=== PATIENT | female | born 1945 | race Caucasian/White ===

== ENCOUNTER → 2018-05-02 07:26 | Outpatient (CLI) | payer MEDICARE, SELFPAY ==
[2018-05-02 09:17] LABS: HDL Cholesterol 49 mg/dL (40-60); Triglycerides 263 mg/dL (35-150)
[2018-05-02 09:24] LABS: Vitamin D 25 Hydroxy (D3) 38.7 ng/mL (30.0-100.0)
[2018-05-02 09:28] LABS: Cholesterol 360 mg/dL (140-199); LDL Cholesterol Calculated 258 mg/dL (<100)
== END ==
PROVIDERS: PCP Family Medicine; Visit Provider Family Medicine
DX: F33.8 Other recurrent depressive disorders (principal); Z13.220 Encounter for screening for lipoid disorders; E78.2 Mixed hyperlipidemia; M85.80 Other specified disorders of bone density and structure, unspecified site; E55.9 Vitamin D deficiency, unspecified
CPT/HCPCS: 36415; 80061; 82306

== ENCOUNTER → 2019-10-26 07:07 | Outpatient (CLI) | payer MEDICARE, SELFPAY ==
[2019-10-26 07:44] LABS: Alanine Aminotransferase 45 IU/L (<35); Albumin 4.1 g/dL (3.5-5.0); Albumin Globulin Ratio 1.5 (1.0-2.8); Alkaline Phosphatase 63 U/L (38-126); Aspartate Aminotransferase 44 IU/L (14-36); BUN Creatinine Ratio 18.3 (6-22); Bilirubin Total 0.7 mg/dL (0.2-1.3); Blood Urea Nitrogen 13 mg/dL (7-17); Calcium 9.1 mg/dL (8.4-10.2); Carbon Dioxide 28 mmol/L (22-32); Chloride 106 mmol/L (98-107); Cholesterol 241 mg/dL (140-199); Estimated Glomerular Filt Rate > 60.0 mL/min (>60); Globulin 2.8 g/dL (1.7-4.1); Glucose 95 mg/dL (80-110); HDL Cholesterol 35 mg/dL (40-60); HEMOLYSIS < 15 (0-50); LDL Cholesterol Calculated 149 mg/dL (<100); Potassium 4.3 mmol/L (3.4-5.1); Sodium 138 mmol/L (137-145); Total Protein 6.9 g/dL (6.3-8.2); Triglycerides 283 mg/dL (35-150)
[2019-10-26 08:50] LABS: Folate 16.2 ng/mL (2.76-20.0); Vitamin B12 642 pg/mL (239-931)
[2019-10-27 07:09] LABS: Insulin Level Total 15.6 uIU/mL (2.6-24.9)
[2019-10-28 00:09] LABS: Methylmalonic Acid,Serum 187 nmol/L (0-378)
== END ==
PROVIDERS: PCP Family Medicine; Referring Provider Family Medicine; Visit Provider Family Medicine
DX: E55.9 Vitamin D deficiency, unspecified (principal); E66.3 Overweight; E78.1 Pure hyperglyceridemia; E78.2 Mixed hyperlipidemia; M85.80 Other specified disorders of bone density and structure, unspecified site; Z83.3 Family history of diabetes mellitus; G62.9 Polyneuropathy, unspecified
CPT/HCPCS: 36415; 80053; 80061; 82607; 82746; 83090; 83525; 83921; 86140

== ENCOUNTER → 2020-06-01 07:31 | Outpatient (CLI) | payer MEDICARE, SELFPAY ==
[2020-06-01 09:40] LABS: Alanine Aminotransferase 20 IU/L (<35); Albumin 3.8 g/dL (3.5-5.0); Albumin Globulin Ratio 1.5 (1.0-2.8); Alkaline Phosphatase 45 U/L (38-126); Aspartate Aminotransferase 27 IU/L (14-36); BUN Creatinine Ratio 27.5 (6-22); Bilirubin Total 0.3 mg/dL (0.2-1.3); Blood Urea Nitrogen 19 mg/dL (7-17); Calcium 9.2 mg/dL (8.4-10.2); Carbon Dioxide 29 mmol/L (22-32); Chloride 106 mmol/L (98-107); Cholesterol 275 mg/dL (140-199); Estimated Glomerular Filt Rate > 60.0 mL/min (>60); Globulin 2.5 g/dL (1.7-4.1); Glucose 92 mg/dL (80-110); HDL Cholesterol 56 mg/dL (40-60); HEMOLYSIS < 15 (0-50); LDL Cholesterol Calculated 197 mg/dL (<100); Potassium 3.7 mmol/L (3.4-5.1); Sodium 139 mmol/L (137-145); Total Protein 6.3 g/dL (6.3-8.2); Triglycerides 108 mg/dL (35-150)
== END ==
PROVIDERS: PCP Family Medicine; Referring Provider Family Medicine; Visit Provider Family Medicine
DX: E66.3 Overweight (principal); E78.2 Mixed hyperlipidemia; E78.1 Pure hyperglyceridemia; G25.81 Restless legs syndrome; G62.9 Polyneuropathy, unspecified; Z83.3 Family history of diabetes mellitus
CPT/HCPCS: 36415; 80053; 80061

== ENCOUNTER 2020-10-10 13:30 | Outpatient (RCR) | payer MEDICARE, SELFPAY ==
--- NOTE | 2020-10-03 17:24 | ST.OPIE ---
Visit Care Team Role Provider Type Rose Mancia DO Attending Provider Physician Primary Care Provider Referring Provider Specialty: [facility] Address: [address] [place] [address], [address], [address] Email: [email or web address] Speech-Language Pathology Initial Evaluation NEUROLOGY MANAGER Adult Cognitive Linguistic Eval Start: 10/03/20 14:55 Freq: Status: Active Protocol: Document 10/03/20 14:57 LNK (Rec: 10/03/20 16:25 LNK [email or web address]) Adult Cognitive Linguistic Evaluation Session Time Visit Start Time 13:30 Visit Stop Time 14:30 Total Visit Minutes 60 Visit Information Visit Number 1 Plan of Care Dates 10/03/20-01/03/21 Referral Referring Provider Rose Mancia MD Reason for Referral Cognition Setting Assessment Location Outpatient Care Visit Type Note Type Initial evaluation Next Note Type Next Note Type Treatment Note Patient Information Identification Type Name,Date of Medical History Amanda Cortez was seen for a cognitive assessment at the referral of her physician, Dr. Mancia. According to records reviewed and discussion with the [facility], she recently had a cognitive screening that demonstrated concerns for cognitive decline . Amanda is here for a more thorough assessment of her cognition. According to Amanda , she has observed lately that she has difficulty with follow through on starting or completing activities she enjoys. Additionally she has noticed that she has been misplacing things such as her phone, keys, etc. She stated that she is currently living alone and it is getting hard to keep up with the maintenance around her home. She described her home as having difficulty getting rid of stuff and that her home is cluttered with a lot of things. She has been told by others that she may have ADHD. She has not followed up on that as she is not concerned. Occupation Status retired Hearing Hearing Level Hearing Aids Vision Comments needs glasses for reading Assessment Oral Motor Examination Completed No: Informal observation indicated oral structures and function are WNL Informal Assessment Receptive Language Normal Yes Expressive Language Normal Yes Speech Normal Yes Speech Impairment(s) Fast speech rate Cognitive Impairment(s) Attention Formal Assessment Standardized Test/Screener Type Cognitive Linguistic Quick Test (CLQT) Administration Complete Results The results of the CLQT are reported over 5 cognitive domains along with a clock drawing task. The domains assessed include: Attention, Memory, Executive Functions, Language, and Visuospatial Skills. During this visit, Amanda scored WNL for all 5 domains. Additionally, she met criteria for all domains for her age. Findings/Results Findings While Amanda's scores were found to be WNL, she did remark that she is beginning to lose items. She has started to place important items in a central place, which is helpful. Additionally, Amanda mentioned that she may be a hoarder and is having difficulty managing the maintenance on her home. She said she isn't following through on activities she enjoys, and doesn't keep up with it all. Her conversation was noted to be very scattered, going from one topic to another. A recommendation for a neuropsychological evaluation is recommended. Concomitant Factors Concomitant Factors Hearing loss Comment Amanda wears BRICENO; however the use of masks by others impacts hearing acuity Plan of Care Short Term Goals Review the results of the CLQT with Amanda.
--- NOTE | 2020-10-03 17:25 | ST.OPPOC ---
Physical, Occupational & Speech Therapy At [facility] Visit Care Team Role Provider Type Rose Mancia DO Attending Provider Physician Primary Care Provider Referring Provider Address: [address] [place] [address], [address], [address] Speech Pathology Plan of Care Plan of Care Dates 10/03/20-01/03/21 Findings While Amanda's scores were found to be WNL, she did remark that she is beginning to lose items. She has started to place important items in a central place, which is helpful. Additionally, Amanda mentioned that she may be a hoarder and is having difficulty managing the maintenance on her home. She said she isn't following through on activities she enjoys, and doesn't keep up with it all. Her conversation was noted to be very scattered, going from one topic to another. A recommendation for a neuropsychological evaluation is recommended. Short Term Goals Review the results of the CLQT with Amanda. Electronically Signed by: HUGO Estrella 10/03/20 [id number] Please Sign and Return: I have reviewed this Plan of Care and certify that the skilled therapy services above are required to meet the patient?s needs. Physician Signature Date Printed Name and Credentials Clinical Instructor Signature Printed Name and Credentials
--- NOTE | 2020-10-10 14:17 | ST.OPDS ---
Visit Care Team Role Provider Type Rose Mancia DO Attending Provider Physician Primary Care Provider Referring Provider Address: [address] [place] [address], [address], [place], [address] CERAMIC DESIGN ENGINEER Treatment Note CERAMIC DESIGN ENGINEER Treatment Note Start: 10/03/20 14:55 Freq: Status: Active Protocol: Document 10/10/20 14:08 LNK (Rec: 10/10/20 14:16 LNK [email or web address]) Speech Pathology Treatment Note Session Time Visit Start Time 13:30 Visit Stop Time 14:05 Total Visit Minutes 35 Visit Information Visit Number 2 Plan of Care Dates 10/03/20-01/03/21 Setting Treatment Setting Outpatient Care Visit Type Note Type Treatment Note Next Note Type Next Note Type Discharge Summary General Information General Information Amanda Cortez was seen for a cognitive assessment at the referral of her physician, Dr. Mancia. According to records reviewed and discussion with the [facility], she recently had a cognitive screening that demonstrated concerns for cognitive decline . Amanda is here for a more thorough assessment of her cognition. Subjective Identification Type Name Identification Reconciled With Intake Sheet Observations/Patient Presentation The results of the CLQT assessment tool are reported over 5 cognitive domains along with a clock drawing task. The domains assessed include: Attention, Memory, Executive Functions, Language, and Visuospatial Skills. During this visit, Amanda scored WNL for all 5 domains. Additionally, she met criteria for all domains for her age. Chief Complaint(s) Cognitive Patient Knowledge/Awareness of CERAMIC DESIGN ENGINEER Role Good in Treatment Objective Short Term Goals Review the results of the CLQT with Amanda. Treatment Activities The results of the CLQT were reviewed with Amanda and all questions were answered. The evaluation report was reviewed as well. Amanda was pleased with the results and relieved. She also reported that after the evaluation session, she went home and removed some of the clutter, donating some things and recycling others. She felt good about her changes. Currently Amanda is keeping lists of activities to do, buy and complete. This has been something she has been doing for some time, she stated. No ST is recommended at this time. Pt is discharged. Assessment Progress Towards Goals Appropriate for Discharge Plan Amount of Therapy Recommended No Further Therapy Therapy Recommendations Discharge from Speech Therapy
== END 2020-10-11 08:58 | disposition home or self-care (01) ==
LOC: SP 13:30
PROVIDERS: PCP Family Medicine; Referring Provider Family Medicine; Visit Provider Family Medicine
DX: Z97.4 Presence of external hearing-aid (principal); R41.3 Other amnesia
CPT/HCPCS: 92507; 96125

== ENCOUNTER 2020-12-15 13:00 | Outpatient (RCR) | payer MEDICARE, SELFPAY ==
[2020-10-20 09:45] VITALS: BP 110/58
--- NOTE | 2020-10-20 16:18 | PT.OIE ---
Current Diagnoses Difficulty in walking, not elsewhere classified (10/20/20) Unspecified abnormalities of gait and mobility (10/20/20) Past Medical History (Last Reviewed 09/15/20 @ 12:54 by Jose Mackenzie MD) BCC (basal cell carcinoma of skin) Cataract Family history of diabetes mellitus 2 para 2 History of cataract surgery (2013) History of SCC (squamous cell carcinoma) of skin Hyperlipidemia, mixed Neuropathy Normal Papanicolaou smear Obstructive sleep apnea treated with continuous positive airway pressure (CPAP) (01/03/17) Osteopenia (03/01/17) Pneumonia Postmenopausal Restless legs syndrome (01/04/16) RLS (restless legs syndrome) Seasonal affective disorder Status post surgical removal of malignant neoplasm of skin (1993) Vitamin D deficiency (04/19/17) Wears hearing aid in both ears (~05/2017) Past Surgical History (Last Reviewed 09/15/20 @ 12:54 by Jose Mackenzie MD) Anesthesia History of cataract surgery (2013) Status post surgical removal of malignant neoplasm of skin (1993) Visit Care Team Role Provider Type Rose Mancia DO Attending Provider Physician Family Provider Primary Care Provider Referring Provider Specialty: Family Practice Address: [address] [place] [address], [address], [facility] Email: [email or web address] Physical Therapy Initial Evaluation PT-OP-A Visit Information Start: 10/20/20 08:34 Freq: Status: Active Protocol: Document 10/20/20 09:45 AW (Rec: 10/20/20 17:17 AW [email or web address]) Out-Patient Physical Therapy Visit Information Visit Information Visit Type Initial Evaluation Visit Start Time 09:00 Visit Stop Time 09:45 Total Visit Minutes 45 Visit Number 1 Number of APPEALS NURSE Visits 0 Evaluation Information Evaluation Date 10/20/20 PT-OP-B Current Condition Start: 10/20/20 08:34 Freq: Status: Active Protocol: Document 10/20/20 09:45 AW (Rec: 10/20/20 08:42 AW [email or web address]) Current Condition History of Current Condition Onset Date at least a year Current Complaints imbalance, falls History of Current Condition Amanda reports falling once weekly and having difficulty getting off the floor. She believes there is an inattention component. She is falling mostly at home - inside or out in her garden. She admits her home is cluttered. She occasionally forgets she's wearing reading glasses which causes her to be disoriented. She denies any injurous falls but has many bruises. Her mother at age 94 after a fall. Pt endorses some lightheadedness when she changes position too suddenly. Her BP is typically low. She notes she has occasional tingling in the tops of her feet and anterior shins but that this improved with a 25# weight loss last year. Pt lives alone in [place]. She regularly walks with friends on the [employer]. The more I do, the easier it is to do it. Prior Treatments and Tests Saw ORTHODONTIC BAND MAKER for cognition screen which was WNL. Pt attended due to memory concerns but feels she has effective strategies to compensate. Future Testing and Treatments Planned 110/58 Developmental History Developmental History Pt has CHANCE and uses CPAP for sleep. She had RLS which resolved with weight loss. She has hearing loss and uses bilateral hearing aids. Treatment Goals Patient/Caregiver Goals Pt would like to be able to get on and off her men's bike without falling. She would like to be able to get up from the floor with more ease. SHe would like to be able to use her soaking tub. PT-OP-C Subjective Start: 10/20/20 08:34 Freq: Status: Active Protocol: Document 10/20/20 09:45 AW (Rec: 10/20/20 17:17 AW [email or web address]) OP-PT Subjective Patient Comments Patient Comments I'd like to be able to get off the floor more easily. Patient Questionnaires ABC- Activity Specific Balance Confidence Scale ABC Score 42 ABC Functional Impairment 40 to <60% Impaired (Score 41- 60) OP-PT Pain Assessment Pain Assessment Grid Paper Pain Assessment Grid Completed Yes: Pt denies pain PT-OP-D Balance Start: 10/20/20 08:34 Freq: Status: Active Protocol: Document 10/20/20 09:45 AW (Rec: 10/20/20 17:23 AW [email or web address]) Balance Tests mCTSIB mCTSIB Position 1 30 mCTSIB Position 2 20 - 25 - 20 mCTSIB Position 3 25 - 20 - 18 mCTSIB Position 4 20 - 15 - 16 PT-OP-E Functional Tests Start: 10/20/20 08:34 Freq: Status: Active Protocol: Document 10/20/20 09:45 AW (Rec: 10/20/20 17:28 AW [email or web address]) Functional Tests Five Times Sit to Stand Test Score 16.9 sec Comments 5 full sit <> stands without UE support Other Functional Gait Assessment Name of Test FGA Score Comment see scanned score sheet PT-OP-H Neuro Start: 10/20/20 08:34 Freq: Status: Active Protocol: Document 10/20/20 09:45 AW (Rec: 10/20/20 17:23 AW [email or web address]) Sensation Evaluation Gross Sensation Gross Sensation Left LE Impaired,Right LE Impaired Sensation Description Tingling Comments Summary Comments Pt endorses occasional tingling BLE from tops of feet to anterior shins. She states this has improved since she lost 25# last year. Coordination Evaluation Comments Coordination Comments All coordination testing ( finger to nose EO and EC, rapid pronation/supination, and foot tapping) WNL. Deep Tendon Reflex & Clonus Assessment Deep Tendon Reflex Bilateral Patellar Deep Tendon Reflex 2+ Normal Bilateral Bicep Deep Tendon Reflex 2+ Normal Vital Signs Blood Pressure Sitting Blood Pressure (90/60-120/80 mmHg) 110/58 L Blood Pressure Source Manual Cuff,Right Upper Extremity PT-OP-K Range of Motion Start: 10/20/20 08:34 Freq: Status: Active Protocol: Document 10/20/20 09:45 AW (Rec: 10/20/20 17:25 AW [email or web address]) Hip Goniometric Range of Motion Hip bilateral Hip ROM WFL Yes Testing Position Supine Comments All hip ROM WNL PT-OP-M Strength Start: 10/20/20 08:34 Freq: Status: Active Protocol: Document 10/20/20 09:45 AW (Rec: 10/20/20 17:25 AW [email or web address]) Hip Strength Hip Manual Muscle Testing bilateral Flexion (L2) 4 Good Extension (S1) 4 Good Abduction 4 Good Adduction 4+ Good+ External Rotation 4+ Good+ Internal Rotation 4+ Good+ Knee Strength Knee Manual Muscle Testing bilateral Flexion (S2) 5 Normal Extension (L3) 5 Normal PT-OP-T Assessment and Plan Start: 10/20/20 08:34 Freq: Status: Active Protocol: Document 10/20/20 09:45 AW (Rec: 10/23/20 16:18 AW [id number]) Physical Therapy Assessment Rehab Potential Rehabilitation Potential Good Evaluation Complexity Number of Personal Factors/Comorbidities 1-2 Number of Body Systems Impaired 3 Clinical Presentation at Evaluation Stable Impairments Impairments Balance,Gait,Sensation, Strength,Vestibular Other Concerns Fall Risk moderate per FGA Barriers to Rehabilitation Pt acknowledges her home is cluttered. She has had some memory concerns but cognitive testing was WNL and pt feels she has effective compensatory strategies. Goals Five Impairment falls Communications Strategist Goal (LTG) Pt will reduce falls frequency from weekly to monthly or less. LTG Duration 2 months - 12/23/20 Four Impairment self-efficacy Senior Care Goal (LTG) Pt will improve ABC Scale score from 42% to 60% or greater to demonstrate reduction in falls risk LTG Duration 2 months - 12/23/20 Three Impairment floor transfers Short Term Goal (STG) Pt will get in and out of her soaking tub without fear of falling. STG Duration 4 weeks - 11/17/20 Senior Care Goal (LTG) Pt will rise from the floor with or without chair support in 10 seconds or less to demonstrate improved strength and self-efficacy. LTG Duration 2 months - 12/23/20 Two Impairment strength Short Term Goal (STG) Pt will complete 5 Time Sit to Stand with no UE support in 12 seconds or less to demonstrate improved strength and reduction in falls risk. STG Duration 4 weeks - 11/17/20 Communications Strategist Goal (LTG) Pt will improve hip strength to at least 4+/5 all planes for improved stability in gait . LTG Duration 2 months - 12/23/20 One Impairment impaired balance Short Term Goal (STG) Pt will score 120 on mCTSIB to demonstrate improved balance systems integration. STG Duration 4 weeks - 11/17/20 Senior Care Goal (LTG) Pt will improve Functional Gait Assessment score from 23/ 30 to 26/30 or greater to match norms for age-matched peers and demonstrate reduction in falls risk. LTG Duration 2 months - 12/23/20 Assessment Summary Assessment Amanda is a 75 yo community- dwelling woman who presents to outpatient PT with complaints of frequent falls - up to once weekly. She is independent without assistive device at baseline. She reports her falls occur mostly at home - either inside in cluttered areas or outside on uneven surfaces. On assessment , pt has impaired bilateral hip strength, deficits in balance systems integration, and dynamic balance impairments which are contributing to her falls. Amanda is expected to benefit from skilled PT to address these impairments for overall reduction in her falls risk and to improve her ability to participate in self-care and recreational activities. Physical Therapy Plan Frequency and Duration Frequency of Treatment 1-2x/week Duration of Treatment 2 months Plan of Care Start Date 10/20/20 Plan of Care End Date 12/23/20 Therapeutic Interventions Therapeutic Interventions Balance Training,Gait Training ,Home Exercise Program, Neuromuscular Re-education, Patient/Caregiver Education, Self-Care/Home Management, Sensory Integration, Therapeutic Activities, Therapeutic Exercises Next Visit Focus/Plan Next Note Type Treatment Note Next Visit Plan Initiate static balance interventions. Consider dual task, increasing cognitive load.
--- NOTE | 2020-10-20 16:18 | PT.OPPOC ---
Physical, Occupational & Speech Therapy At [facility] Current Diagnoses Difficulty in walking, not elsewhere classified (10/20/20) Unspecified abnormalities of gait and mobility (10/20/20) Visit Care Team Role Provider Type Rose Mancia DO Attending Provider Physician Family Provider Primary Care Provider Referring Provider Specialty: Family Practice Address: [address] [place] [address], [address], [facility] Email: [email or web address] Plan Of Care PT-OP-T Assessment and Plan Start: 10/20/20 08:34 Freq: Status: Active Protocol: Document 10/20/20 09:45 AW (Rec: 10/23/20 16:18 AW [id number]) Physical Therapy Assessment Rehab Potential Rehabilitation Potential Good Evaluation Complexity Number of Personal Factors/Comorbidities 1-2 Number of Body Systems Impaired 3 Clinical Presentation at Evaluation Stable Impairments Impairments Balance,Gait,Sensation, Strength,Vestibular Other Concerns Fall Risk moderate per FGA Barriers to Rehabilitation Pt acknowledges her home is cluttered. She has had some memory concerns but cognitive testing was WNL and pt feels she has effective compensatory strategies. Goals Five Impairment falls Half-Way Goal (LTG) Pt will reduce falls frequency from weekly to monthly or less. LTG Duration 2 months - 12/23/20 Four Impairment self-efficacy Hand Flesher Goal (LTG) Pt will improve ABC Scale score from 42% to 60% or greater to demonstrate reduction in falls risk LTG Duration 2 months - 12/23/20 Three Impairment floor transfers Short Term Goal (STG) Pt will get in and out of her soaking tub without fear of falling. STG Duration 4 weeks - 11/17/20 Half-Way Goal (LTG) Pt will rise from the floor with or without chair support in 10 seconds or less to demonstrate improved strength and self-efficacy. LTG Duration 2 months - 12/23/20 Two Impairment strength Short Term Goal (STG) Pt will complete 5 Time Sit to Stand with no UE support in 12 seconds or less to demonstrate improved strength and reduction in falls risk. STG Duration 4 weeks - 11/17/20 Half-Way Goal (LTG) Pt will improve hip strength to at least 4+/5 all planes for improved stability in gait . LTG Duration 2 months - 12/23/20 One Impairment impaired balance Short Term Goal (STG) Pt will score 120 on mCTSIB to demonstrate improved balance systems integration. STG Duration 4 weeks - 11/17/20 Half-Way Goal (LTG) Pt will improve Functional Gait Assessment score from 23/ 30 to 26/30 or greater to match norms for age-matched peers and demonstrate reduction in falls risk. LTG Duration 2 months - 12/23/20 Assessment Summary Assessment Amanda is a 75 yo community- dwelling woman who presents to outpatient PT with complaints of frequent falls - up to once weekly. She is independent without assistive device at baseline. She reports her falls occur mostly at home - either inside in cluttered areas or outside on uneven surfaces. On assessment , pt has impaired bilateral hip strength, deficits in balance systems integration, and dynamic balance impairments which are contributing to her falls. Amanda is expected to benefit from skilled PT to address these impairments for overall reduction in her falls risk and to improve her ability to participate in self-care and recreational activities. Physical Therapy Plan Frequency and Duration Frequency of Treatment 1-2x/week Duration of Treatment 2 months Plan of Care Start Date 10/20/20 Plan of Care End Date 12/23/20 Therapeutic Interventions Therapeutic Interventions Balance Training,Gait Training ,Home Exercise Program, Neuromuscular Re-education, Patient/Caregiver Education, Self-Care/Home Management, Sensory Integration, Therapeutic Activities, Therapeutic Exercises Next Visit Focus/Plan Next Note Type Treatment Note Next Visit Plan Initiate static balance interventions. Consider dual task, increasing cognitive load. Plan of Care Dates Plan of Care Start Date 10/20/20 Plan of Care End Date 12/23/20 Electronically Signed by: Cris No, PT 10/23/20 [id number] Please Sign and Return: I have reviewed this Plan of Care and certify that the skilled therapy services above are required to meet the patient?s needs. Physician Signature Date Printed Name and Credentials Clinical Instructor Signature Printed Name and Credentials
--- NOTE | 2020-10-26 17:05 | PT.OTN ---
Current Diagnoses Difficulty in walking, not elsewhere classified (10/26/20) Unspecified abnormalities of gait and mobility (10/26/20) Physical Therapy Treatment Note PT-OP-A Visit Information Start: 10/20/20 08:34 Freq: Status: Active Protocol: Document 10/26/20 16:45 AW (Rec: 10/26/20 16:57 AW [id number]) Out-Patient Physical Therapy Visit Information Visit Information Visit Type Treatment Note Visit Start Time 16:00 Visit Stop Time 16:45 Total Visit Minutes 45 Visit Number 2 Number of ASSOCIATE DIRECTOR REGULATORY AFFAIRS Visits 0 PT-OP-B Current Condition Start: 10/20/20 08:34 Freq: Status: Active Protocol: Document 10/20/20 09:45 AW (Rec: 10/20/20 08:42 AW [email or web address]) Current Condition History of Current Condition Onset Date at least a year Current Complaints imbalance, falls History of Current Condition Amanda reports falling once weekly and having difficulty getting off the floor. She believes there is an inattention component. She is falling mostly at home - inside or out in her garden. She admits her home is cluttered. She occasionally forgets she's wearing reading glasses which causes her to be disoriented. She denies any injurous falls but has many bruises. Her mother at age 94 after a fall. Pt endorses some lightheadedness when she changes position too suddenly. Her BP is typically low. She notes she has occasional tingling in the tops of her feet and anterior shins but that this improved with a 25# weight loss last year. Pt lives alone in [place]. She regularly walks with friends on the [facility] trails. The more I do, the easier it is to do it. Prior Treatments and Tests Saw PUNCH MACHINE HAND for cognition screen which was WNL. Pt attended due to memory concerns but feels she has effective strategies to compensate. Future Testing and Treatments Planned 110/58 Developmental History Developmental History Pt has CHANCE and uses CPAP for sleep. She had RLS which resolved with weight loss. She has hearing loss and uses bilateral hearing aids. Treatment Goals Patient/Caregiver Goals Pt would like to be able to get on and off her men's bike without falling. She would like to be able to get up from the floor with more ease. SHe would like to be able to use her soaking tub. PT-OP-C Subjective Start: 10/20/20 08:34 Freq: Status: Active Protocol: Document 10/26/20 16:45 AW (Rec: 10/26/20 17:01 AW [email or web address]) OP-PT Subjective Patient Comments Patient Comments I've been using the sit to stand technique you taught me. PT-OP-D Balance Start: 10/20/20 08:34 Freq: Status: Active Protocol: Document 10/20/20 09:45 AW (Rec: 10/20/20 17:23 AW [email or web address]) Balance Tests mCTSIB mCTSIB Position 1 30 mCTSIB Position 2 20 - 25 - 20 mCTSIB Position 3 25 - 20 - 18 mCTSIB Position 4 20 - 15 - 16 PT-OP-E Functional Tests Start: 10/20/20 08:34 Freq: Status: Active Protocol: Document 10/20/20 09:45 AW (Rec: 10/20/20 17:28 AW [email or web address]) Functional Tests Five Times Sit to Stand Test Score 16.9 sec Comments 5 full sit <> stands without UE support Other Functional Gait Assessment Name of Test FGA Score Comment see scanned score sheet PT-OP-H Neuro Start: 10/20/20 08:34 Freq: Status: Active Protocol: Document 10/20/20 09:45 AW (Rec: 10/20/20 17:23 AW [email or web address]) Sensation Evaluation Gross Sensation Gross Sensation Left LE Impaired,Right LE Impaired Sensation Description Tingling Comments Summary Comments Pt endorses occasional tingling BLE from tops of feet to anterior shins. She states this has improved since she lost 25# last year. Coordination Evaluation Comments Coordination Comments All coordination testing ( finger to nose EO and EC, rapid pronation/supination, and foot tapping) WNL. Deep Tendon Reflex & Clonus Assessment Deep Tendon Reflex Bilateral Patellar Deep Tendon Reflex 2+ Normal Bilateral Bicep Deep Tendon Reflex 2+ Normal Vital Signs Blood Pressure Sitting Blood Pressure (90/60-120/80 mmHg) 110/58 L Blood Pressure Source Manual Cuff,Right Upper Extremity PT-OP-K Range of Motion Start: 10/20/20 08:34 Freq: Status: Active Protocol: Document 10/20/20 09:45 AW (Rec: 10/20/20 17:25 AW [email or web address]) Hip Goniometric Range of Motion Hip bilateral Hip ROM WFL Yes Testing Position Supine Comments All hip ROM WNL PT-OP-M Strength Start: 10/20/20 08:34 Freq: Status: Active Protocol: Document 10/20/20 09:45 AW (Rec: 10/20/20 17:25 AW [email or web address]) Hip Strength Hip Manual Muscle Testing bilateral Flexion (L2) 4 Good Extension (S1) 4 Good Abduction 4 Good Adduction 4+ Good+ External Rotation 4+ Good+ Internal Rotation 4+ Good+ Knee Strength Knee Manual Muscle Testing bilateral Flexion (S2) 5 Normal Extension (L3) 5 Normal PT-OP-Q Treatments Start: 10/20/20 08:34 Freq: Status: Active Protocol: Document 10/26/20 16:45 AW (Rec: 10/26/20 16:57 AW [id number]) Therapeutic Exercises Supine Exercises bridge Supine Exercise Name bridge Reps/Minutes 3SH x 8 Comments cued PPT and heel drive; HEP pec stretch Supine Exercise Name pec stretch Side bilateral Reps/Minutes 60 sec x 2 Comments on tx table; arms ~110 deg abducted; HEP Neuro Re-Education Treatment Balance Activities gait with head turns Details gait with head turns Surface level Reps/Duration 5 min Comments Pt requires CGA for lateral LOB x 3. gaze stabilzation Details gaze stabilzation Surface seated Reps/Duration 5 min Comments Index card held at arm length. Pt instructed to keep letters in focus. Pt able to stabilize gaze with head turns at 120 bpm without losing focus, no dizziness. corner balance Details WBOS NBOS and semi-tandem stance with EO, EC, and head turns Surface level Equipment corner, chair in front Reps/Duration 25 min PT-OP-T Assessment and Plan Start: 10/20/20 08:34 Freq: Status: Active Protocol: Document 10/26/20 16:45 AW (Rec: 10/26/20 17:05 AW [email or web address]) Physical Therapy Assessment Goals Five Impairment falls Fci Goal (LTG) Pt will reduce falls frequency from weekly to monthly or less. LTG Duration 2 months - 12/23/20 Four Impairment self-efficacy Fci Goal (LTG) Pt will improve ABC Scale score from 42% to 60% or greater to demonstrate reduction in falls risk LTG Duration 2 months - 12/23/20 Three Impairment floor transfers Short Term Goal (STG) Pt will get in and out of her soaking tub without fear of falling. STG Duration 4 weeks - 11/17/20 Tractor Trailer Truck Driver Goal (LTG) Pt will rise from the floor with or without chair support in 10 seconds or less to demonstrate improved strength and self-efficacy. LTG Duration 2 months - 12/23/20 Two Impairment strength Short Term Goal (STG) Pt will complete 5 Time Sit to Stand with no UE support in 12 seconds or less to demonstrate improved strength and reduction in falls risk. STG Duration 4 weeks - 11/17/20 Tractor Trailer Truck Driver Goal (LTG) Pt will improve hip strength to at least 4+/5 all planes for improved stability in gait . LTG Duration 2 months - 12/23/20 One Impairment impaired balance Short Term Goal (STG) Pt will score 120 on mCTSIB to demonstrate improved balance systems integration. STG Duration 4 weeks - 11/17/20 Tractor Trailer Truck Driver Goal (LTG) Pt will improve Functional Gait Assessment score from 23/ 30 to 26/30 or greater to match norms for age-matched peers and demonstrate reduction in falls risk. LTG Duration 2 months - 12/23/20 Assessment Summary Assessment Treatment focused on static balance. Also initiated hip strengthening. Educated pt to use corner and chair for standing balance at home. Issued initial HEP to include bridge, pec stretch, and semi- tandem stance with eyes open in corner with chair in front Physical Therapy Plan Frequency and Duration Frequency of Treatment 1-2x/week Duration of Treatment 2 months Plan of Care Start Date 10/20/20 Plan of Care End Date 12/23/20 Therapeutic Interventions Therapeutic Interventions Balance Training,Gait Training ,Home Exercise Program, Neuromuscular Re-education, Patient/Caregiver Education, Self-Care/Home Management, Sensory Integration, Therapeutic Activities, Therapeutic Exercises Next Visit Focus/Plan Next Note Type Treatment Note Next Visit Plan Review static balance and progress as able. Consider dual task, increasing cognitive load.
--- NOTE | 2020-10-28 09:45 | PT.OTN ---
Current Diagnoses Difficulty in walking, not elsewhere classified (10/28/20) Unspecified abnormalities of gait and mobility (10/28/20) Physical Therapy Treatment Note PT-OP-A Visit Information Start: 10/20/20 08:34 Freq: Status: Active Protocol: Document 10/28/20 09:02 SP (Rec: 10/28/20 12:16 SP [id number]) Out-Patient Physical Therapy Visit Information Visit Information Visit Type Treatment Note Visit Start Time 09:02 Visit Stop Time 09:45 Total Visit Minutes 43 Visit Number 3 Number of HULLER OPERATOR Visits 1 Evaluation Information Evaluation Date 10/20/20 PT-OP-B Current Condition Start: 10/20/20 08:34 Freq: Status: Active Protocol: Document 10/20/20 09:45 AW (Rec: 10/20/20 08:42 AW [email or web address]) Current Condition History of Current Condition Onset Date at least a year Current Complaints imbalance, falls History of Current Condition Amanda reports falling once weekly and having difficulty getting off the floor. She believes there is an inattention component. She is falling mostly at home - inside or out in her garden. She admits her home is cluttered. She occasionally forgets she's wearing reading glasses which causes her to be disoriented. She denies any injurous falls but has many bruises. Her mother at age 94 after a fall. Pt endorses some lightheadedness when she changes position too suddenly. Her BP is typically low. She notes she has occasional tingling in the tops of her feet and anterior shins but that this improved with a 25# weight loss last year. Pt lives alone in [place]. She regularly walks with friends on the [facility] trails. The more I do, the easier it is to do it. Prior Treatments and Tests Saw LEATHER TACKER for cognition screen which was WNL. Pt attended due to memory concerns but feels she has effective strategies to compensate. Future Testing and Treatments Planned 110/58 Developmental History Developmental History Pt has CHANCE and uses CPAP for sleep. She had RLS which resolved with weight loss. She has hearing loss and uses bilateral hearing aids. Treatment Goals Patient/Caregiver Goals Pt would like to be able to get on and off her men's bike without falling. She would like to be able to get up from the floor with more ease. SHe would like to be able to use her soaking tub. PT-OP-C Subjective Start: 10/20/20 08:34 Freq: Status: Active Protocol: Document 10/28/20 09:02 SP (Rec: 10/28/20 12:16 SP [id number]) OP-PT Subjective Patient Comments Patient Comments Pt states was little sore after last tx. PT-OP-D Balance Start: 10/20/20 08:34 Freq: Status: Active Protocol: Document 10/20/20 09:45 AW (Rec: 10/20/20 17:23 AW [email or web address]) Balance Tests mCTSIB mCTSIB Position 1 30 mCTSIB Position 2 20 - 25 - 20 mCTSIB Position 3 25 - 20 - 18 mCTSIB Position 4 20 - 15 - 16 PT-OP-E Functional Tests Start: 10/20/20 08:34 Freq: Status: Active Protocol: Document 10/20/20 09:45 AW (Rec: 10/20/20 17:28 AW [email or web address]) Functional Tests Five Times Sit to Stand Test Score 16.9 sec Comments 5 full sit <> stands without UE support Other Functional Gait Assessment Name of Test FGA Score Comment see scanned score sheet PT-OP-H Neuro Start: 10/20/20 08:34 Freq: Status: Active Protocol: Document 10/20/20 09:45 AW (Rec: 10/20/20 17:23 AW [email or web address]) Sensation Evaluation Gross Sensation Gross Sensation Left LE Impaired,Right LE Impaired Sensation Description Tingling Comments Summary Comments Pt endorses occasional tingling BLE from tops of feet to anterior shins. She states this has improved since she lost 25# last year. Coordination Evaluation Comments Coordination Comments All coordination testing ( finger to nose EO and EC, rapid pronation/supination, and foot tapping) WNL. Deep Tendon Reflex & Clonus Assessment Deep Tendon Reflex Bilateral Patellar Deep Tendon Reflex 2+ Normal Bilateral Bicep Deep Tendon Reflex 2+ Normal Vital Signs Blood Pressure Sitting Blood Pressure (90/60-120/80 mmHg) 110/58 L Blood Pressure Source Manual Cuff,Right Upper Extremity PT-OP-K Range of Motion Start: 10/20/20 08:34 Freq: Status: Active Protocol: Document 10/20/20 09:45 AW (Rec: 10/20/20 17:25 AW [email or web address]) Hip Goniometric Range of Motion Hip bilateral Hip ROM WFL Yes Testing Position Supine Comments All hip ROM WNL PT-OP-M Strength Start: 10/20/20 08:34 Freq: Status: Active Protocol: Document 10/20/20 09:45 AW (Rec: 10/20/20 17:25 AW [email or web address]) Hip Strength Hip Manual Muscle Testing bilateral Flexion (L2) 4 Good Extension (S1) 4 Good Abduction 4 Good Adduction 4+ Good+ External Rotation 4+ Good+ Internal Rotation 4+ Good+ Knee Strength Knee Manual Muscle Testing bilateral Flexion (S2) 5 Normal Extension (L3) 5 Normal PT-OP-Q Treatments Start: 10/20/20 08:34 Freq: Status: Active Protocol: Document 10/28/20 09:02 SP (Rec: 10/28/20 12:16 SP [id number]) Therapeutic Exercises Supine Exercises TA, Neutral pelvis Supine Exercise Name warm up to bridge ( has been doing for correct form self) Reps/Minutes 5 sec hold x10 Comments good core fac, PPT HEP bridge Supine Exercise Name bridge Reps/Minutes 3SH x 10 Comments cued PPT and heel drive; HEP pec stretch Supine Exercise Name pec stretch Side bilateral Equipment Used next tx assess over noodle Reps/Minutes 60 sec x 2 Comments on tx table; arms ~120 deg abducted; HEP Sitting Exercises pirformis stretch Sitting Exercise Name added toHEP Side bilateral Reps/Minutes 30 x2 Comments good feedback stretch post activity Standing Exercises Hip abd, ext Standing Exercise Name added to HEP for LE strength assist mus fac toward balance Side bilateral Equipment Used contact rail Reps/Minutes x10 each direction Comments cued slower eccentric control, neutral LS Neuro Re-Education Treatment Balance Activities corner balance Details WBOS NBOS and semi-tandem stance with EO, EC, and head turns Surface level Equipment corner, chair in front Reps/Duration 20 min Comments 30 semi tandem, minor self corrections wt shift L foot front, R UT recruitment compensations more sway to L during R foot front close SBA. Head turns semi tandem each postion LOB to L with self recovery on chair when stop movement. Cued core and hip abd fac with even wt BLE, improved balance and gaze object for static recovery post head turns. PT-OP-T Assessment and Plan Start: 10/20/20 08:34 Freq: Status: Active Protocol: Document 10/28/20 09:02 SP (Rec: 08/27/21 12:16 SP [id number]) Physical Therapy Assessment Goals Five Impairment falls Captain Waiter/Waitress Goal (LTG) Pt will reduce falls frequency from weekly to monthly or less. LTG Duration 2 months - 12/23/20 Four Impairment self-efficacy Usp Goal (LTG) Pt will improve ABC Scale score from 42% to 60% or greater to demonstrate reduction in falls risk LTG Duration 2 months - 12/23/20 Three Impairment floor transfers Short Term Goal (STG) Pt will get in and out of her soaking tub without fear of falling. STG Duration 4 weeks - 11/17/20 Captain Waiter/Waitress Goal (LTG) Pt will rise from the floor with or without chair support in 10 seconds or less to demonstrate improved strength and self-efficacy. LTG Duration 2 months - 12/23/20 Two Impairment strength Short Term Goal (STG) Pt will complete 5 Time Sit to Stand with no UE support in 12 seconds or less to demonstrate improved strength and reduction in falls risk. STG Duration 4 weeks - 11/17/20 Usp Goal (LTG) Pt will improve hip strength to at least 4+/5 all planes for improved stability in gait . LTG Duration 2 months - 12/23/20 One Impairment impaired balance Short Term Goal (STG) Pt will score 120 on mCTSIB to demonstrate improved balance systems integration. STG Duration 4 weeks - 11/17/20 Captain Waiter/Waitress Goal (LTG) Pt will improve Functional Gait Assessment score from 23/ 30 to 26/30 or greater to match norms for age-matched peers and demonstrate reduction in falls risk. LTG Duration 2 months - 12/23/20 Assessment Summary Assessment Tx focused on static balance with head turns EO and static EC, initated static hip strengthening in standing. Pt stated decreased hip soreness with seated hip IR stretch added for home. Physical Therapy Plan Frequency and Duration Frequency of Treatment 1-2x/week Duration of Treatment 2 months Plan of Care Start Date 10/20/20 Plan of Care End Date 12/23/20 Therapeutic Interventions Therapeutic Interventions Balance Training,Gait Training ,Home Exercise Program, Neuromuscular Re-education, Patient/Caregiver Education, Self-Care/Home Management, Sensory Integration, Therapeutic Activities, Therapeutic Exercises Next Visit Focus/Plan Next Note Type Treatment Note Next Visit Plan Assess respones to initiated hip abd, ext and corner balance last tx. POC: Review static balance and progress as able. Consider dual task, increasing cognitive load.
--- NOTE | 2020-11-01 17:01 | PT.OTN ---
Current Diagnoses Difficulty in walking, not elsewhere classified (11/01/20) Unspecified abnormalities of gait and mobility (11/01/20) Physical Therapy Treatment Note PT-OP-A Visit Information Start: 10/20/20 08:34 Freq: Status: Active Protocol: Document 11/01/20 15:15 AW (Rec: 11/01/20 17:01 AW [email or web address]) Out-Patient Physical Therapy Visit Information Visit Information Visit Type Treatment Note Visit Start Time 14:30 Visit Stop Time 15:15 Total Visit Minutes 45 Visit Number 4 Number of LAMINATED PLASTICS ASSEMBLER AND GLUER Visits 0 Evaluation Information Evaluation Date 10/20/20 PT-OP-B Current Condition Start: 10/20/20 08:34 Freq: Status: Active Protocol: Document 10/20/20 09:45 AW (Rec: 10/20/20 08:42 AW [email or web address]) Current Condition History of Current Condition Onset Date at least a year Current Complaints imbalance, falls History of Current Condition Amanda reports falling once weekly and having difficulty getting off the floor. She believes there is an inattention component. She is falling mostly at home - inside or out in her garden. She admits her home is cluttered. She occasionally forgets she's wearing reading glasses which causes her to be disoriented. She denies any injurous falls but has many bruises. Her mother at age 94 after a fall. Pt endorses some lightheadedness when she changes position too suddenly. Her BP is typically low. She notes she has occasional tingling in the tops of her feet and anterior shins but that this improved with a 25# weight loss last year. Pt lives alone in [place]. She regularly walks with friends on the [facility] trails. The more I do, the easier it is to do it. Prior Treatments and Tests Saw BIOFUELS MANAGER for cognition screen which was WNL. Pt attended due to memory concerns but feels she has effective strategies to compensate. Future Testing and Treatments Planned 110/58 Developmental History Developmental History Pt has CHANCE and uses CPAP for sleep. She had RLS which resolved with weight loss. She has hearing loss and uses bilateral hearing aids. Treatment Goals Patient/Caregiver Goals Pt would like to be able to get on and off her men's bike without falling. She would like to be able to get up from the floor with more ease. SHe would like to be able to use her soaking tub. PT-OP-C Subjective Start: 10/20/20 08:34 Freq: Status: Active Protocol: Document 11/01/20 15:15 AW (Rec: 11/01/20 17:01 AW [email or web address]) OP-PT Subjective Patient Comments Patient Comments Pt is sore after PT but denies pain. No falls in two weeks now. PT-OP-D Balance Start: 10/20/20 08:34 Freq: Status: Active Protocol: Document 10/20/20 09:45 AW (Rec: 10/20/20 17:23 AW [email or web address]) Balance Tests mCTSIB mCTSIB Position 1 30 mCTSIB Position 2 20 - 25 - 20 mCTSIB Position 3 25 - 20 - 18 mCTSIB Position 4 20 - 15 - 16 PT-OP-E Functional Tests Start: 10/20/20 08:34 Freq: Status: Active Protocol: Document 10/20/20 09:45 AW (Rec: 10/20/20 17:28 AW [email or web address]) Functional Tests Five Times Sit to Stand Test Score 16.9 sec Comments 5 full sit <> stands without UE support Other Functional Gait Assessment Name of Test FGA Score Comment see scanned score sheet PT-OP-H Neuro Start: 10/20/20 08:34 Freq: Status: Active Protocol: Document 10/20/20 09:45 AW (Rec: 10/20/20 17:23 AW [email or web address]) Sensation Evaluation Gross Sensation Gross Sensation Left LE Impaired,Right LE Impaired Sensation Description Tingling Comments Summary Comments Pt endorses occasional tingling BLE from tops of feet to anterior shins. She states this has improved since she lost 25# last year. Coordination Evaluation Comments Coordination Comments All coordination testing ( finger to nose EO and EC, rapid pronation/supination, and foot tapping) WNL. Deep Tendon Reflex & Clonus Assessment Deep Tendon Reflex Bilateral Patellar Deep Tendon Reflex 2+ Normal Bilateral Bicep Deep Tendon Reflex 2+ Normal Vital Signs Blood Pressure Sitting Blood Pressure (90/60-120/80 mmHg) 110/58 L Blood Pressure Source Manual Cuff,Right Upper Extremity PT-OP-K Range of Motion Start: 10/20/20 08:34 Freq: Status: Active Protocol: Document 10/20/20 09:45 AW (Rec: 10/20/20 17:25 AW [email or web address]) Hip Goniometric Range of Motion Hip bilateral Hip ROM WFL Yes Testing Position Supine Comments All hip ROM WNL PT-OP-M Strength Start: 10/20/20 08:34 Freq: Status: Active Protocol: Document 10/20/20 09:45 AW (Rec: 10/20/20 17:25 AW [email or web address]) Hip Strength Hip Manual Muscle Testing bilateral Flexion (L2) 4 Good Extension (S1) 4 Good Abduction 4 Good Adduction 4+ Good+ External Rotation 4+ Good+ Internal Rotation 4+ Good+ Knee Strength Knee Manual Muscle Testing bilateral Flexion (S2) 5 Normal Extension (L3) 5 Normal PT-OP-Q Treatments Start: 10/20/20 08:34 Freq: Status: Active Protocol: Document 11/01/20 15:15 AW (Rec: 11/01/20 17:01 AW [email or web address]) Therapeutic Exercises Supine Exercises bert test stretch Supine Exercise Name bert test stretch Side bilateral Comments pt has tall bed at home; HEP piriformis stretch Supine Exercise Name piriformis stretch Side bilateral Reps/Minutes 30 SH x 2 Comments option for HEP bridge Supine Exercise Name bridge Reps/Minutes 3SH x 10 Comments cued PPT and heel drive; HEP pec stretch Supine Exercise Name pec stretch, snow angels Side bilateral Resistance towel rolls Equipment Used tried half foam roll but too aggressive Reps/Minutes 60 sec x 2 Comments on tx table; arms ~120 deg abducted Standing Exercises SLS Standing Exercise Name SLS Side bilateral Equipment Used // prn support Reps/Minutes 5 min Comments cues COG over [employer], core engagement Hip abd, ext Standing Exercise Name added to HEP for LE strength assist mus fac toward balance Side bilateral Resistance TB1 Equipment Used contact rail Reps/Minutes x10 each direction Comments cued decreased trunk lean Gait Training Gait Activity gait with cog task Description gait with cog task Level of Assistance SBA Surface level Distance/Duration 3 min Treatment Focus dual task Comments Pt counted backward by three's starting at 96 and was able to maintain path though gait speed decreased slightly. Neuro Re-Education Treatment Balance Activities gait with head turns Details gait with head turns Surface level Reps/Duration 5 min Comments Pt struggles with head turns, losing her path and slowing down but no LOB today. Clinic only. corner balance Details semi-tandem stance with EO, EC , and head turns Surface level Equipment // bars for prn support Reps/Duration 10 min Comments Improved performance. Left foot forward more challenging PT-OP-T Assessment and Plan Start: 10/20/20 08:34 Freq: Status: Active Protocol: Document 11/01/20 15:15 AW (Rec: 11/01/20 17:01 AW [email or web address]) Physical Therapy Assessment Goals Five Impairment falls Skilled Nursing Goal (LTG) Pt will reduce falls frequency from weekly to monthly or less. LTG Duration 2 months - 12/23/20 Four Impairment self-efficacy Farm Crops Teacher Goal (LTG) Pt will improve ABC Scale score from 42% to 60% or greater to demonstrate reduction in falls risk LTG Duration 2 months - 12/23/20 Three Impairment floor transfers Short Term Goal (STG) Pt will get in and out of her soaking tub without fear of falling. STG Duration 4 weeks - 11/17/20 Skilled Nursing Goal (LTG) Pt will rise from the floor with or without chair support in 10 seconds or less to demonstrate improved strength and self-efficacy. LTG Duration 2 months - 12/23/20 Two Impairment strength Short Term Goal (STG) Pt will complete 5 Time Sit to Stand with no UE support in 12 seconds or less to demonstrate improved strength and reduction in falls risk. STG Duration 4 weeks - 11/17/20 Skilled Nursing Goal (LTG) Pt will improve hip strength to at least 4+/5 all planes for improved stability in gait . LTG Duration 2 months - 12/23/20 One Impairment impaired balance Short Term Goal (STG) Pt will score 120 on mCTSIB to demonstrate improved balance systems integration. STG Duration 4 weeks - 11/17/20 Farm Crops Teacher Goal (LTG) Pt will improve Functional Gait Assessment score from 23/ 30 to 26/30 or greater to match norms for age-matched peers and demonstrate reduction in falls risk. LTG Duration 2 months - 12/23/20 Assessment Summary Assessment HEP review today. Pt is improving in static balance up to level of semi-tandem stance. Gait training with head turns improved with less need for assist. Dual task walking with cognitive challenge results in decreased gait speed but no path deviation. Physical Therapy Plan Frequency and Duration Frequency of Treatment 1-2x/week Duration of Treatment 2 months Plan of Care Start Date 10/20/20 Plan of Care End Date 12/23/20 Therapeutic Interventions Therapeutic Interventions Balance Training,Gait Training ,Home Exercise Program, Neuromuscular Re-education, Patient/Caregiver Education, Self-Care/Home Management, Sensory Integration, Therapeutic Activities, Therapeutic Exercises Next Visit Focus/Plan Next Note Type Treatment Note Next Visit Plan POC: Review static balance and progress with walking tasks as able. Consider dual task, increasing cognitive load.
--- NOTE | 2020-11-01 17:04 | PT.OTN ---
Current Diagnoses Difficulty in walking, not elsewhere classified (11/01/20) Unspecified abnormalities of gait and mobility (11/01/20) Physical Therapy Treatment Note PT-OP-A Visit Information Start: 10/20/20 08:34 Freq: Status: Active Protocol: Document 11/01/20 15:15 AW (Rec: 11/01/20 17:01 AW [email or web address]) Out-Patient Physical Therapy Visit Information Visit Information Visit Type Treatment Note Visit Start Time 14:30 Visit Stop Time 15:15 Total Visit Minutes 45 Visit Number 4 Number of CLINICAL BIOCHEMIST Visits 0 Evaluation Information Evaluation Date 10/20/20 PT-OP-B Current Condition Start: 10/20/20 08:34 Freq: Status: Active Protocol: Document 10/20/20 09:45 AW (Rec: 10/20/20 08:42 AW [email or web address]) Current Condition History of Current Condition Onset Date at least a year Current Complaints imbalance, falls History of Current Condition Amanda reports falling once weekly and having difficulty getting off the floor. She believes there is an inattention component. She is falling mostly at home - inside or out in her garden. She admits her home is cluttered. She occasionally forgets she's wearing reading glasses which causes her to be disoriented. She denies any injurous falls but has many bruises. Her mother at age 94 after a fall. Pt endorses some lightheadedness when she changes position too suddenly. Her BP is typically low. She notes she has occasional tingling in the tops of her feet and anterior shins but that this improved with a 25# weight loss last year. Pt lives alone in [place]. She regularly walks with friends on the [facility] trails. The more I do, the easier it is to do it. Prior Treatments and Tests Saw HIGH SPEED OPERATOR for cognition screen which was WNL. Pt attended due to memory concerns but feels she has effective strategies to compensate. Future Testing and Treatments Planned 110/58 Developmental History Developmental History Pt has CHANCE and uses CPAP for sleep. She had RLS which resolved with weight loss. She has hearing loss and uses bilateral hearing aids. Treatment Goals Patient/Caregiver Goals Pt would like to be able to get on and off her men's bike without falling. She would like to be able to get up from the floor with more ease. SHe would like to be able to use her soaking tub. PT-OP-C Subjective Start: 10/20/20 08:34 Freq: Status: Active Protocol: Document 11/01/20 15:15 AW (Rec: 11/01/20 17:01 AW [email or web address]) OP-PT Subjective Patient Comments Patient Comments Pt is sore after PT but denies pain. No falls in two weeks now. PT-OP-D Balance Start: 10/20/20 08:34 Freq: Status: Active Protocol: Document 10/20/20 09:45 AW (Rec: 10/20/20 17:23 AW [email or web address]) Balance Tests mCTSIB mCTSIB Position 1 30 mCTSIB Position 2 20 - 25 - 20 mCTSIB Position 3 25 - 20 - 18 mCTSIB Position 4 20 - 15 - 16 PT-OP-E Functional Tests Start: 10/20/20 08:34 Freq: Status: Active Protocol: Document 10/20/20 09:45 AW (Rec: 10/20/20 17:28 AW [email or web address]) Functional Tests Five Times Sit to Stand Test Score 16.9 sec Comments 5 full sit <> stands without UE support Other Functional Gait Assessment Name of Test FGA Score Comment see scanned score sheet PT-OP-H Neuro Start: 10/20/20 08:34 Freq: Status: Active Protocol: Document 10/20/20 09:45 AW (Rec: 10/20/20 17:23 AW [email or web address]) Sensation Evaluation Gross Sensation Gross Sensation Left LE Impaired,Right LE Impaired Sensation Description Tingling Comments Summary Comments Pt endorses occasional tingling BLE from tops of feet to anterior shins. She states this has improved since she lost 25# last year. Coordination Evaluation Comments Coordination Comments All coordination testing ( finger to nose EO and EC, rapid pronation/supination, and foot tapping) WNL. Deep Tendon Reflex & Clonus Assessment Deep Tendon Reflex Bilateral Patellar Deep Tendon Reflex 2+ Normal Bilateral Bicep Deep Tendon Reflex 2+ Normal Vital Signs Blood Pressure Sitting Blood Pressure (90/60-120/80 mmHg) 110/58 L Blood Pressure Source Manual Cuff,Right Upper Extremity PT-OP-K Range of Motion Start: 10/20/20 08:34 Freq: Status: Active Protocol: Document 10/20/20 09:45 AW (Rec: 10/20/20 17:25 AW [email or web address]) Hip Goniometric Range of Motion Hip bilateral Hip ROM WFL Yes Testing Position Supine Comments All hip ROM WNL PT-OP-M Strength Start: 10/20/20 08:34 Freq: Status: Active Protocol: Document 10/20/20 09:45 AW (Rec: 10/20/20 17:25 AW [email or web address]) Hip Strength Hip Manual Muscle Testing bilateral Flexion (L2) 4 Good Extension (S1) 4 Good Abduction 4 Good Adduction 4+ Good+ External Rotation 4+ Good+ Internal Rotation 4+ Good+ Knee Strength Knee Manual Muscle Testing bilateral Flexion (S2) 5 Normal Extension (L3) 5 Normal PT-OP-Q Treatments Start: 10/20/20 08:34 Freq: Status: Active Protocol: Document 11/01/20 15:15 AW (Rec: 11/01/20 17:01 AW [email or web address]) Therapeutic Exercises Supine Exercises bert test stretch Supine Exercise Name bert test stretch Side bilateral Comments pt has tall bed at home; HEP piriformis stretch Supine Exercise Name piriformis stretch Side bilateral Reps/Minutes 30 SH x 2 Comments option for HEP bridge Supine Exercise Name bridge Reps/Minutes 3SH x 10 Comments cued PPT and heel drive; HEP pec stretch Supine Exercise Name pec stretch, snow angels Side bilateral Resistance towel rolls Equipment Used tried half foam roll but too aggressive Reps/Minutes 60 sec x 2 Comments on tx table; arms ~120 deg abducted Standing Exercises step up Standing Exercise Name step up Side bilateral Equipment Used 6 step Reps/Minutes 10 x 2 Comments no UE support; for strength and balance SLS Standing Exercise Name SLS Side bilateral Equipment Used // prn support Reps/Minutes 5 min Comments cues COG over [employer], core engagement Hip abd, ext Standing Exercise Name added resistance Side bilateral Resistance TB1 Equipment Used contact rail Reps/Minutes x10 each direction Comments cued decreased trunk lean Gait Training Gait Activity gait with cog task Description gait with cog task Level of Assistance SBA Surface level Distance/Duration 3 min Treatment Focus dual task Comments Pt counted backward by three's starting at 96 and was able to maintain path though gait speed decreased slightly. Neuro Re-Education Treatment Balance Activities gait with head turns Details gait with head turns Surface level Reps/Duration 5 min Comments Pt struggles with head turns, losing her path and slowing down but no LOB today. Clinic only. corner balance Details semi-tandem stance with EO, EC , and head turns Surface level Equipment // bars for prn support Reps/Duration 10 min Comments Improved performance. Left foot forward more challenging PT-OP-T Assessment and Plan Start: 10/20/20 08:34 Freq: Status: Active Protocol: Document 11/01/20 15:15 AW (Rec: 11/01/20 17:01 AW [email or web address]) Physical Therapy Assessment Goals Five Impairment falls Skilled Nursing Goal (LTG) Pt will reduce falls frequency from weekly to monthly or less. LTG Duration 2 months - 12/23/20 Four Impairment self-efficacy Skilled Nursing Goal (LTG) Pt will improve ABC Scale score from 42% to 60% or greater to demonstrate reduction in falls risk LTG Duration 2 months - 12/23/20 Three Impairment floor transfers Short Term Goal (STG) Pt will get in and out of her soaking tub without fear of falling. STG Duration 4 weeks - 11/17/20 Skilled Nursing Goal (LTG) Pt will rise from the floor with or without chair support in 10 seconds or less to demonstrate improved strength and self-efficacy. LTG Duration 2 months - 12/23/20 Two Impairment strength Short Term Goal (STG) Pt will complete 5 Time Sit to Stand with no UE support in 12 seconds or less to demonstrate improved strength and reduction in falls risk. STG Duration 4 weeks - 11/17/20 Human Resources Trainee Goal (LTG) Pt will improve hip strength to at least 4+/5 all planes for improved stability in gait . LTG Duration 2 months - 12/23/20 One Impairment impaired balance Short Term Goal (STG) Pt will score 120 on mCTSIB to demonstrate improved balance systems integration. STG Duration 4 weeks - 11/17/20 Skilled Nursing Goal (LTG) Pt will improve Functional Gait Assessment score from 23/ 30 to 26/30 or greater to match norms for age-matched peers and demonstrate reduction in falls risk. LTG Duration 2 months - 12/23/20 Assessment Summary Assessment HEP review today. Pt is improving in static balance up to level of semi-tandem stance. Gait training with head turns improved with less need for assist. Dual task walking with cognitive challenge results in decreased gait speed but no path deviation. Physical Therapy Plan Frequency and Duration Frequency of Treatment 1-2x/week Duration of Treatment 2 months Plan of Care Start Date 10/20/20 Plan of Care End Date 12/23/20 Therapeutic Interventions Therapeutic Interventions Balance Training,Gait Training ,Home Exercise Program, Neuromuscular Re-education, Patient/Caregiver Education, Self-Care/Home Management, Sensory Integration, Therapeutic Activities, Therapeutic Exercises Next Visit Focus/Plan Next Note Type Treatment Note Next Visit Plan POC: Review static balance and progress with walking tasks as able. Consider dual task, increasing cognitive load.
--- NOTE | 2020-11-03 12:01 | PT.OTN ---
Current Diagnoses Difficulty in walking, not elsewhere classified (11/03/20) Unspecified abnormalities of gait and mobility (11/03/20) Physical Therapy Treatment Note PT-OP-A Visit Information Start: 10/20/20 08:34 Freq: Status: Active Protocol: Document 11/03/20 09:43 AW (Rec: 11/03/20 09:44 AW [id number]) Out-Patient Physical Therapy Visit Information Visit Information Visit Type Treatment Note Visit Start Time 09:00 Visit Stop Time 09:43 Total Visit Minutes 43 Visit Number 5 Number of RESERVOIR ENGINEERING CONSULTANT Visits 0 Evaluation Information Evaluation Date 10/20/20 PT-OP-B Current Condition Start: 10/20/20 08:34 Freq: Status: Active Protocol: Document 10/20/20 09:45 AW (Rec: 10/20/20 08:42 AW [email or web address]) Current Condition History of Current Condition Onset Date at least a year Current Complaints imbalance, falls History of Current Condition Amanda reports falling once weekly and having difficulty getting off the floor. She believes there is an inattention component. She is falling mostly at home - inside or out in her garden. She admits her home is cluttered. She occasionally forgets she's wearing reading glasses which causes her to be disoriented. She denies any injurous falls but has many bruises. Her mother at age 94 after a fall. Pt endorses some lightheadedness when she changes position too suddenly. Her BP is typically low. She notes she has occasional tingling in the tops of her feet and anterior shins but that this improved with a 25# weight loss last year. Pt lives alone in [place]. She regularly walks with friends on the [facility] trails. The more I do, the easier it is to do it. Prior Treatments and Tests Saw JAVASCRIPT WEB DEVELOPER for cognition screen which was WNL. Pt attended due to memory concerns but feels she has effective strategies to compensate. Future Testing and Treatments Planned 110/58 Developmental History Developmental History Pt has CHANCE and uses CPAP for sleep. She had RLS which resolved with weight loss. She has hearing loss and uses bilateral hearing aids. Treatment Goals Patient/Caregiver Goals Pt would like to be able to get on and off her men's bike without falling. She would like to be able to get up from the floor with more ease. SHe would like to be able to use her soaking tub. PT-OP-C Subjective Start: 10/20/20 08:34 Freq: Status: Active Protocol: Document 11/03/20 09:43 AW (Rec: 11/03/20 09:44 AW [id number]) OP-PT Subjective Patient Comments Patient Comments I feel like I'm progressing. I practice standing on one foot whenever I can. PT-OP-D Balance Start: 10/20/20 08:34 Freq: Status: Active Protocol: Document 10/20/20 09:45 AW (Rec: 10/20/20 17:23 AW [email or web address]) Balance Tests mCTSIB mCTSIB Position 1 30 mCTSIB Position 2 20 - 25 - 20 mCTSIB Position 3 25 - 20 - 18 mCTSIB Position 4 20 - 15 - 16 PT-OP-E Functional Tests Start: 10/20/20 08:34 Freq: Status: Active Protocol: Document 10/20/20 09:45 AW (Rec: 10/20/20 17:28 AW [email or web address]) Functional Tests Five Times Sit to Stand Test Score 16.9 sec Comments 5 full sit <> stands without UE support Other Functional Gait Assessment Name of Test FGA Score Comment see scanned score sheet PT-OP-H Neuro Start: 10/20/20 08:34 Freq: Status: Active Protocol: Document 10/20/20 09:45 AW (Rec: 10/20/20 17:23 AW [email or web address]) Sensation Evaluation Gross Sensation Gross Sensation Left LE Impaired,Right LE Impaired Sensation Description Tingling Comments Summary Comments Pt endorses occasional tingling BLE from tops of feet to anterior shins. She states this has improved since she lost 25# last year. Coordination Evaluation Comments Coordination Comments All coordination testing ( finger to nose EO and EC, rapid pronation/supination, and foot tapping) WNL. Deep Tendon Reflex & Clonus Assessment Deep Tendon Reflex Bilateral Patellar Deep Tendon Reflex 2+ Normal Bilateral Bicep Deep Tendon Reflex 2+ Normal Vital Signs Blood Pressure Sitting Blood Pressure (90/60-120/80 mmHg) 110/58 L Blood Pressure Source Manual Cuff,Right Upper Extremity PT-OP-K Range of Motion Start: 10/20/20 08:34 Freq: Status: Active Protocol: Document 10/20/20 09:45 AW (Rec: 10/20/20 17:25 AW [email or web address]) Hip Goniometric Range of Motion Hip bilateral Hip ROM WFL Yes Testing Position Supine Comments All hip ROM WNL PT-OP-M Strength Start: 10/20/20 08:34 Freq: Status: Active Protocol: Document 10/20/20 09:45 AW (Rec: 10/20/20 17:25 AW [email or web address]) Hip Strength Hip Manual Muscle Testing bilateral Flexion (L2) 4 Good Extension (S1) 4 Good Abduction 4 Good Adduction 4+ Good+ External Rotation 4+ Good+ Internal Rotation 4+ Good+ Knee Strength Knee Manual Muscle Testing bilateral Flexion (S2) 5 Normal Extension (L3) 5 Normal PT-OP-Q Treatments Start: 10/20/20 08:34 Freq: Status: Active Protocol: Document 11/03/20 09:43 AW (Rec: 11/03/20 09:44 AW [id number]) Therapeutic Exercises Supine Exercises bert test stretch Supine Exercise Name bert test stretch Side bilateral Comments works at home on bed piriformis stretch Supine Exercise Name piriformis stretch Side bilateral Reps/Minutes 30 SH x 2 Comments option for HEP bridge Supine Exercise Name bridge Reps/Minutes 10SH x 8 Comments green ball between knees for alignment pec stretch Supine Exercise Name discussed but did not perform. pt using rolled up rug at home Sidelying Exercises clamshell Sidelying Exercise Name clamshell Side bilateral Resistance AROM Reps/Minutes 10x1; 15 x 1 Comments good form; min cues; fatigue ~ 15 Standing Exercises step up Standing Exercise Name step up - fwd only Side bilateral Equipment Used 8 step Reps/Minutes 10 x 2 Comments cued weight shift; glute recruitment Neuro Re-Education Treatment Balance Activities corner balance Details semi tandem and stride stance EO, EC, head turns Surface level Equipment SBA>CGA Reps/Duration 12 min Comments Started with AP weight shifts in stride stance and added arm swing. Improving stability. PT-OP-T Assessment and Plan Start: 10/20/20 08:34 Freq: Status: Active Protocol: Document 11/03/20 09:43 AW (Rec: 11/03/20 12:01 AW [id number]) Physical Therapy Assessment Goals Five Impairment falls [facility] Goal (LTG) Pt will reduce falls frequency from weekly to monthly or less. LTG Duration 2 months - 12/23/20 Four Impairment self-efficacy Housekeeping Worker Goal (LTG) Pt will improve ABC Scale score from 42% to 60% or greater to demonstrate reduction in falls risk LTG Duration 2 months - 12/23/20 Three Impairment floor transfers Short Term Goal (STG) Pt will get in and out of her soaking tub without fear of falling. STG Duration 4 weeks - 11/17/20 [facility] Goal (LTG) Pt will rise from the floor with or without chair support in 10 seconds or less to demonstrate improved strength and self-efficacy. LTG Duration 2 months - 12/23/20 Two Impairment strength Short Term Goal (STG) Pt will complete 5 Time Sit to Stand with no UE support in 12 seconds or less to demonstrate improved strength and reduction in falls risk. STG Duration 4 weeks - 11/17/20 Housekeeping Worker Goal (LTG) Pt will improve hip strength to at least 4+/5 all planes for improved stability in gait . LTG Duration 2 months - 12/23/20 One Impairment impaired balance Short Term Goal (STG) Pt will score 120 on mCTSIB to demonstrate improved balance systems integration. STG Duration 4 weeks - 11/17/20 Housekeeping Worker Goal (LTG) Pt will improve Functional Gait Assessment score from 23/ 30 to 26/30 or greater to match norms for age-matched peers and demonstrate reduction in falls risk. LTG Duration 2 months - 12/23/20 Assessment Summary Assessment Pt improving in strength and stability as evidenced by increased step height for step ups, improved stability with head turns in semi tandem and stride stance. Physical Therapy Plan Frequency and Duration Frequency of Treatment 1-2x/week Duration of Treatment 2 months Plan of Care Start Date 10/20/20 Plan of Care End Date 12/23/20 Therapeutic Interventions Therapeutic Interventions Balance Training,Gait Training ,Home Exercise Program, Neuromuscular Re-education, Patient/Caregiver Education, Self-Care/Home Management, Sensory Integration, Therapeutic Activities, Therapeutic Exercises Next Visit Focus/Plan Next Note Type Treatment Note Next Visit Plan POC: Review static balance and progress with walking tasks as able. Consider dual task, increasing cognitive load.
--- NOTE | 2020-11-10 16:13 | PT.OTN ---
Addendum entered and electronically signed by Cris No PT 11/10/20 17:04: Next tx: initiate floor transfer training, tall kneeling balance Original Note: Current Diagnoses Difficulty in walking, not elsewhere classified (11/10/20) Unspecified abnormalities of gait and mobility (11/10/20) Physical Therapy Treatment Note PT-OP-A Visit Information Start: 10/20/20 08:34 Freq: Status: Active Protocol: Document 11/10/20 16:00 AW (Rec: 11/10/20 16:01 AW [id number]) Out-Patient Physical Therapy Visit Information Visit Information Visit Type Treatment Note Visit Start Time 15:15 Visit Stop Time 16:00 Total Visit Minutes 45 Visit Number 6 Number of LAMP TESTER AND INSPECTOR Visits 0 Evaluation Information Evaluation Date 10/20/20 PT-OP-B Current Condition Start: 10/20/20 08:34 Freq: Status: Active Protocol: Document 10/20/20 09:45 AW (Rec: 10/20/20 08:42 AW [email or web address]) Current Condition History of Current Condition Onset Date at least a year Current Complaints imbalance, falls History of Current Condition Amanda reports falling once weekly and having difficulty getting off the floor. She believes there is an inattention component. She is falling mostly at home - inside or out in her garden. She admits her home is cluttered. She occasionally forgets she's wearing reading glasses which causes her to be disoriented. She denies any injurous falls but has many bruises. Her mother at age 94 after a fall. Pt endorses some lightheadedness when she changes position too suddenly. Her BP is typically low. She notes she has occasional tingling in the tops of her feet and anterior shins but that this improved with a 25# weight loss last year. Pt lives alone in [place]. She regularly walks with friends on the [facility] trails. The more I do, the easier it is to do it. Prior Treatments and Tests Saw MARKETING SERVICES REP for cognition screen which was WNL. Pt attended due to memory concerns but feels she has effective strategies to compensate. Future Testing and Treatments Planned 110/58 Developmental History Developmental History Pt has CHANCE and uses CPAP for sleep. She had RLS which resolved with weight loss. She has hearing loss and uses bilateral hearing aids. Treatment Goals Patient/Caregiver Goals Pt would like to be able to get on and off her men's bike without falling. She would like to be able to get up from the floor with more ease. SHe would like to be able to use her soaking tub. PT-OP-C Subjective Start: 10/20/20 08:34 Freq: Status: Active Protocol: Document 11/10/20 16:00 AW (Rec: 11/10/20 16:01 AW [id number]) OP-PT Subjective Patient Comments Patient Comments I picked dahlias with my daughter yesterday and she noticed how well I could bend over and turn my head without losing balance. PT-OP-D Balance Start: 10/20/20 08:34 Freq: Status: Active Protocol: Document 10/20/20 09:45 AW (Rec: 10/20/20 17:23 AW [email or web address]) Balance Tests mCTSIB mCTSIB Position 1 30 mCTSIB Position 2 20 - 25 - 20 mCTSIB Position 3 25 - 20 - 18 mCTSIB Position 4 20 - 15 - 16 PT-OP-E Functional Tests Start: 10/20/20 08:34 Freq: Status: Active Protocol: Document 10/20/20 09:45 AW (Rec: 10/20/20 17:28 AW [email or web address]) Functional Tests Five Times Sit to Stand Test Score 16.9 sec Comments 5 full sit <> stands without UE support Other Functional Gait Assessment Name of Test FGA Score 2330 Comment see scanned score sheet PT-OP-H Neuro Start: 10/20/20 08:34 Freq: Status: Active Protocol: Document 10/20/20 09:45 AW (Rec: 10/20/20 17:23 AW [email or web address]) Sensation Evaluation Gross Sensation Gross Sensation Left LE Impaired,Right LE Impaired Sensation Description Tingling Comments Summary Comments Pt endorses occasional tingling BLE from tops of feet to anterior shins. She states this has improved since she lost 25# last year. Coordination Evaluation Comments Coordination Comments All coordination testing ( finger to nose EO and EC, rapid pronation/supination, and foot tapping) WNL. Deep Tendon Reflex & Clonus Assessment Deep Tendon Reflex Bilateral Patellar Deep Tendon Reflex 2+ Normal Bilateral Bicep Deep Tendon Reflex 2+ Normal Vital Signs Blood Pressure Sitting Blood Pressure (90/60-120/80 mmHg) 110/58 L Blood Pressure Source Manual Cuff,Right Upper Extremity PT-OP-K Range of Motion Start: 10/20/20 08:34 Freq: Status: Active Protocol: Document 10/20/20 09:45 AW (Rec: 10/20/20 17:25 AW [email or web address]) Hip Goniometric Range of Motion Hip bilateral Hip ROM WFL Yes Testing Position Supine Comments All hip ROM WNL PT-OP-M Strength Start: 10/20/20 08:34 Freq: Status: Active Protocol: Document 10/20/20 09:45 AW (Rec: 10/20/20 17:25 AW [email or web address]) Hip Strength Hip Manual Muscle Testing bilateral Flexion (L2) 4 Good Extension (S1) 4 Good Abduction 4 Good Adduction 4+ Good+ External Rotation 4+ Good+ Internal Rotation 4+ Good+ Knee Strength Knee Manual Muscle Testing bilateral Flexion (S2) 5 Normal Extension (L3) 5 Normal PT-OP-Q Treatments Start: 10/20/20 08:34 Freq: Status: Active Protocol: Document 11/10/20 16:00 AW (Rec: 11/10/20 16:01 AW [id number]) Therapeutic Exercises Supine Exercises HS stretch Supine Exercise Name HS stretch Side bilateral Equipment Used strap Reps/Minutes w/ crossover for lateral hip stretch piriformis stretch Supine Exercise Name piriformis stretch Side bilateral Reps/Minutes 30 SH x 2 Comments option for HEP Sidelying Exercises clamshell Sidelying Exercise Name clamshell Side bilateral Resistance AROM Reps/Minutes 15x2 Comments reduced cues for set up; HEP Sitting Exercises HS stretch Sitting Exercise Name HS stretch Side bilateral Reps/Minutes 30SH x 4 Comments option for HEP Standing Exercises step up Standing Exercise Name step up - fwd only Side bilateral Equipment Used 8 step Reps/Minutes 10 x 2 Comments no UE support; improving stability Neuro Re-Education Treatment Balance Activities rocker board Details rocker board Surface A/P and medial/lateral Reps/Duration 2 min each orientation Comments CGA for set up and then no further assist needed tandem walking Details tandem walking Surface firm Equipment rail for prn support Reps/Duration 20' 4 laps Comments Pt able to walk 10 steps without UE support corner balance Details semi tandem and stride stance EO, EC, head turns Surface level Equipment SBA Reps/Duration 12 min Comments Started with AP weight shifts in stride stance and added arm swing. Improving stability. Self-Care/Home Management Treatment Education Patient Education Home Exercise Program Other Education Added clamshell and semi- tandem/tandem stance with chair support for home program PT-OP-T Assessment and Plan Start: 10/20/20 08:34 Freq: Status: Active Protocol: Document 11/10/20 16:00 AW (Rec: 11/10/20 16:13 AW [id number]) Physical Therapy Assessment Goals Five Impairment falls [facility] Goal (LTG) Pt will reduce falls frequency from weekly to monthly or less. LTG Duration 2 months - 12/23/20 Four Impairment self-efficacy Ager Tender Goal (LTG) Pt will improve ABC Scale score from 42% to 60% or greater to demonstrate reduction in falls risk LTG Duration 2 months - 12/23/20 Three Impairment floor transfers Short Term Goal (STG) Pt will get in and out of her soaking tub without fear of falling. STG Duration 4 weeks - 11/17/20 [facility] Goal (LTG) Pt will rise from the floor with or without chair support in 10 seconds or less to demonstrate improved strength and self-efficacy. LTG Duration 2 months - 12/23/20 Two Impairment strength Short Term Goal (STG) Pt will complete 5 Time Sit to Stand with no UE support in 12 seconds or less to demonstrate improved strength and reduction in falls risk. STG Duration 4 weeks - 11/17/20 [facility] Goal (LTG) Pt will improve hip strength to at least 4+/5 all planes for improved stability in gait . LTG Duration 2 months - 12/23/20 One Impairment impaired balance Short Term Goal (STG) Pt will score 120 on mCTSIB to demonstrate improved balance systems integration. STG Duration 4 weeks - 11/17/20 [facility] Goal (LTG) Pt will improve Functional Gait Assessment score from 23/ 30 to 26/30 or greater to match norms for age-matched peers and demonstrate reduction in falls risk. LTG Duration 2 months - 12/23/20 Assessment Summary Assessment Pt requiring less assist for stability in challenging balance activities today. She reports overall sense of improved stability and confidence. Will continue to address dynamic balance deficits. Physical Therapy Plan Frequency and Duration Frequency of Treatment 1-2x/week Duration of Treatment 2 months Plan of Care Start Date 10/20/20 Plan of Care End Date 12/23/20 Therapeutic Interventions Therapeutic Interventions Balance Training,Gait Training ,Home Exercise Program, Neuromuscular Re-education, Patient/Caregiver Education, Self-Care/Home Management, Sensory Integration, Therapeutic Activities, Therapeutic Exercises Next Visit Focus/Plan Next Note Type Treatment Note Next Visit Plan Add perturbations for static and dynamic balance. Assess STG. Consider dual task, increasing cognitive load.
--- NOTE | 2020-11-15 13:46 | PT.OTN ---
Current Diagnoses Difficulty in walking, not elsewhere classified (11/15/20) Unspecified abnormalities of gait and mobility (11/15/20) Physical Therapy Treatment Note PT-OP-A Visit Information Start: 10/20/20 08:34 Freq: Status: Active Protocol: Document 11/15/20 13:06 SP (Rec: 11/15/20 13:50 SP [id number]) Out-Patient Physical Therapy Visit Information Visit Information Visit Type Treatment Note Visit Note POC updated required next tx . Visit Start Time 13:06 Visit Stop Time 13:46 Total Visit Minutes 40 Visit Number 7 Number of WINDOWS 7 DEPLOYMENT LEAD Visits 1 Evaluation Information Evaluation Date 10/20/20 PT-OP-B Current Condition Start: 10/20/20 08:34 Freq: Status: Active Protocol: Document 10/20/20 09:45 AW (Rec: 10/20/20 08:42 AW [email or web address]) Current Condition History of Current Condition Onset Date at least a year Current Complaints imbalance, falls History of Current Condition Amanda reports falling once weekly and having difficulty getting off the floor. She believes there is an inattention component. She is falling mostly at home - inside or out in her garden. She admits her home is cluttered. She occasionally forgets she's wearing reading glasses which causes her to be disoriented. She denies any injurous falls but has many bruises. Her mother at age 94 after a fall. Pt endorses some lightheadedness when she changes position too suddenly. Her BP is typically low. She notes she has occasional tingling in the tops of her feet and anterior shins but that this improved with a 25# weight loss last year. Pt lives alone in [place]. She regularly walks with friends on the [employer]. The more I do, the easier it is to do it. Prior Treatments and Tests Saw THERMODYNAMIC PHYSICIST for cognition screen which was WNL. Pt attended due to memory concerns but feels she has effective strategies to compensate. Future Testing and Treatments Planned 110/58 Developmental History Developmental History Pt has CHANCE and uses CPAP for sleep. She had RLS which resolved with weight loss. She has hearing loss and uses bilateral hearing aids. Treatment Goals Patient/Caregiver Goals Pt would like to be able to get on and off her men's bike without falling. She would like to be able to get up from the floor with more ease. SHe would like to be able to use her soaking tub. PT-OP-C Subjective Start: 10/20/20 08:34 Freq: Status: Active Protocol: Document 11/15/20 13:06 SP (Rec: 11/15/20 13:50 SP [id number]) OP-PT Subjective Patient Comments Patient Comments Pt states her B LS/SI area was hurting after Fri performance of sidelying clamshell. She tried to perform on Sat but realized was to uncomfortable to decided to stop and let PT know. PT-OP-D Balance Start: 10/20/20 08:34 Freq: Status: Active Protocol: Document 10/20/20 09:45 AW (Rec: 10/20/20 17:23 AW [email or web address]) Balance Tests mCTSIB mCTSIB Position 1 30 mCTSIB Position 2 20 - 25 - 20 mCTSIB Position 3 25 - 20 - 18 mCTSIB Position 4 20 - 15 - 16 PT-OP-E Functional Tests Start: 10/20/20 08:34 Freq: Status: Active Protocol: Document 10/20/20 09:45 AW (Rec: 10/20/20 17:28 AW [email or web address]) Functional Tests Five Times Sit to Stand Test Score 16.9 sec Comments 5 full sit <> stands without UE support Other Functional Gait Assessment Name of Test FGA Score Comment see scanned score sheet PT-OP-H Neuro Start: 10/20/20 08:34 Freq: Status: Active Protocol: Document 10/20/20 09:45 AW (Rec: 10/20/20 17:23 AW [email or web address]) Sensation Evaluation Gross Sensation Gross Sensation Left LE Impaired,Right LE Impaired Sensation Description Tingling Comments Summary Comments Pt endorses occasional tingling BLE from tops of feet to anterior shins. She states this has improved since she lost 25# last year. Coordination Evaluation Comments Coordination Comments All coordination testing ( finger to nose EO and EC, rapid pronation/supination, and foot tapping) WNL. Deep Tendon Reflex & Clonus Assessment Deep Tendon Reflex Bilateral Patellar Deep Tendon Reflex 2+ Normal Bilateral Bicep Deep Tendon Reflex 2+ Normal Vital Signs Blood Pressure Sitting Blood Pressure (90/60-120/80 mmHg) 110/58 L Blood Pressure Source Manual Cuff,Right Upper Extremity PT-OP-K Range of Motion Start: 10/20/20 08:34 Freq: Status: Active Protocol: Document 10/20/20 09:45 AW (Rec: 10/20/20 17:25 AW [email or web address]) Hip Goniometric Range of Motion Hip bilateral Hip ROM WFL Yes Testing Position Supine Comments All hip ROM WNL PT-OP-M Strength Start: 10/20/20 08:34 Freq: Status: Active Protocol: Document 10/20/20 09:45 AW (Rec: 10/20/20 17:25 AW [email or web address]) Hip Strength Hip Manual Muscle Testing bilateral Flexion (L2) 4 Good Extension (S1) 4 Good Abduction 4 Good Adduction 4+ Good+ External Rotation 4+ Good+ Internal Rotation 4+ Good+ Knee Strength Knee Manual Muscle Testing bilateral Flexion (S2) 5 Normal Extension (L3) 5 Normal PT-OP-Q Treatments Start: 10/20/20 08:34 Freq: Status: Active Protocol: Document 11/15/20 13:06 SP (Rec: 11/15/20 13:50 SP [id number]) Therapeutic Exercises Supine Exercises SKTC Side bilateral Reps/Minutes 60 x2 Comments good feedback LB releases felt piriformis stretch Supine Exercise Name piriformis stretch- IR Side bilateral Reps/Minutes 30 SH x 2 Comments reviewed HEP Sidelying Exercises clamshell Sidelying Exercise Name clamshell- review HEP Side bilateral Resistance AROM Reps/Minutes x10 Comments reduced cues for stacked set up and TA fac Sitting Exercises HS stretch Sitting Exercise Name HS stretch Side bilateral Reps/Minutes 30SH x 4 Comments reviewed HEP pirformis stretch Sitting Exercise Name reviewed HEP Side bilateral Reps/Minutes 30 x2 Comments good feedback stretch post activity Therapeutic Activity Therapeutic Activity on/ off floor Name stand<>1/2 kneel<> tall kneel< > quadruped<> side sitting<> supine Reps/Minutes x2 going to R and L Comments between tables- contact 1-2 ascend/descend. Next tx on/ off floor without table/ chair assist. Manual Therapy Treatment Soft Tissue Mobilization STMs Body Location B paraspinals to iliac crest, B posterior glut med at iliac crest, pirif Mobilization Type Myofascial Release,Rolling, Strumming,Sustained Pressure Intensity/Depth Moderate Body Position Prone Comments good feedback decrease tension Neuro Re-Education Treatment Balance Activities rocker board Details rocker board: wt shift and nudges Surface A/P and medial/lateral Reps/Duration 2 min each orientation Comments CGA for set up and then no further assist needed PT-OP-T Assessment and Plan Start: 10/20/20 08:34 Freq: Status: Active Protocol: Document 11/15/20 13:06 SP (Rec: 11/15/20 13:50 SP [id number]) Physical Therapy Assessment Goals Five Impairment falls Fci Goal (LTG) Pt will reduce falls frequency from weekly to monthly or less. LTG Duration 2 months - 12/23/20 Four Impairment self-efficacy Snag Grinder Goal (LTG) Pt will improve ABC Scale score from 42% to 60% or greater to demonstrate reduction in falls risk LTG Duration 2 months - 12/23/20 Three Impairment floor transfers Short Term Goal (STG) Pt will get in and out of her soaking tub without fear of falling. 11/15/20: progressing: pt states still not confident getting in/out soaking tub without fear of falling. STG Duration 4 weeks - 11/17/20 Fci Goal (LTG) Pt will rise from the floor with or without chair support in 10 seconds or less to demonstrate improved strength and self-efficacy. 11/15/20: progressing: pt able lower/ rise from floor with support of 2 hands on side mat tables and floor, not timed. LTG Duration 2 months - 12/23/20 Two Impairment strength Short Term Goal (STG) Pt will complete 5 Time Sit to Stand with no UE support in 12 seconds or less to demonstrate improved strength and reduction in falls risk. STG Duration 4 weeks - 11/17/20 Fci Goal (LTG) Pt will improve hip strength to at least 4+/5 all planes for improved stability in gait . LTG Duration 2 months - 12/23/20 One Impairment impaired balance Short Term Goal (STG) Pt will score 120 on mCTSIB to demonstrate improved balance systems integration. STG Duration 4 weeks - 11/17/20 Snag Grinder Goal (LTG) Pt will improve Functional Gait Assessment score from 23/ 30 to 26/30 or greater to match norms for age-matched peers and demonstrate reduction in falls risk. LTG Duration 2 months - 12/23/20 Assessment Summary Assessment Pt responded well to manual and stretching review begininning of tx with noted decrease LS/ SI discomfort by end of tx. No pain during clamshell performance this tx. Pt able to complete on/off floor using BUE on nearby mat table, untimed. She is able to tall kneel without pain to be able to perform exercises on yoga mat at home. Pt states feels more at ease to be able to work on at home as well. Physical Therapy Plan Frequency and Duration Frequency of Treatment 1-2x/week Duration of Treatment 2 months Plan of Care Start Date 10/20/20 Plan of Care End Date 12/23/20 Therapeutic Interventions Therapeutic Interventions Balance Training,Gait Training ,Home Exercise Program, Neuromuscular Re-education, Patient/Caregiver Education, Self-Care/Home Management, Sensory Integration, Therapeutic Activities, Therapeutic Exercises Next Visit Focus/Plan Next Note Type Treatment Note Next Visit Plan Progress on/off floor 1 UE assist then no use of chair and timed for assessment LTG # 4. Assess STS for time for STG # 2. POC: Add perturbations for static and dynamic balance. Consider dual task, increasing cognitive load.
--- NOTE | 2020-11-17 13:07 | PT.OTN ---
Current Diagnoses Difficulty in walking, not elsewhere classified (11/17/20) Unspecified abnormalities of gait and mobility (11/17/20) Physical Therapy Treatment Note PT-OP-A Visit Information Start: 10/20/20 08:34 Freq: Status: Active Protocol: Document 11/17/20 09:44 AW (Rec: 11/17/20 09:46 AW [id number]) Out-Patient Physical Therapy Visit Information Visit Information Visit Type Treatment Note Visit Start Time 09:00 Visit Stop Time 09:44 Total Visit Minutes 44 Visit Number 8 Number of ANTICHECKING IRON WORKER Visits 0 Evaluation Information Evaluation Date 10/20/20 PT-OP-B Current Condition Start: 10/20/20 08:34 Freq: Status: Active Protocol: Document 10/20/20 09:45 AW (Rec: 10/20/20 08:42 AW [email or web address]) Current Condition History of Current Condition Onset Date at least a year Current Complaints imbalance, falls History of Current Condition Amanda reports falling once weekly and having difficulty getting off the floor. She believes there is an inattention component. She is falling mostly at home - inside or out in her garden. She admits her home is cluttered. She occasionally forgets she's wearing reading glasses which causes her to be disoriented. She denies any injurous falls but has many bruises. Her mother at age 94 after a fall. Pt endorses some lightheadedness when she changes position too suddenly. Her BP is typically low. She notes she has occasional tingling in the tops of her feet and anterior shins but that this improved with a 25# weight loss last year. Pt lives alone in [place]. She regularly walks with friends on the [facility] trails. The more I do, the easier it is to do it. Prior Treatments and Tests Saw GRASS CUTTER for cognition screen which was WNL. Pt attended due to memory concerns but feels she has effective strategies to compensate. Future Testing and Treatments Planned 110/58 Developmental History Developmental History Pt has CHANCE and uses CPAP for sleep. She had RLS which resolved with weight loss. She has hearing loss and uses bilateral hearing aids. Treatment Goals Patient/Caregiver Goals Pt would like to be able to get on and off her men's bike without falling. She would like to be able to get up from the floor with more ease. SHe would like to be able to use her soaking tub. PT-OP-C Subjective Start: 10/20/20 08:34 Freq: Status: Active Protocol: Document 11/17/20 09:44 AW (Rec: 11/17/20 09:46 AW [id number]) OP-PT Subjective Patient Comments Patient Comments Pt continues to have LBP which is 4/10 at worst but she thinks it is related to increased activity. PT-OP-D Balance Start: 10/20/20 08:34 Freq: Status: Active Protocol: Document 10/20/20 09:45 AW (Rec: 10/20/20 17:23 AW [email or web address]) Balance Tests mCTSIB mCTSIB Position 1 30 mCTSIB Position 2 20 - 25 - 20 mCTSIB Position 3 25 - 20 - 18 mCTSIB Position 4 20 - 15 - 16 PT-OP-E Functional Tests Start: 10/20/20 08:34 Freq: Status: Active Protocol: Document 10/20/20 09:45 AW (Rec: 10/20/20 17:28 AW [email or web address]) Functional Tests Five Times Sit to Stand Test Score 16.9 sec Comments 5 full sit <> stands without UE support Other Functional Gait Assessment Name of Test FGA Score /30 Comment see scanned score sheet PT-OP-H Neuro Start: 10/20/20 08:34 Freq: Status: Active Protocol: Document 10/20/20 09:45 AW (Rec: 10/20/20 17:23 AW [email or web address]) Sensation Evaluation Gross Sensation Gross Sensation Left LE Impaired,Right LE Impaired Sensation Description Tingling Comments Summary Comments Pt endorses occasional tingling BLE from tops of feet to anterior shins. She states this has improved since she lost 25# last year. Coordination Evaluation Comments Coordination Comments All coordination testing ( finger to nose EO and EC, rapid pronation/supination, and foot tapping) WNL. Deep Tendon Reflex & Clonus Assessment Deep Tendon Reflex Bilateral Patellar Deep Tendon Reflex 2+ Normal Bilateral Bicep Deep Tendon Reflex 2+ Normal Vital Signs Blood Pressure Sitting Blood Pressure (90/60-120/80 mmHg) 110/58 L Blood Pressure Source Manual Cuff,Right Upper Extremity PT-OP-K Range of Motion Start: 10/20/20 08:34 Freq: Status: Active Protocol: Document 10/20/20 09:45 AW (Rec: 10/20/20 17:25 AW [email or web address]) Hip Goniometric Range of Motion Hip bilateral Hip ROM WFL Yes Testing Position Supine Comments All hip ROM WNL PT-OP-M Strength Start: 10/20/20 08:34 Freq: Status: Active Protocol: Document 10/20/20 09:45 AW (Rec: 10/20/20 17:25 AW [email or web address]) Hip Strength Hip Manual Muscle Testing bilateral Flexion (L2) 4 Good Extension (S1) 4 Good Abduction 4 Good Adduction 4+ Good+ External Rotation 4+ Good+ Internal Rotation 4+ Good+ Knee Strength Knee Manual Muscle Testing bilateral Flexion (S2) 5 Normal Extension (L3) 5 Normal PT-OP-Q Treatments Start: 10/20/20 08:34 Freq: Status: Active Protocol: Document 11/17/20 09:44 AW (Rec: 11/17/20 09:46 AW [id number]) Therapeutic Exercises Sitting Exercises HS stretch Sitting Exercise Name HS stretch Side bilateral Reps/Minutes 30SH x 4 Comments reviewed HEP pirformis stretch Sitting Exercise Name reviewed HEP Side bilateral Reps/Minutes 30 x2 Comments good feedback stretch post activity Standing Exercises anti-rotation press Standing Exercise Name anti-rotation press Resistance TB2 Reps/Minutes 2x10 each side Other Exercises 5x STS Other Exercise Name 5 x STS Reps/Minutes no UE support Comments 18.7, 15.4, 17.3 sec with two attempts needed on last set Therapeutic Activity Therapeutic Activity on/ off floor Name tall kneeling and half kneeling Comments On blue gym mat. Started in tall kneeling with hip extension 2x10. Progressed to half kneeling for balance control. Up from ground from half-kneel with chair support CGA. Gait Training Gait Activity gait with cog task Description gait with cog task Level of Assistance SBA Surface level Distance/Duration 3 min Treatment Focus dual task Comments Pt named John Reyes songs and talked through familiar recipes while walking with head turns. She was able to maintain path though gait and turns. Speed was average and did not change. Neuro Re-Education Treatment Balance Activities mCTSIB Details mCTSIB Comments 30 seconds in all conditions on first attempt. Increased sway in condition 4 but no LOB . PT-OP-T Assessment and Plan Start: 10/20/20 08:34 Freq: Status: Active Protocol: Document 11/17/20 09:44 AW (Rec: 11/17/20 13:07 AW [email or web address]) Physical Therapy Assessment Goals Five Impairment falls Rap Artist Goal (LTG) Pt will reduce falls frequency from weekly to monthly or less. LTG Duration 2 months - 12/23/20 Four Impairment self-efficacy Care Home Goal (LTG) Pt will improve ABC Scale score from 42% to 60% or greater to demonstrate reduction in falls risk LTG Duration 2 months - 12/23/20 Three Impairment floor transfers Short Term Goal (STG) Pt will get in and out of her soaking tub without fear of falling. 11/15/20: progressing: pt states still not confident getting in/out soaking tub without fear of falling. STG Duration 4 weeks - 11/17/20 Care Home Goal (LTG) Pt will rise from the floor with or without chair support in 10 seconds or less to demonstrate improved strength and self-efficacy. 11/15/20: progressing: pt able lower/ rise from floor with support of 2 hands on side mat tables and floor, not timed. LTG Duration 2 months - 12/23/20 Two Impairment strength Short Term Goal (STG) Pt will complete 5 Time Sit to Stand with no UE support in 12 seconds or less to demonstrate improved strength and reduction in falls risk. - 3 trials today 18.7 sec, 15.4 sec, and 17.3 sec with no UE involvement STG Duration 4 weeks - 11/17/20 Care Home Goal (LTG) Pt will improve hip strength to at least 4+/5 all planes for improved stability in gait . LTG Duration 2 months - 12/23/20 One Impairment impaired balance Short Term Goal (STG) Pt will score 120 on mCTSIB to demonstrate improved balance systems integration. STG Duration 11/17/20 - GOAL MET Care Home Goal (LTG) Pt will improve Functional Gait Assessment score from 23/ 30 to 26/30 or greater to match norms for age-matched peers and demonstrate reduction in falls risk. LTG Duration 2 months - 12/23/20 Assessment Summary Assessment Re-assessed today with pt showing improvement in mCTSIB and 5 Time Sit to Stand scores . Did part to whole training for floor recovery focusing on half-kneeling balance and tall kneeling hip extension. Physical Therapy Plan Frequency and Duration Frequency of Treatment 1-2x/week Duration of Treatment 2 months Plan of Care Start Date 10/20/20 Plan of Care End Date 12/23/20 Therapeutic Interventions Therapeutic Interventions Balance Training,Gait Training ,Home Exercise Program, Neuromuscular Re-education, Patient/Caregiver Education, Self-Care/Home Management, Sensory Integration, Therapeutic Activities, Therapeutic Exercises Next Visit Focus/Plan Next Note Type Treatment Note Next Visit Plan Progress on/off floor 1 UE assist then no use of chair and timed for assessment LTG # 4. Assess STS for time for STG # 2. POC: Add perturbations for static and dynamic balance. Consider dual task, increasing cognitive load.
--- NOTE | 2020-11-22 17:18 | PT.OTN ---
Current Diagnoses Difficulty in walking, not elsewhere classified (11/22/20) Unspecified abnormalities of gait and mobility (11/22/20) Physical Therapy Treatment Note PT-OP-A Visit Information Start: 10/20/20 08:34 Freq: Status: Active Protocol: Document 11/22/20 14:26 AW (Rec: 11/22/20 14:32 AW [id number]) Out-Patient Physical Therapy Visit Information Visit Information Visit Type Treatment Note Visit Start Time 13:45 Visit Stop Time 14:26 Total Visit Minutes 41 Visit Number 9 Number of QUALITY CONTROL COORDINATOR Visits 0 Evaluation Information Evaluation Date 10/20/20 PT-OP-B Current Condition Start: 10/20/20 08:34 Freq: Status: Active Protocol: Document 10/20/20 09:45 AW (Rec: 10/20/20 08:42 AW [email or web address]) Current Condition History of Current Condition Onset Date at least a year Current Complaints imbalance, falls History of Current Condition Amanda reports falling once weekly and having difficulty getting off the floor. She believes there is an inattention component. She is falling mostly at home - inside or out in her garden. She admits her home is cluttered. She occasionally forgets she's wearing reading glasses which causes her to be disoriented. She denies any injurous falls but has many bruises. Her mother at age 94 after a fall. Pt endorses some lightheadedness when she changes position too suddenly. Her BP is typically low. She notes she has occasional tingling in the tops of her feet and anterior shins but that this improved with a 25# weight loss last year. Pt lives alone in [place]. She regularly walks with friends on the [facility] trails. The more I do, the easier it is to do it. Prior Treatments and Tests Saw PHARMACY SPECIALIST for cognition screen which was WNL. Pt attended due to memory concerns but feels she has effective strategies to compensate. Future Testing and Treatments Planned 110/58 Developmental History Developmental History Pt has CHANCE and uses CPAP for sleep. She had RLS which resolved with weight loss. She has hearing loss and uses bilateral hearing aids. Treatment Goals Patient/Caregiver Goals Pt would like to be able to get on and off her men's bike without falling. She would like to be able to get up from the floor with more ease. SHe would like to be able to use her soaking tub. PT-OP-C Subjective Start: 10/20/20 08:34 Freq: Status: Active Protocol: Document 11/22/20 14:26 AW (Rec: 11/22/20 14:32 AW [id number]) OP-PT Subjective Patient Comments Patient Comments I did a lot of yard work yesterday and my back doesn't feel too bad. I wouldn't have done that a month ago. PT-OP-D Balance Start: 10/20/20 08:34 Freq: Status: Active Protocol: Document 10/20/20 09:45 AW (Rec: 10/20/20 17:23 AW [email or web address]) Balance Tests mCTSIB mCTSIB Position 1 30 mCTSIB Position 2 20 - 25 - 20 mCTSIB Position 3 25 - 20 - 18 mCTSIB Position 4 20 - 15 - 16 PT-OP-E Functional Tests Start: 10/20/20 08:34 Freq: Status: Active Protocol: Document 10/20/20 09:45 AW (Rec: 10/20/20 17:28 AW [email or web address]) Functional Tests Five Times Sit to Stand Test Score 16.9 sec Comments 5 full sit <> stands without UE support Other Functional Gait Assessment Name of Test FGA Score Comment see scanned score sheet PT-OP-H Neuro Start: 10/20/20 08:34 Freq: Status: Active Protocol: Document 10/20/20 09:45 AW (Rec: 10/20/20 17:23 AW [email or web address]) Sensation Evaluation Gross Sensation Gross Sensation Left LE Impaired,Right LE Impaired Sensation Description Tingling Comments Summary Comments Pt endorses occasional tingling BLE from tops of feet to anterior shins. She states this has improved since she lost 25# last year. Coordination Evaluation Comments Coordination Comments All coordination testing ( finger to nose EO and EC, rapid pronation/supination, and foot tapping) WNL. Deep Tendon Reflex & Clonus Assessment Deep Tendon Reflex Bilateral Patellar Deep Tendon Reflex 2+ Normal Bilateral Bicep Deep Tendon Reflex 2+ Normal Vital Signs Blood Pressure Sitting Blood Pressure (90/60-120/80 mmHg) 110/58 L Blood Pressure Source Manual Cuff,Right Upper Extremity PT-OP-K Range of Motion Start: 10/20/20 08:34 Freq: Status: Active Protocol: Document 10/20/20 09:45 AW (Rec: 10/20/20 17:25 AW [email or web address]) Hip Goniometric Range of Motion Hip bilateral Hip ROM WFL Yes Testing Position Supine Comments All hip ROM WNL PT-OP-M Strength Start: 10/20/20 08:34 Freq: Status: Active Protocol: Document 10/20/20 09:45 AW (Rec: 10/20/20 17:25 AW [email or web address]) Hip Strength Hip Manual Muscle Testing bilateral Flexion (L2) 4 Good Extension (S1) 4 Good Abduction 4 Good Adduction 4+ Good+ External Rotation 4+ Good+ Internal Rotation 4+ Good+ Knee Strength Knee Manual Muscle Testing bilateral Flexion (S2) 5 Normal Extension (L3) 5 Normal PT-OP-Q Treatments Start: 10/20/20 08:34 Freq: Status: Active Protocol: Document 11/22/20 14:26 AW (Rec: 11/22/20 14:32 AW [id number]) Therapeutic Exercises Sitting Exercises HS stretch Sitting Exercise Name HS stretch Side bilateral Reps/Minutes 30SH x 4 Comments prep for activity pirformis stretch Sitting Exercise Name reviewed HEP Side bilateral Reps/Minutes 30 x2 Comments prep for activity Standing Exercises anti-rotation press Standing Exercise Name anti-rotation press Resistance TB2 Reps/Minutes 2x10 each side Other Exercises 5x STS Other Exercise Name resisted sit to stands Resistance green sport cord at hips Reps/Minutes 2 x 10 Comments pt stands from green chair repeatedly as PT provides perturb via bungee Therapeutic Activity Therapeutic Activity on/ off floor Name tall kneeling and half kneeling Comments On blue gym mat. Started in tall kneeling with hip extension 2x10. Progressed to half kneeling for balance control. Up from ground from half-kneel with chair support CGA. Easier with left foot forward. With left foot forward, pt completes up from floor with B trekking poles, unilateral trekking pole, and then CGA. Gait Training Gait Activity bad dog Description bad dog Device Used no AD Level of Assistance SBA Distance/Duration 5 min Comments green sport cord attached at hips. Pt completes three laps around gym as PT provides random tugs in every direction via cord. Pt able to withstand all challenges, even in turns uneven surface gait Description uneven surface Device Used no AD Level of Assistance SBA Surface concrete, grass, hills, stairs Distance/Duration 12 min Treatment Focus stability Comments Pt walked outside clinic up and down grassy hill and back stairs without rail SBA. Also completed weaving around columns outside clinic. Neuro Re-Education Treatment Balance Activities grapevine Details grapevine Surface carpet, firm Reps/Duration 20' lap x 5 Comments After stepping reactions to work on coordination. Pt able to coordinate steps and to increase pace without incident . stepping reactions Details stepping reactions Surface carpet Reps/Duration 5 fwd, 1 left-leaning Comments Pt did well with fwd steps reactions, taking 1-2 steps to recover. In left lean, pt tripped over her feet and landed on her left side with PT lowering her to the ground. QMM filed. Pt reported mild left elbow pain but refused treatment and requested to continue with therapy. tandem walking Details tandem walking Surface firm Equipment rail for prn support Reps/Duration 20' 4 laps Comments Pt able to walk 10 steps without UE support. Incorporated head turns for additional challenge. PT-OP-T Assessment and Plan Start: 10/20/20 08:34 Freq: Status: Active Protocol: Document 11/22/20 14:26 AW (Rec: 11/22/20 17:18 AW [email or web address]) Physical Therapy Assessment Goals Five Impairment falls Window Unit Air Conditioning Mechanic Goal (LTG) Pt will reduce falls frequency from weekly to monthly or less. LTG Duration 2 months - 12/23/20 Four Impairment self-efficacy Usp Goal (LTG) Pt will improve ABC Scale score from 42% to 60% or greater to demonstrate reduction in falls risk LTG Duration 2 months - 12/23/20 Three Impairment floor transfers Short Term Goal (STG) Pt will get in and out of her soaking tub without fear of falling. 11/15/20: progressing: pt states still not confident getting in/out soaking tub without fear of falling. 11/22/20 - Pt has not tried yet but feels more confident and may try soon. STG Duration 4 weeks - 11/17/20 Usp Goal (LTG) Pt will rise from the floor with or without chair support in 10 seconds or less to demonstrate improved strength and self-efficacy. 11/15/20: progressing: pt able lower/ rise from floor with support of 2 hands on side mat tables and floor, not timed. LTG Duration 2 months - 12/23/20 Two Impairment strength Short Term Goal (STG) Pt will complete 5 Time Sit to Stand with no UE support in 12 seconds or less to demonstrate improved strength and reduction in falls risk. - 3 trials today 18.7 sec, 15.4 sec, and 17.3 sec with no UE involvement STG Duration 4 weeks - 11/17/20 Usp Goal (LTG) Pt will improve hip strength to at least 4+/5 all planes for improved stability in gait . LTG Duration 2 months - 12/23/20 One Impairment impaired balance Short Term Goal (STG) Pt will score 120 on mCTSIB to demonstrate improved balance systems integration. STG Duration 11/17/20 - GOAL MET Window Unit Air Conditioning Mechanic Goal (LTG) Pt will improve Functional Gait Assessment score from 23/ 30 to 26/30 or greater to match norms for age-matched peers and demonstrate reduction in falls risk. LTG Duration 2 months - 12/23/20 Assessment Summary Assessment Pt is working on higher-level balance with perturbations added to sit to stand and gait . She has progressed her tandem walking and is able to complete 10 steps without UE support. While practicing stepping reactions today, pt fell to her left side and was lowered to the ground by PT. She reported mild left elbow pain and denied any other injury, refused treatment. QMM filed. Pt continued working in therapy after fall and was able to progress stepping coordination. Physical Therapy Plan Frequency and Duration Frequency of Treatment 1-2x/week Duration of Treatment 2 months Plan of Care Start Date 10/20/20 Plan of Care End Date 12/23/20 Therapeutic Interventions Therapeutic Interventions Balance Training,Gait Training ,Home Exercise Program, Neuromuscular Re-education, Patient/Caregiver Education, Self-Care/Home Management, Sensory Integration, Therapeutic Activities, Therapeutic Exercises Next Visit Focus/Plan Next Note Type Treatment Note Next Visit Plan Re-assess for injury from tx today. POC: Add perturbations for static and dynamic balance. Consider dual task, increasing cognitive load.
--- NOTE | 2020-11-24 17:11 | PT.OTN ---
Current Diagnoses Difficulty in walking, not elsewhere classified (11/24/20) Unspecified abnormalities of gait and mobility (11/24/20) Physical Therapy Treatment Note PT-OP-A Visit Information Start: 10/20/20 08:34 Freq: Status: Active Protocol: Document 11/24/20 14:27 AW (Rec: 11/24/20 14:34 AW [id number]) Out-Patient Physical Therapy Visit Information Visit Information Visit Type Treatment Note Visit Start Time 13:45 Visit Stop Time 14:27 Total Visit Minutes 42 Visit Number 10 Number of MARKETING AUTOMATION MANAGER Visits 0 Evaluation Information Evaluation Date 10/20/20 PT-OP-B Current Condition Start: 10/20/20 08:34 Freq: Status: Active Protocol: Document 10/20/20 09:45 AW (Rec: 10/20/20 08:42 AW [email or web address]) Current Condition History of Current Condition Onset Date at least a year Current Complaints imbalance, falls History of Current Condition Amanda reports falling once weekly and having difficulty getting off the floor. She believes there is an inattention component. She is falling mostly at home - inside or out in her garden. She admits her home is cluttered. She occasionally forgets she's wearing reading glasses which causes her to be disoriented. She denies any injurous falls but has many bruises. Her mother at age 94 after a fall. Pt endorses some lightheadedness when she changes position too suddenly. Her BP is typically low. She notes she has occasional tingling in the tops of her feet and anterior shins but that this improved with a 25# weight loss last year. Pt lives alone in [place]. She regularly walks with friends on the [facility] trails. The more I do, the easier it is to do it. Prior Treatments and Tests Saw SALES PROMOTION DIRECTOR for cognition screen which was WNL. Pt attended due to memory concerns but feels she has effective strategies to compensate. Future Testing and Treatments Planned 110/58 Developmental History Developmental History Pt has CHANCE and uses CPAP for sleep. She had RLS which resolved with weight loss. She has hearing loss and uses bilateral hearing aids. Treatment Goals Patient/Caregiver Goals Pt would like to be able to get on and off her men's bike without falling. She would like to be able to get up from the floor with more ease. SHe would like to be able to use her soaking tub. PT-OP-C Subjective Start: 10/20/20 08:34 Freq: Status: Active Protocol: Document 11/24/20 14:27 AW (Rec: 11/24/20 14:34 AW [id number]) OP-PT Subjective Patient Comments Patient Comments Pt reports no consequence from fall during treatment on Saturday. She continues to do her HEP at home and feels she is improving. Patient Reported Progress Improving PT-OP-D Balance Start: 10/20/20 08:34 Freq: Status: Active Protocol: Document 10/20/20 09:45 AW (Rec: 10/20/20 17:23 AW [email or web address]) Balance Tests mCTSIB mCTSIB Position 1 30 mCTSIB Position 2 20 - 25 - 20 mCTSIB Position 3 25 - 20 - 18 mCTSIB Position 4 20 - 15 - 16 PT-OP-E Functional Tests Start: 10/20/20 08:34 Freq: Status: Active Protocol: Document 10/20/20 09:45 AW (Rec: 10/20/20 17:28 AW [email or web address]) Functional Tests Five Times Sit to Stand Test Score 16.9 sec Comments 5 full sit <> stands without UE support Other Functional Gait Assessment Name of Test FGA Score Comment see scanned score sheet PT-OP-H Neuro Start: 10/20/20 08:34 Freq: Status: Active Protocol: Document 10/20/20 09:45 AW (Rec: 10/20/20 17:23 AW [email or web address]) Sensation Evaluation Gross Sensation Gross Sensation Left LE Impaired,Right LE Impaired Sensation Description Tingling Comments Summary Comments Pt endorses occasional tingling BLE from tops of feet to anterior shins. She states this has improved since she lost 25# last year. Coordination Evaluation Comments Coordination Comments All coordination testing ( finger to nose EO and EC, rapid pronation/supination, and foot tapping) WNL. Deep Tendon Reflex & Clonus Assessment Deep Tendon Reflex Bilateral Patellar Deep Tendon Reflex 2+ Normal Bilateral Bicep Deep Tendon Reflex 2+ Normal Vital Signs Blood Pressure Sitting Blood Pressure (90/60-120/80 mmHg) 110/58 L Blood Pressure Source Manual Cuff,Right Upper Extremity PT-OP-K Range of Motion Start: 10/20/20 08:34 Freq: Status: Active Protocol: Document 10/20/20 09:45 AW (Rec: 10/20/20 17:25 AW [email or web address]) Hip Goniometric Range of Motion Hip bilateral Hip ROM WFL Yes Testing Position Supine Comments All hip ROM WNL PT-OP-M Strength Start: 10/20/20 08:34 Freq: Status: Active Protocol: Document 10/20/20 09:45 AW (Rec: 10/20/20 17:25 AW [email or web address]) Hip Strength Hip Manual Muscle Testing bilateral Flexion (L2) 4 Good Extension (S1) 4 Good Abduction 4 Good Adduction 4+ Good+ External Rotation 4+ Good+ Internal Rotation 4+ Good+ Knee Strength Knee Manual Muscle Testing bilateral Flexion (S2) 5 Normal Extension (L3) 5 Normal PT-OP-Q Treatments Start: 10/20/20 08:34 Freq: Status: Active Protocol: Document 11/24/20 14:27 AW (Rec: 11/24/20 14:34 AW [id number]) Therapeutic Exercises Sitting Exercises HS stretch Sitting Exercise Name HS stretch Side bilateral Equipment Used lg green theraball Reps/Minutes 30SH x 4 Comments prep for activity Other Exercises 5x STS Other Exercise Name resisted sit to stands Resistance blue sport cord at hips Reps/Minutes 2 x 10 Comments pt stands from green chair repeatedly as PT provides perturb via bungee Gait Training Gait Activity bad dog Description bad dog Device Used no AD Level of Assistance SBA Distance/Duration 5 min Comments blue sport cord attached at hips. Pt completes three laps around gym as PT provides random tugs in every direction via cord. Pt able to withstand all challenges, even in turns. Added carrying water cup half full. uneven surface gait Description hurdles, steps, foam, airex spaced randomly Device Used no AD Level of Assistance SBA>CGA Distance/Duration 15 min Treatment Focus stability Comments Obstacle course in clinic. Pt had most difficulty with river stone but no LOB today. Added carrying half cup of water which required CGA but no LOB Neuro Re-Education Treatment Balance Activities grapevine Details grapevine Surface carpet, firm Reps/Duration 20' lap x 5 Comments After stepping reactions to work on coordination. Pt able to coordinate steps and to increase pace without incident . tandem walking Details tandem walking Surface firm Equipment rail for prn support Reps/Duration 20' 6 laps Comments Pt able to walk 10 steps without UE support. Incorporated cognitive task ( spelling random words backwards) for additional challenge. Coordination Activities agility ladder Details agility ladder Reps/Duration 10 laps Comments in-in-out pattern with best times 12.7 and 11.7 seconds for the full ladder. PT-OP-T Assessment and Plan Start: 10/20/20 08:34 Freq: Status: Active Protocol: Document 11/24/20 14:27 AW (Rec: 11/24/20 17:10 AW [email or web address]) Physical Therapy Assessment Goals Five Impairment falls Custodial Goal (LTG) Pt will reduce falls frequency from weekly to monthly or less. LTG Duration 2 months - 12/23/20 Four Impairment self-efficacy Custodial Goal (LTG) Pt will improve ABC Scale score from 42% to 60% or greater to demonstrate reduction in falls risk LTG Duration 2 months - 12/23/20 Three Impairment floor transfers Short Term Goal (STG) Pt will get in and out of her soaking tub without fear of falling. 11/15/20: progressing: pt states still not confident getting in/out soaking tub without fear of falling. 11/22/20 - Pt has not tried yet but feels more confident and may try soon. STG Duration 4 weeks - 11/17/20 Control Clerk Subassembly Goal (LTG) Pt will rise from the floor with or without chair support in 10 seconds or less to demonstrate improved strength and self-efficacy. 11/15/20: progressing: pt able lower/ rise from floor with support of 2 hands on side mat tables and floor, not timed. LTG Duration 2 months - 12/23/20 Two Impairment strength Short Term Goal (STG) Pt will complete 5 Time Sit to Stand with no UE support in 12 seconds or less to demonstrate improved strength and reduction in falls risk. - 3 trials today 18.7 sec, 15.4 sec, and 17.3 sec with no UE involvement STG Duration 4 weeks - 11/17/20 Custodial Goal (LTG) Pt will improve hip strength to at least 4+/5 all planes for improved stability in gait . LTG Duration 2 months - 12/23/20 One Impairment impaired balance Short Term Goal (STG) Pt will score 120 on mCTSIB to demonstrate improved balance systems integration. STG Duration 11/17/20 - GOAL MET Control Clerk Subassembly Goal (LTG) Pt will improve Functional Gait Assessment score from 23/ 30 to 26/30 or greater to match norms for age-matched peers and demonstrate reduction in falls risk. LTG Duration 2 months - 12/23/20 Assessment Summary Assessment Pt continues to improve in balance/righting reactions and is able to withstand multidirectional perturbations in transfers and gait with good stability. Introduced agility ladder today with pt able to learn pattern and improve speed. Physical Therapy Plan Frequency and Duration Frequency of Treatment 1-2x/week Duration of Treatment 2 months Plan of Care Start Date 10/20/20 Plan of Care End Date 12/23/20 Therapeutic Interventions Therapeutic Interventions Balance Training,Gait Training ,Home Exercise Program, Neuromuscular Re-education, Patient/Caregiver Education, Self-Care/Home Management, Sensory Integration, Therapeutic Activities, Therapeutic Exercises Next Visit Focus/Plan Next Note Type Treatment Note Next Visit Plan POC: Add perturbations for static and dynamic balance. Consider dual task, increasing cognitive load. Continue with agility training.
--- NOTE | 2020-12-01 13:45 | PT.OTN ---
Current Diagnoses Difficulty in walking, not elsewhere classified (12/01/20) Unspecified abnormalities of gait and mobility (12/01/20) Physical Therapy Treatment Note PT-OP-A Visit Information Start: 10/20/20 08:34 Freq: Status: Active Protocol: Document 12/01/20 13:05 SP (Rec: 12/01/20 13:49 SP [id number]) Out-Patient Physical Therapy Visit Information Visit Information Visit Type Treatment Note Visit Start Time 13:05 Visit Stop Time 13:45 Total Visit Minutes 40 Visit Number 11 Number of FARM LABOR CONTRACTOR Visits 1 Evaluation Information Evaluation Date 10/20/20 PT-OP-B Current Condition Start: 10/20/20 08:34 Freq: Status: Active Protocol: Document 10/20/20 09:45 AW (Rec: 10/20/20 08:42 AW [email or web address]) Current Condition History of Current Condition Onset Date at least a year Current Complaints imbalance, falls History of Current Condition Amanda reports falling once weekly and having difficulty getting off the floor. She believes there is an inattention component. She is falling mostly at home - inside or out in her garden. She admits her home is cluttered. She occasionally forgets she's wearing reading glasses which causes her to be disoriented. She denies any injurous falls but has many bruises. Her mother at age 94 after a fall. Pt endorses some lightheadedness when she changes position too suddenly. Her BP is typically low. She notes she has occasional tingling in the tops of her feet and anterior shins but that this improved with a 25# weight loss last year. Pt lives alone in [place]. She regularly walks with friends on the [facility] trails. The more I do, the easier it is to do it. Prior Treatments and Tests Saw POWER NUT RUNNER OPERATOR for cognition screen which was WNL. Pt attended due to memory concerns but feels she has effective strategies to compensate. Future Testing and Treatments Planned 110/58 Developmental History Developmental History Pt has CHANCE and uses CPAP for sleep. She had RLS which resolved with weight loss. She has hearing loss and uses bilateral hearing aids. Treatment Goals Patient/Caregiver Goals Pt would like to be able to get on and off her men's bike without falling. She would like to be able to get up from the floor with more ease. SHe would like to be able to use her soaking tub. PT-OP-C Subjective Start: 10/20/20 08:34 Freq: Status: Active Protocol: Document 12/01/20 13:05 SP (Rec: 12/01/20 13:49 SP [id number]) OP-PT Subjective Patient Comments Patient Comments Pt reports felt fine after last tx, even though LOB and fell during tx, no lasting adverse affects. No falls since then. PT-OP-D Balance Start: 10/20/20 08:34 Freq: Status: Active Protocol: Document 10/20/20 09:45 AW (Rec: 10/20/20 17:23 AW [email or web address]) Balance Tests mCTSIB mCTSIB Position 1 30 mCTSIB Position 2 20 - 25 - 20 mCTSIB Position 3 25 - 20 - 18 mCTSIB Position 4 20 - 15 - 16 PT-OP-E Functional Tests Start: 10/20/20 08:34 Freq: Status: Active Protocol: Document 10/20/20 09:45 AW (Rec: 10/20/20 17:28 AW [email or web address]) Functional Tests Five Times Sit to Stand Test Score 16.9 sec Comments 5 full sit <> stands without UE support Other Functional Gait Assessment Name of Test FGA Score Comment see scanned score sheet PT-OP-H Neuro Start: 10/20/20 08:34 Freq: Status: Active Protocol: Document 10/20/20 09:45 AW (Rec: 10/20/20 17:23 AW [email or web address]) Sensation Evaluation Gross Sensation Gross Sensation Left LE Impaired,Right LE Impaired Sensation Description Tingling Comments Summary Comments Pt endorses occasional tingling BLE from tops of feet to anterior shins. She states this has improved since she lost 25# last year. Coordination Evaluation Comments Coordination Comments All coordination testing ( finger to nose EO and EC, rapid pronation/supination, and foot tapping) WNL. Deep Tendon Reflex & Clonus Assessment Deep Tendon Reflex Bilateral Patellar Deep Tendon Reflex 2+ Normal Bilateral Bicep Deep Tendon Reflex 2+ Normal Vital Signs Blood Pressure Sitting Blood Pressure (90/60-120/80 mmHg) 110/58 L Blood Pressure Source Manual Cuff,Right Upper Extremity PT-OP-K Range of Motion Start: 10/20/20 08:34 Freq: Status: Active Protocol: Document 10/20/20 09:45 AW (Rec: 10/20/20 17:25 AW [email or web address]) Hip Goniometric Range of Motion Hip bilateral Hip ROM WFL Yes Testing Position Supine Comments All hip ROM WNL PT-OP-M Strength Start: 10/20/20 08:34 Freq: Status: Active Protocol: Document 10/20/20 09:45 AW (Rec: 10/20/20 17:25 AW [email or web address]) Hip Strength Hip Manual Muscle Testing bilateral Flexion (L2) 4 Good Extension (S1) 4 Good Abduction 4 Good Adduction 4+ Good+ External Rotation 4+ Good+ Internal Rotation 4+ Good+ Knee Strength Knee Manual Muscle Testing bilateral Flexion (S2) 5 Normal Extension (L3) 5 Normal PT-OP-Q Treatments Start: 10/20/20 08:34 Freq: Status: Active Protocol: Document 12/01/20 13:05 SP (Rec: 12/01/20 13:49 SP [id number]) Therapeutic Exercises Sitting Exercises HS stretch Sitting Exercise Name HS stretchr reviewed Side bilateral Reps/Minutes 30SH x 4 Comments prep for activity pirformis stretch Sitting Exercise Name reviewed HEP Side bilateral Reps/Minutes 30 x2 Comments prep for activity Other Exercises 5x STS Other Exercise Name resisted sit to stands Resistance green sport cord at hips Equipment Used LOB x1 initial sit Reps/Minutes x 10 Comments pt stands from green chair repeatedly as PT provides perturb via bungee, Therapeutic Activity Therapeutic Activity on/ off floor Name tall kneeling and half kneeling Comments On blue gym mat. Stand >1/2 knee LLE front and UE contact back chair floor slow descend> quadruped> sit. sit>quadruped > L 1/2 kneel contact back chair to assimulate getting up from in tub with rail. Progressed 4 more repetitions RUE on floor LUE on thigh 1/2 >stand SBA. Easier with left foot forward. Unable to get RLE forward position when tried. Gait Training Gait Activity uneven surface gait Description hurdles, steps, foam, airex spaced randomly Device Used no AD Level of Assistance SBA>CGA Distance/Duration 15 min Treatment Focus stability Comments Obstacle course in clinic. Pt had most difficulty with river stone but no LOB today. Neuro Re-Education Treatment Balance Activities gait with head turns Details gait with head turns Surface level Reps/Duration 5 min Comments no LOB, carrying cup water. Cued increase stride and heel toe PT-OP-T Assessment and Plan Start: 10/20/20 08:34 Freq: Status: Active Protocol: Document 12/01/20 13:05 SP (Rec: 12/01/20 13:49 SP [id number]) Physical Therapy Assessment Goals Five Impairment falls Senior Care Goal (LTG) Pt will reduce falls frequency from weekly to monthly or less. LTG Duration 2 months - 12/23/20 Four Impairment self-efficacy Senior Care Goal (LTG) Pt will improve ABC Scale score from 42% to 60% or greater to demonstrate reduction in falls risk LTG Duration 2 months - 12/23/20 Three Impairment floor transfers Short Term Goal (STG) Pt will get in and out of her soaking tub without fear of falling. 11/15/20: progressing: pt states still not confident getting in/out soaking tub without fear of falling. 11/22/20 - Pt has not tried yet but feels more confident and may try soon. 12/01/20: progressing contact chair at first stand<> 1/2 kneel<> tall kneel<>quadruped, progressed to UE support on LUE front and RUE on floor CGA >SBA improved for in/out tub. STG Duration 4 weeks - 11/17/20 Project Inspector Goal (LTG) Pt will rise from the floor with or without chair support in 10 seconds or less to demonstrate improved strength and self-efficacy. 11/15/20: progressing: pt able lower/ rise from floor with support of 2 hands on side mat tables and floor, not timed. 12/01/20: progressing: pt initial use of chair back for support then decreased to hands front knee and floor ascend/ descend CGa> SBA, not timed. LTG Duration 2 months - 12/23/20 Two Impairment strength Short Term Goal (STG) Pt will complete 5 Time Sit to Stand with no UE support in 12 seconds or less to demonstrate improved strength and reduction in falls risk. - 3 trials today 18.7 sec, 15.4 sec, and 17.3 sec with no UE involvement STG Duration 4 weeks - 11/17/20 Senior Care Goal (LTG) Pt will improve hip strength to at least 4+/5 all planes for improved stability in gait . LTG Duration 2 months - 12/23/20 One Impairment impaired balance Short Term Goal (STG) Pt will score 120 on mCTSIB to demonstrate improved balance systems integration. STG Duration 11/17/20 - GOAL MET Senior Care Goal (LTG) Pt will improve Functional Gait Assessment score from 23/ 30 to 26/30 or greater to match norms for age-matched peers and demonstrate reduction in falls risk. LTG Duration 2 months - 12/23/20 Assessment Summary Assessment Pt improved with on/off floor with UE support on front knee and able hip hinge forward to WB on floor x4 reps, improved slow descent/ascend with repetitions, not timed. Pt requires cues for increased stride for improved quad facilitation and upright posture during dynamic gait carrying cup water for safety foot clearance and stability. Retro wt shift LOB initial descend sit into chair, self recovery quick hip hinge with hands on chair seat. Physical Therapy Plan Frequency and Duration Frequency of Treatment 1-2x/week Duration of Treatment 2 months Plan of Care Start Date 10/20/20 Plan of Care End Date 12/23/20 Therapeutic Interventions Therapeutic Interventions Balance Training,Gait Training ,Home Exercise Program, Neuromuscular Re-education, Patient/Caregiver Education, Self-Care/Home Management, Sensory Integration, Therapeutic Activities, Therapeutic Exercises Next Visit Focus/Plan Next Note Type Treatment Note Next Visit Plan Continue ascend/descend getting on/off floor resisted sitting and added perturbations for static and dynamic balance. POC: Consider dual task, increasing cognitive load. Continue with agility training .
--- NOTE | 2020-12-07 09:54 | PT.OTN ---
Current Diagnoses Difficulty in walking, not elsewhere classified (12/07/20) Unspecified abnormalities of gait and mobility (12/07/20) Physical Therapy Treatment Note PT-OP-A Visit Information Start: 10/20/20 08:34 Freq: Status: Active Protocol: Document 12/07/20 09:44 AW (Rec: 12/07/20 09:50 AW [id number]) Out-Patient Physical Therapy Visit Information Visit Information Visit Type Treatment Note Visit Start Time 09:00 Visit Stop Time 09:44 Total Visit Minutes 44 Visit Number 12 Number of FIRE EXTINGUISHER INSTALLER Visits 0 Evaluation Information Evaluation Date 10/20/20 PT-OP-B Current Condition Start: 10/20/20 08:34 Freq: Status: Active Protocol: Document 10/20/20 09:45 AW (Rec: 10/20/20 08:42 AW [email or web address]) Current Condition History of Current Condition Onset Date at least a year Current Complaints imbalance, falls History of Current Condition Amanda reports falling once weekly and having difficulty getting off the floor. She believes there is an inattention component. She is falling mostly at home - inside or out in her garden. She admits her home is cluttered. She occasionally forgets she's wearing reading glasses which causes her to be disoriented. She denies any injurous falls but has many bruises. Her mother at age 94 after a fall. Pt endorses some lightheadedness when she changes position too suddenly. Her BP is typically low. She notes she has occasional tingling in the tops of her feet and anterior shins but that this improved with a 25# weight loss last year. Pt lives alone in [place]. She regularly walks with friends on the [facility] trails. The more I do, the easier it is to do it. Prior Treatments and Tests Saw MONUMENT STONECUTTER for cognition screen which was WNL. Pt attended due to memory concerns but feels she has effective strategies to compensate. Future Testing and Treatments Planned 110/58 Developmental History Developmental History Pt has CHANCE and uses CPAP for sleep. She had RLS which resolved with weight loss. She has hearing loss and uses bilateral hearing aids. Treatment Goals Patient/Caregiver Goals Pt would like to be able to get on and off her men's bike without falling. She would like to be able to get up from the floor with more ease. SHe would like to be able to use her soaking tub. PT-OP-C Subjective Start: 10/20/20 08:34 Freq: Status: Active Protocol: Document 12/07/20 09:44 AW (Rec: 12/07/20 09:50 AW [id number]) OP-PT Subjective Patient Comments Patient Comments I packed my car last night and made my own unintentional obstacle course and I did fine ! Patient Reported Progress Improving PT-OP-D Balance Start: 10/20/20 08:34 Freq: Status: Active Protocol: Document 10/20/20 09:45 AW (Rec: 10/20/20 17:23 AW [email or web address]) Balance Tests mCTSIB mCTSIB Position 1 30 mCTSIB Position 2 20 - 25 - 20 mCTSIB Position 3 25 - 20 - 18 mCTSIB Position 4 20 - 15 - 16 PT-OP-E Functional Tests Start: 10/20/20 08:34 Freq: Status: Active Protocol: Document 10/20/20 09:45 AW (Rec: 10/20/20 17:28 AW [email or web address]) Functional Tests Five Times Sit to Stand Test Score 16.9 sec Comments 5 full sit <> stands without UE support Other Functional Gait Assessment Name of Test FGA Score Comment see scanned score sheet PT-OP-H Neuro Start: 10/20/20 08:34 Freq: Status: Active Protocol: Document 10/20/20 09:45 AW (Rec: 10/20/20 17:23 AW [email or web address]) Sensation Evaluation Gross Sensation Gross Sensation Left LE Impaired,Right LE Impaired Sensation Description Tingling Comments Summary Comments Pt endorses occasional tingling BLE from tops of feet to anterior shins. She states this has improved since she lost 25# last year. Coordination Evaluation Comments Coordination Comments All coordination testing ( finger to nose EO and EC, rapid pronation/supination, and foot tapping) WNL. Deep Tendon Reflex & Clonus Assessment Deep Tendon Reflex Bilateral Patellar Deep Tendon Reflex 2+ Normal Bilateral Bicep Deep Tendon Reflex 2+ Normal Vital Signs Blood Pressure Sitting Blood Pressure (90/60-120/80 mmHg) 110/58 L Blood Pressure Source Manual Cuff,Right Upper Extremity PT-OP-K Range of Motion Start: 10/20/20 08:34 Freq: Status: Active Protocol: Document 10/20/20 09:45 AW (Rec: 10/20/20 17:25 AW [email or web address]) Hip Goniometric Range of Motion Hip bilateral Hip ROM WFL Yes Testing Position Supine Comments All hip ROM WNL PT-OP-M Strength Start: 10/20/20 08:34 Freq: Status: Active Protocol: Document 10/20/20 09:45 AW (Rec: 10/20/20 17:25 AW [email or web address]) Hip Strength Hip Manual Muscle Testing bilateral Flexion (L2) 4 Good Extension (S1) 4 Good Abduction 4 Good Adduction 4+ Good+ External Rotation 4+ Good+ Internal Rotation 4+ Good+ Knee Strength Knee Manual Muscle Testing bilateral Flexion (S2) 5 Normal Extension (L3) 5 Normal PT-OP-Q Treatments Start: 10/20/20 08:34 Freq: Status: Active Protocol: Document 12/07/20 09:44 AW (Rec: 12/07/20 09:50 AW [id number]) Gym Equipment Shuttle Recovery Bilateral Squats Details b squats Resistance 62, 75 Shuttle Recovery Platform Stable Reps/Time 62#x15; 75#x12 Therapeutic Exercises Standing Exercises lateral band walk Standing Exercise Name lateral band walk Side bilateral Resistance level 1 Equipment Used TB Reps/Minutes 20' lap x 2 Comments cued eccentric control SLS Standing Exercise Name SLS Side bilateral Equipment Used no UE support Reps/Minutes 5 min Comments R: 6, 3, 5. L: 20, 22 Other Exercises 5x STS Other Exercise Name 5XSTS Comments 14.9 and 13.9 sec without UE support Therapeutic Activity Therapeutic Activity on/ off floor Name floor recovery, no chair Reps/Minutes 5 reps Comments On blue gym mat. Stand >1/2 knee LLE front, slow descend> quadruped> sit. sit>quadruped > L 1/2 kneel, LUE on left thigh>stand. SBA for all reps x 5. Gait Training Gait Activity FGA Description FGA Device Used no AD Level of Assistance SBA Surface tile, carpet, stairs Distance/Duration 10 min Treatment Focus assessment Comments with single points deducted for gait with horizontal head turns and gait with eyes closed. PT-OP-T Assessment and Plan Start: 10/20/20 08:34 Freq: Status: Active Protocol: Document 12/07/20 09:44 AW (Rec: 12/07/20 09:54 AW [email or web address]) Physical Therapy Assessment Goals Five Impairment falls Senior Care Goal (LTG) Pt will reduce falls frequency from weekly to monthly or less. 12/07/20 - MET. Pt has had one fall during therapy but no other falls since initiating PT. LTG Duration 2 months - 12/23/20 Four Impairment self-efficacy It Operations Analyst Goal (LTG) Pt will improve ABC Scale score from 42% to 60% or greater to demonstrate reduction in falls risk LTG Duration 2 months - 12/23/20 Three Impairment floor transfers Short Term Goal (STG) Pt will get in and out of her soaking tub without fear of falling. 11/15/20: progressing: pt states still not confident getting in/out soaking tub without fear of falling. 11/22/20 - Pt has not tried yet but feels more confident and may try soon. 12/01/20: progressing contact chair at first stand<> 1/2 kneel<> tall kneel<>quadruped, progressed to UE support on LUE front and RUE on floor CGA >SBA improved for in/out tub. STG Duration 4 weeks - 11/17/20 It Operations Analyst Goal (LTG) Pt will rise from the floor with or without chair support in 10 seconds or less to demonstrate improved strength and self-efficacy. 11/15/20: progressing: pt able lower/ rise from floor with support of 2 hands on side mat tables and floor, not timed. 12/01/20: progressing: pt initial use of chair back for support then decreased to hands front knee and floor ascend/ descend CGa> SBA, not timed. LTG Duration 2 months - 12/23/20 Two Impairment strength Short Term Goal (STG) Pt will complete 5 Time Sit to Stand with no UE support in 12 seconds or less to demonstrate improved strength and reduction in falls risk. - 3 trials today 18.7 sec, 15.4 sec, and 17.3 sec with no UE involvement STG Duration 4 weeks - 11/17/20 Senior Care Goal (LTG) Pt will improve hip strength to at least 4+/5 all planes for improved stability in gait . LTG Duration 2 months - 12/23/20 One Impairment impaired balance Short Term Goal (STG) Pt will score 120 on mCTSIB to demonstrate improved balance systems integration. STG Duration 11/17/20 - GOAL MET It Operations Analyst Goal (LTG) Pt will improve Functional Gait Assessment score from 23/ 30 to 26/30 or greater to match norms for age-matched peers and demonstrate reduction in falls risk. 12/07/20 MET Pt scores 28/30 o0n FGA today. LTG Duration 2 months - 12/23/20 Assessment Summary Assessment Pt's confidence with floor recovery is improving. 5 Time Sit to Stand improved from previous timed attempts indicating improved LE strength and power. FGA improved from 23 to 30. Pt is approaching readiness for discharge. Physical Therapy Plan Frequency and Duration Frequency of Treatment 1-2x/week Duration of Treatment 2 months Plan of Care Start Date 10/20/20 Plan of Care End Date 12/23/20 Therapeutic Interventions Therapeutic Interventions Balance Training,Gait Training ,Home Exercise Program, Neuromuscular Re-education, Patient/Caregiver Education, Self-Care/Home Management, Sensory Integration, Therapeutic Activities, Therapeutic Exercises Next Visit Focus/Plan Next Note Type Discharge Summary Next Visit Plan Time floor transfer for goals. Assess ABC. Hip strength MMT. Possible discharge?
--- NOTE | 2020-12-15 16:04 | PT.OTN ---
Current Diagnoses Difficulty in walking, not elsewhere classified (12/15/20) Unspecified abnormalities of gait and mobility (12/15/20) Physical Therapy Treatment Note PT-OP-A Visit Information Start: 10/20/20 08:34 Freq: Status: Active Protocol: Document 12/15/20 13:43 AW (Rec: 12/15/20 13:45 AW [id number]) Out-Patient Physical Therapy Visit Information Visit Information Visit Type Treatment Note Visit Start Time 12:56 Visit Stop Time 13:40 Total Visit Minutes 44 Visit Number 13 Number of PROTOTYPE ENGINEER Visits 0 Evaluation Information Evaluation Date 10/20/20 PT-OP-B Current Condition Start: 10/20/20 08:34 Freq: Status: Active Protocol: Document 10/20/20 09:45 AW (Rec: 10/20/20 08:42 AW [email or web address]) Current Condition History of Current Condition Onset Date at least a year Current Complaints imbalance, falls History of Current Condition Amanda reports falling once weekly and having difficulty getting off the floor. She believes there is an inattention component. She is falling mostly at home - inside or out in her garden. She admits her home is cluttered. She occasionally forgets she's wearing reading glasses which causes her to be disoriented. She denies any injurous falls but has many bruises. Her mother at age 94 after a fall. Pt endorses some lightheadedness when she changes position too suddenly. Her BP is typically low. She notes she has occasional tingling in the tops of her feet and anterior shins but that this improved with a 25# weight loss last year. Pt lives alone in [place]. She regularly walks with friends on the [facility] trails. The more I do, the easier it is to do it. Prior Treatments and Tests Saw [employer] OUTSIDE SALES MANAGER for cognition screen which was WNL. Pt attended due to memory concerns but feels she has effective strategies to compensate. Future Testing and Treatments Planned 110/58 Developmental History Developmental History Pt has CHANCE and uses CPAP for sleep. She had RLS which resolved with weight loss. She has hearing loss and uses bilateral hearing aids. Treatment Goals Patient/Caregiver Goals Pt would like to be able to get on and off her men's bike without falling. She would like to be able to get up from the floor with more ease. SHe would like to be able to use her soaking tub. PT-OP-C Subjective Start: 10/20/20 08:34 Freq: Status: Active Protocol: Document 12/15/20 13:43 AW (Rec: 12/15/20 13:45 AW [id number]) OP-PT Subjective Patient Comments Patient Comments Pt reports good balance on uneven surfaces during recent trip. She was able to plug in her CPAP machine on the floor under a table and get up without difficulty. Patient Reported Progress Improving Patient Questionnaires ABC- Activity Specific Balance Confidence Scale ABC Score 91 ABC Functional Impairment 80 to <100% Impaired (Score 1- 20) PT-OP-D Balance Start: 10/20/20 08:34 Freq: Status: Active Protocol: Document 10/20/20 09:45 AW (Rec: 10/20/20 17:23 AW [email or web address]) Balance Tests mCTSIB mCTSIB Position 1 30 mCTSIB Position 2 20 - 25 - 20 mCTSIB Position 3 25 - 20 - 18 mCTSIB Position 4 20 - 15 - 16 PT-OP-E Functional Tests Start: 10/20/20 08:34 Freq: Status: Active Protocol: Document 10/20/20 09:45 AW (Rec: 10/20/20 17:28 AW [email or web address]) Functional Tests Five Times Sit to Stand Test Score 16.9 sec Comments 5 full sit <> stands without UE support Other Functional Gait Assessment Name of Test FGA Score 23/30 Comment see scanned score sheet PT-OP-H Neuro Start: 10/20/20 08:34 Freq: Status: Active Protocol: Document 10/20/20 09:45 AW (Rec: 10/20/20 17:23 AW [email or web address]) Sensation Evaluation Gross Sensation Gross Sensation Left LE Impaired,Right LE Impaired Sensation Description Tingling Comments Summary Comments Pt endorses occasional tingling BLE from tops of feet to anterior shins. She states this has improved since she lost 25# last year. Coordination Evaluation Comments Coordination Comments All coordination testing ( finger to nose EO and EC, rapid pronation/supination, and foot tapping) WNL. Deep Tendon Reflex & Clonus Assessment Deep Tendon Reflex Bilateral Patellar Deep Tendon Reflex 2+ Normal Bilateral Bicep Deep Tendon Reflex 2+ Normal Vital Signs Blood Pressure Sitting Blood Pressure (90/60-120/80 mmHg) 110/58 L Blood Pressure Source Manual Cuff,Right Upper Extremity PT-OP-K Range of Motion Start: 10/20/20 08:34 Freq: Status: Active Protocol: Document 10/20/20 09:45 AW (Rec: 10/20/20 17:25 AW [email or web address]) Hip Goniometric Range of Motion Hip bilateral Hip ROM WFL Yes Testing Position Supine Comments All hip ROM WNL PT-OP-M Strength Start: 10/20/20 08:34 Freq: Status: Active Protocol: Document 10/20/20 09:45 AW (Rec: 10/20/20 17:25 AW [email or web address]) Hip Strength Hip Manual Muscle Testing bilateral Flexion (L2) 4 Good Extension (S1) 4 Good Abduction 4 Good Adduction 4+ Good+ External Rotation 4+ Good+ Internal Rotation 4+ Good+ Knee Strength Knee Manual Muscle Testing bilateral Flexion (S2) 5 Normal Extension (L3) 5 Normal PT-OP-Q Treatments Start: 10/20/20 08:34 Freq: Status: Active Protocol: Document 12/15/20 13:43 AW (Rec: 12/15/20 13:45 AW [id number]) Therapeutic Exercises Standing Exercises SLS Standing Exercise Name SLS Side bilateral Equipment Used no UE support Reps/Minutes 5 min Comments 15 sec BLE Other Exercises 5x STS Other Exercise Name 5XSTS Comments 14.9 and 13.2 sec without UE support Therapeutic Activity Therapeutic Activity on/ off floor Name floor recovery, no chair Reps/Minutes 3 reps, timed Comments On blue gym mat. Stand >1/2 knee LLE front, slow descend> quadruped> sit. sit>quadruped > L 1/2 kneel, LUE on left thigh>stand. SBA for all reps x 3. All reps 8-10 seconds Gait Training Gait Activity stairs Description stairs Device Used none Distance/Duration 5 min Treatment Focus stability while carrying Comments Pt ascended and descended without rail and then repeated with 4 step in arms to simulate carrying dinner tray up and down stairs at home. Supervision level of assist. gait with cog task Description gait with cog task Level of Assistance SBA Surface level Distance/Duration 3 min Treatment Focus dual task Comments Carrying >1/2 full cup of water while counting down from random numbers by threes. She was able to maintain path though gait and turns. Speed was average and did not change . Neuro Re-Education Treatment Balance Activities star balance Details star balance Reps/Duration 5 min Comments fwd/lateral/bwd; cued toe tap vs weight shift gait with head turns Details gait with head turns Surface level Reps/Duration 5 min Comments no LOB, carrying cup water. Cued increase stride and heel toe PT-OP-T Assessment and Plan Start: 10/20/20 08:34 Freq: Status: Active Protocol: Document 12/15/20 13:43 AW (Rec: 12/15/20 16:04 AW [email or web address]) Physical Therapy Assessment Goals Five Impairment falls Vehicle Service Attendant Goal (LTG) Pt will reduce falls frequency from weekly to monthly or less. 12/07/20 - MET. Pt has had one fall during therapy but no other falls since initiating PT. LTG Duration 2 months - 12/23/20 Four Impairment self-efficacy Vehicle Service Attendant Goal (LTG) Pt will improve ABC Scale score from 42% to 60% or greater to demonstrate reduction in falls risk 12/14/20 - Pt scores 91% on ABC. GOAL MET LTG Duration 2 months - 12/23/20 Three Impairment floor transfers Short Term Goal (STG) Pt will get in and out of her soaking tub without fear of falling. 11/15/20: progressing: pt states still not confident getting in/out soaking tub without fear of falling. 11/22/20 - Pt has not tried yet but feels more confident and may try soon. 12/01/20: progressing contact chair at first stand<> 1/2 kneel<> tall kneel<>quadruped, progressed to UE support on LUE front and RUE on floor CGA >SBA improved for in/out tub. STG Duration 4 weeks - 11/17/20 Usp Goal (LTG) Pt will rise from the floor with or without chair support in 10 seconds or less to demonstrate improved strength and self-efficacy. 11/15/20: progressing: pt able lower/ rise from floor with support of 2 hands on side mat tables and floor, not timed. 12/01/20: progressing: pt initial use of chair back for support then decreased to hands front knee and floor ascend/ descend CGa> SBA, not timed. 12/14/20: Two reps today SBA timed at 10 sec and 8 sec. LTG Duration 2 months - 12/23/20 Two Impairment strength Short Term Goal (STG) Pt will complete 5 Time Sit to Stand with no UE support in 12 seconds or less to demonstrate improved strength and reduction in falls risk. - 3 trials today 18.7 sec, 15.4 sec, and 17.3 sec with no UE involvement STG Duration 4 weeks - 11/17/20 Vehicle Service Attendant Goal (LTG) Pt will improve hip strength to at least 4+/5 all planes for improved stability in gait . 12/14/20 MET LTG Duration 2 months - 12/23/20 One Impairment impaired balance Short Term Goal (STG) Pt will score 120 on mCTSIB to demonstrate improved balance systems integration. STG Duration 11/17/20 - GOAL MET Vehicle Service Attendant Goal (LTG) Pt will improve Functional Gait Assessment score from 23/ 30 to 26/30 or greater to match norms for age-matched peers and demonstrate reduction in falls risk. 12/07/20 MET Pt scores 28/30 on FGA today. LTG Duration 2 months - 12/23/20 Assessment Summary Assessment Pt has met all goals and exceeded on several targets, including ABC score and floor recovery. Pt is committed to continuing with HEP and plans to increase activity in the future by joining a gym in [place]. Pt is appropriate to discharge. Physical Therapy Plan Frequency and Duration Frequency of Treatment 1-2x/week Duration of Treatment 2 months Plan of Care Start Date 10/20/20 Plan of Care End Date 12/23/20 Therapeutic Interventions Therapeutic Interventions Balance Training,Gait Training ,Home Exercise Program, Neuromuscular Re-education, Patient/Caregiver Education, Self-Care/Home Management, Sensory Integration, Therapeutic Activities, Therapeutic Exercises Discharge Physical Therapy Discharge Reasons Goals Met Discharge Comments All goals met or exceeded. Pt' s confidence has improved over the course of therapy and her performance on objective balance measures are WNL or better than norms for her age- matched peers.
== END 2020-12-21 09:25 | disposition home or self-care (01) ==
LOC: PHYS 13:00
PROVIDERS: Family Provider Family Medicine; PCP Family Medicine; Referring Provider Family Medicine; Visit Provider Family Medicine
DX: R26.9 Unspecified abnormalities of gait and mobility (principal); R26.2 Difficulty in walking, not elsewhere classified
CPT/HCPCS: 97110; 97112; 97116; 97140; 97161; 97530

== ENCOUNTER → 2021-04-26 09:43 | Outpatient (CLI) | payer MEDICARE, SELFPAY ==
[2021-04-26 12:22] LABS: Alanine Aminotransferase 16 IU/L (<35); Albumin 4.3 g/dL (3.5-5.0); Albumin Globulin Ratio 1.6 (1.0-2.8); Alkaline Phosphatase 42 U/L (38-126); Aspartate Aminotransferase 27 IU/L (14-36); BUN Creatinine Ratio 25.3 (6-22); Bilirubin Total 0.6 mg/dL (0.2-1.3); Blood Urea Nitrogen 19 mg/dL (7-17); Calcium 9.1 mg/dL (8.4-10.2); Carbon Dioxide 30 mmol/L (22-32); Chloride 107 mmol/L (98-107); Estimated Glomerular Filt Rate > 60.0 mL/min (>60); Globulin 2.7 g/dL (1.7-4.1); Glucose 93 mg/dL (80-110); HDL Cholesterol 74 mg/dL (40-60); HEMOLYSIS 17 (0-50); Potassium 3.8 mmol/L (3.4-5.1); Sodium 140 mmol/L (137-145); Triglycerides 163 mg/dL (35-150)
[2021-04-26 12:29] LABS: Cholesterol 359 mg/dL (140-199); LDL Cholesterol Calculated 252 mg/dL (<100)
== END ==
PROVIDERS: Family Provider Family Medicine; PCP Internal Medicine; Referring Provider Family Medicine; Visit Provider Family Medicine
DX: E78.1 Pure hyperglyceridemia (principal); Z83.3 Family history of diabetes mellitus; E78.2 Mixed hyperlipidemia
CPT/HCPCS: 36415; 80053; 80061

== ENCOUNTER 2021-05-05 20:18 | Emergency (ER) | payer MEDICARE, SELFPAY ==
[2021-05-05 20:32] VITALS: BP 162/80; PULSE 95; RESP 15; TEMP 37.1; O2SAT 98; BMI 25.7
--- NOTE | 2021-05-05 20:43 | DI.CT.S_ITS ---
PROCEDURE: CT HEAD/BRAIN WO CON INDICATIONS: fall with large lac to head TECHNIQUE: Noncontrast 4.5 mm thick angled axial sections acquired from the foramen magnum to the vertex, with coronal and sagittal reformats. For radiation dose reduction, the following was used: automated exposure control, adjustment of mA and/or kV according to patient size. COMPARISON: None. FINDINGS: Image quality: Excellent. CSF spaces: Basal cisterns are patent. No extra-axial fluid collections. The ventricles are symmetric in size and shape. Brain: No intracranial bleeds or masses. There is cerebral volume loss for age, with resultant ventricular and sulcal prominence. There are periventricular and deep white matter chronic small vessel ischemic changes. There is intracranial internal carotid artery atherosclerosis. Skull and face: Calvarium and visualized facial bones appear intact, without suspicious lesions. Sinuses: Visualized sinuses and mastoids are clear. IMPRESSION: No acute intracranial abnormality. Dictated by: Magaly Jose M.D. on 05/05/2021 at 21:16 Approved by: Magaly Jose M.D. on 05/05/2021 at 21:16
[2021-05-05] MEDS: TET,DIPH,PERTUSS(ACELL),VAC/PF 0.5 ML SYRINGE IM (23:02)
--- NOTE | 2021-05-05 23:29 | ED_ITS ---
HPI - Fall General Chief Complaint: Fall Stated Complaint: fell, head injury Time Seen by Provider: 05/05/21 22:58 Source: patient Mode of arrival: Wheelchair History of Present Illness HPI Narrative: Patient is a 75-year-old female who is here for evaluation of wounds she sustained week and she states that she fell off a 5 ft ?radha ?she did hit her head on some rocks. There was no loss of consciousness. She is not on blood thinners. She did sustain a rather large laceration to her forehead. She reports no other injuries from the event. Related Data Home Medications Medication Instructions Recorded Confirmed multivit with 1 tab PO DAILY 10/30/19 05/02/21 ozhjlfpr-[id number]-PY-lutein 8 mg iron-400 mcg-300 mcg tablet (Centrum Silver Women) Previous Rx's Medication Instructions Recorded triamcinolone acetonide 0.5 % See Rx Instructions .ROUTE 08/24/20 topical ointment .COMPLEX #15 g citalopram 40 mg tablet See Rx Instructions .ROUTE 11/08/20 .COMPLEX #90 tab zolpidem 10 mg tablet 10 mg PO HS #90 tab 02/28/21 amoxicillin 500 mg tablet 500 mg PO TID 5 Days #15 tab 05/06/21 Allergies Allergy/AdvReac Type Severity Reaction Status Date / Time aspirin [ASPIRIN] Allergy Mild nose bleeds Verified 05/02/21 10:05 cephalexin [From KEFLEX] Allergy Mild Verified 05/02/21 10:05 Review of Systems Constitutional Constitutional: Denies fever(s) and Denies headache(s) Eyes Eyes: Reports system reviewed and no additional complaints, except as documented ENT Ears, Nose, Mouth, and Throat: Denies headache(s) Cardiovascular Cardiovascular: Reports system reviewed and no additional complaints, except as documented Respiratory Respiratory: Reports system reviewed and no additional complaints, except as documented Gastrointestinal Gastrointestinal: Reports system reviewed and no additional complaints, except as documented Musculoskeletal Musculoskeletal: Reports system reviewed and no additional complaints, except as documented Integumentary/Breasts Comments: Laceration to forehead Neurologic Neurologic: Denies headache(s) Hematologic/Lymphatic On Anticoagulants: No Patient History Medical History Actinic keratosis (03/18/17) BCC (basal cell carcinoma of skin) Cataract Family history of abdominal aortic aneurysm (AAA) (03/18/17) 2 para 2 History of basal cell carcinoma (BCC) (03/18/17) History of SCC (squamous cell carcinoma) of skin 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) Hyperlipidemia, mixed Internal hemorrhoids without complication (01/03/17) Neuropathy Normal Papanicolaou smear Obstructive sleep apnea treated with continuous positive airway pressure (CPAP) (01/03/17) Osteopenia (03/01/17) Pneumonia Postmenopausal Restless legs syndrome (01/04/16) RLS (restless legs syndrome) Seasonal affective disorder Sleep initiation dysfunction Vitamin D deficiency (04/19/17) Wears hearing aid in both ears (~05/2017) Surgical History Anesthesia History of cataract surgery (2013) Status post surgical removal of malignant neoplasm of skin (1993) Family History Brother Cancer Diabetes mellitus Hypertension High cholesterol Father Cancer Pancreatic cancer Mother Breast cancer Diabetes mellitus High cholesterol Grandfather No problems noted. Grandmother Breast cancer Grandfather No problems noted. Grandmother No problems noted. Sister No problems noted. Social History other: Belongs to a [employer] group on [facility] Smoking Status: Former smoker Smoking Status: Former smoker alcohol intake frequency: a few times a week Substance Use Type: does not use Exam Initial Vital Signs Initial Vital Signs: Vital Signs Temperature 98.8 F 05/05/21 20:32 Pulse Rate 95 H 05/05/21 20:32 Respiratory Rate 15 05/05/21 20:32 Blood Pressure 162/80 H 05/05/21 20:32 Pulse Oximetry 98 05/05/21 20:32 Const General: cooperative and healthy appearing HENPA Head: laceration Nose: external nose normal Face and sinus: normal facial exam Mouth: oral mucosae normal Eyes General: appearance normal, both eyes and all related structures Chest Chest: normal inspection of the chest Resp Effort & Inspection: normal respiratory effort Cardio Rate: regular rate Skin Other: Patient with a large laceration on her forehead. Left is under. Approximately 20 cm in length and a ?L shaped configuration. Some oozing. No active bleeding. Neuro General: patient alert, patient awake, patient oriented x3 and moves all extremities Gait: normal gait Extrem General: normal to inspection and capillary refill normal Psych Appearance: grossly normal and well kempt Procedures Laceration Repair Laceration 1: Site: scalp (Forehead) Side (If applicable): left Size (cm): 20 Description: flap, irregular and contaminated Depth: simple, single layer Local Anesthetic: lidocaine 1% and with bicarb Amount of anesthesia used (mL): 15 Pre-repair: wound explored, irrigated extensively and deep structures intact Skin layer closed with: nylon Size (cm): 4-0 Number of sutures: 23 Technique: simple, interrupted Scores GCS Hubbell coma scale eye opening: Spontaneous Angelica coma scale verbal response: Orientated Angelica coma scale motor response: Obey commands Hubbell coma scale total score: 15 Nexus Score for C-Spine Focal Neurologic deficit present: No Midline spinal tenderness present: No Altered level of conciousness present: No Intoxication present: No Distracting Injury Present: No Nexus Criteria for C-spine: 0 Course Orders Ordered: ED Orders 05/05/21 20:43 CT head/brain wo con Stat Discontinued Medications Amoxicillin (Amoxicillin 250 Mg Capsule) 500 mg PO NOW ONE Stop: 05/06/21 00:27 Last Admin: 05/06/21 00:32 Dose: 500 mg Documented by: RUSTY Bacitracin (Bacitracin Oint 0.9 Gm Pckt) 1 applic TOP NOW ONE Stop: 05/06/21 00:23 Last Admin: 05/06/21 00:32 Dose: 1 applic Documented by: RUSTY Cephalexin HCl (Cephalexin 250 Mg Capsule) 500 mg PO NOW ONE Stop: 05/06/21 00:23 Last Admin: 05/06/21 00:29 Dose: Not Given Documented by: RUSTY Diphtheria/Tetanus/Acell Pertussis (Tet,Diph,Pertuss(Acell),Vac/Pf 0.5 Ml Syringe) 0.5 ml IM .ONCE ONE Stop: 05/05/21 20:44 Last Admin: 05/05/21 23:02 Dose: 0.5 ml Documented by: ATAYLAMARILIS Lidocaine/Sodium Bicarbonate (Lido 1%/Sod Bicarb 8.4% (10ml) 10 Ml Syringe) 10 ml INJ NOW ONE Stop: 05/05/21 20:45 Last Admin: 05/06/21 00:08 Dose: 10 ml Documented by: RUSTY Lidocaine/Sodium Bicarbonate (Lido 1%/Sod Bicarb 8.4% (10ml) 10 Ml Syringe) 10 ml INJ NOW ONE Stop: 05/05/21 23:31 Last Admin: 05/06/21 00:08 Dose: 10 ml Documented by: RUSTY Vital Signs Vital signs: Vital Signs - 8 hr 05/05/21 20:32 Temperature 98.8 F Pulse Rate 95 H Respiratory Rate 15 Blood Pressure 162/80 H Pulse Oximetry 98 MDM - Fall Imaging Data CT scan - head: Radiologist's Impression: [address] [address] [address] Scan Report Signed Patient: Amanda Cortez MR#: [id number] : 1945 Acct:[id number] Age/Sex: 75 / F Date of Service: 05/05/21 Loc: ED Accession Number: [id number] ?? Procedure: CT head/brain wo con Ordering Provider: Abelardo Matamoros D.O. PROCEDURE:? CT HEAD/BRAIN WO CON ? INDICATIONS:? fall with large lac to head ? TECHNIQUE:? Noncontrast 4.5 mm thick angled axial sections acquired from the foramen magnum to the vertex, with coronal and sagittal reformats.? For radiation dose reduction, the following was used:? automated exposure control, adjustment of mA and/or kV according to patient size.? ? COMPARISON:? None. ? FINDINGS:? Image quality:? Excellent.? ? CSF spaces:? Basal cisterns are patent.? No extra-axial fluid collections.? The ventricles are symmetric in size and shape.? ? Brain:? No intracranial bleeds or masses.? There is cerebral volume loss for age, with resultant ventricular and sulcal prominence.? There are periventricular and deep white matter chronic small vessel ischemic changes.? There is intracranial internal carotid artery atherosclerosis.? ? Skull and face:? Calvarium and visualized facial bones appear intact, without suspicious lesions.? ? Sinuses:? Visualized sinuses and mastoids are clear.? ? IMPRESSION:? No acute intracranial abnormality. ? ? Dictated by: Magaly Jose M.D. on 05/05/2021 at 21:16 ? ? Approved by: Magaly Jose M.D. on 05/05/2021 at 21:16? [facility] Narrative Medical decision making narrative: Patient does have a large laceration to her forehead. Head CT shows no signs of skull fracture. Her cervical spine is cleared by nexus criteria. The periosteum is intact. Patient's wound was irrigated extensively to remove debris from the fall. The laceration was closed as described above. Given the nature of the wound we will start her on antibiotics. Was given a 1st dose here and was sent home with a prescription. She was given care instructions and follow-up instructions with regard to the laceration and the stitch removal. She was given return precautions. She expressed understanding and agreement. Discharge Plan Departure Patient Disposition: Home Clinical Impression: Laceration of scalp Instructions: DI for Laceration Repair Activity Restrictions/Additional Instructions: The stitches that were placed were not absorbable and do need to be removed in 7-10 days. You can go to your primary doctor or the walk-in clinic for this. You can place topical antibiotic ointment over the area. You can also place ice over the area. After 24 hours you can shower like normal. Return to the emergency department for any new or worsening symptoms. Prescriptions: New amoxicillin 500 mg tablet 500 mg PO TID 5 Days Qty: 15 0RF No Action triamcinolone acetonide 0.5 % ointment See Rx Instructions .ROUTE .COMPLEX Qty: 15 2RF Dose Instruction: APPLY TO AFFECTED AREA(S) TWICE EVERY DAY NEEDED Rx Instructions: APPLY TO AFFECTED AREA(S) TWICE EVERY DAY NEEDED citalopram 40 mg tablet See Rx Instructions .ROUTE .COMPLEX Qty: 90 2RF Dose Instruction: TAKE ONE TABLET BY MOUTH ONCE DAILY Rx Instructions: TAKE ONE TABLET BY MOUTH ONCE DAILY zolpidem 10 mg tablet 10 mg PO HS Qty: 90 1RF Centrum Silver Women 8 mg iron-400 mcg-300 mcg tablet 1 tab PO DAILY 0RF Referrals: Dewayne Lopez MD [Primary Care Provider] -
[2021-05-06] MEDS: LIDO 1%/SOD BICARB 8.4% (10ML) 10 ML SYRINGE INJ ×2 (00:08)
[2021-05-06] MEDS: BACITRACIN OINT 0.9 GM PCKT 1 APPLIC TOP (00:32)
[2021-05-06] MEDS: AMOXICILLIN 250 MG CAPSULE 500 MG PO (00:32)
== END 2021-05-06 00:40 | disposition home or self-care (01) ==
PROVIDERS: Emergency Provider Emergency Medicine; Family Provider Family Medicine; PCP Internal Medicine
DX: S01.81XA Laceration without foreign body of other part of head, initial encounter (principal); W15.XXXA Fall from cliff, initial encounter; Z23 Encounter for immunization
CPT/HCPCS: 12055; 70450; 90471; 99284; 90715

== ENCOUNTER → 2021-06-09 11:29 | Outpatient (CLI) | payer MEDICARE, SELFPAY ==
--- NOTE | 2021-06-09 11:33 | DI.RAD.S_ITS ---
PROCEDURE: XR LUMBAR SPINE 2-3V INDICATIONS: Fall TECHNIQUE: 3 views of the lumbar spine were acquired. COMPARISON: None. FINDINGS: Bones: 5 [id number] vertebrae are present. There is normal bony alignment. No vertebral body compression fractures. No suspicious bony lesions. Soft tissues: Overlying bowel gas pattern is normal. No suspicious soft tissue calcifications. IMPRESSION: No fracture. No acute osseous lesion. If symptoms and/or clinical suspicion for pathology persists, evaluation with MRI should be considered for further assessment. Dictated by: Tamia Luis MD, PhD on 06/09/2021 at 12:33 Approved by: Tamia Luis MD, PhD on 06/09/2021 at 12:34
== END ==
PROVIDERS: Family Provider Internal Medicine; PCP Internal Medicine; Referring Provider Nurse Practitioner Critical Care Medicine; Visit Provider Nurse Practitioner Critical Care Medicine
DX: M54.50 Low back pain, unspecified (principal)
CPT/HCPCS: 72100

== ENCOUNTER 2021-08-03 13:00 | Outpatient (RCR) | payer MEDICARE, SELFPAY ==
--- NOTE | 2021-06-07 11:15 | PT.OIE ---
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) Hyperlipidemia, mixed Internal hemorrhoids without complication (01/03/17) Neuropathy Normal Papanicolaou smear Obstructive sleep apnea treated with continuous positive airway pressure (CPAP) (01/03/17) Osteopenia (03/01/17) Pneumonia Postmenopausal Restless legs syndrome (01/04/16) RLS (restless legs syndrome) Seasonal affective disorder Sleep initiation dysfunction Status post surgical removal of malignant neoplasm of skin (1993) Vitamin D deficiency (04/19/17) Wears hearing aid in both ears (~05/2017) Past Surgical History (Last Reviewed 03/08/21 @ 13:00 by Jose Mackenzie MD) Anesthesia History of cataract surgery (2013) Status post surgical removal of malignant neoplasm of skin (1993) Visit Care Team Role Provider Type Dewayne Lopez MD Attending Provider Physician Family Provider Primary Care Provider Referring Provider Specialty: Internal Medicine Address: [address] [place] [address], [address], [facility] Email: [email or web address] Physical Therapy Initial Evaluation PT-OP-A Visit Information Start: 06/06/21 07:44 Freq: Status: Active Protocol: Document 06/07/21 09:05 [facility] (Rec: 06/07/21 11:14 [facility] [id number]) Out-Patient Physical Therapy Visit Information Visit Information Visit Type Initial Evaluation Visit Note 03/13 Visit Start Time 09:10 Visit Stop Time 09:52 Total Visit Minutes 42 Visit Number 1 Number of CREATIVE RECRUITER Visits 0 PT-OP-B Current Condition Start: 06/06/21 07:44 Freq: Status: Active Protocol: Document 06/07/21 09:05 [facility] (Rec: 06/07/21 11:14 [facility] [id number]) Current Condition History of Current Condition Onset Date 1 month ago Current Complaints LBP, head pain History of Current Condition Pt reports she fell off a radha and hit her head. It was dark and she had to go along side of her house to get in and got up to the area slo[place] could climb into the garage and was about 10ft up. She was walking along the radha edge in the dark and fell on head and L hip and knees and slid down the rest of the radha. She went over to her neighbors and they brought her to the ER where they did a head CT and she didn't have a skull fracture or brain bleed. This was 1 month ago. She reports LBP is better but did garden and it inc pain. She has rested on her back by laying flat. She stopped doing her exercsies for balance d/t pain. She had no bruising to her back but has had a lot of pain. She had been seeing Cris in the fall for balance and after 6 weeks, she felt like a new person and had not had a fall until she had this fall. Pt reports her biggest problem right now is depression especially since the fall. She has slos lost 2 friends in hospice care in the past week. She has difficulty making herself get going. Pt does report memory was a problem prior to fall and she did a screen and was given tools to help but it is way worse since the fall. Pt reports she typically likes to make art, garden, cook, go for long walks, dosen at 2 art museums where she does tours, watch [employer]. She has only driven 3 times since this fall. She has been exhausted on days that she does outings like go to the store then visit friends. Pt reports she will be watching TV and she feels a little clammy and sweaty. Treatment Goals Patient/Caregiver Goals be able to garden, get backt o balance exercises PT-OP-C Subjective Start: 06/06/21 07:44 Freq: Status: Active Protocol: Document 06/07/21 09:05 [facility] (Rec: 06/07/21 11:14 [facility] [id number]) Patient Questionnaires Oswestry Low Back Index Oswestry Score 13/50 OP-PT Pain Assessment Location LBP Pain Location Details L SI & Pelvis region Intensity 7 Scale Used after gardening Description Sharp Frequency Intermittent Pain Aggravating Factors Changing Position,Sitting, Bending,Lifting Other Pain Aggravating Factors gardening Pain Alleviating Factors Heat Other Pain Alleviating Factors laying down PT-OP-G Mobility & Gait Start: 06/06/21 07:44 Freq: Status: Active Protocol: Document 06/07/21 09:05 [facility] (Rec: 06/07/21 11:14 [facility] [id number]) OP Gait Assessment Comments Gait Comments Pt amb w/evidence for imbalance w/dec DF and heavy foot slap during gait, dec stride length and no push off B and dec B wt acceptance PT-OP-J Posture/Palpation/Skin Start: 06/06/21 07:44 Freq: Status: Active Protocol: Document 06/07/21 09:05 [facility] (Rec: 06/07/21 11:14 [facility] [id number]) Posture Evaluation [facility] Postural Classification System [facility] Postural Classifications Posterior/Anterior Elbow Flexion Test 1 Lumbar Protective Mechanism Left AP 0 Lumbar Protective Mechanism Right AP 0 Lumbar Protective Mechanism Left PA 0 Lumbar Protective Mechanism Right PA 0 Comments Posture Comments inc kyphosis, R iliac crest higher, equal greater trochanters, L femoral IR PT-OP-K Range of Motion Start: 06/06/21 07:44 Freq: Status: Active Protocol: Document 06/07/21 09:05 [facility] (Rec: 06/07/21 11:14 [facility] [id number]) Lumbar Spine Range of Motion Lumbar Spine Active Percentage Flexion 40 Extension 50 Rotation Left 50 Rotation Right 80 Lateral Flexion Left 80 Lateral Flexion Right 80 Comments pain flex PT-OP-L Special Tests Start: 06/06/21 07:44 Freq: Status: Active Protocol: Document 06/07/21 09:05 [facility] (Rec: 06/07/21 11:14 [facility] [id number]) Special Tests Lumbar Spine Special Tests Slump Test Results positive PT-OP-M Strength Start: 06/06/21 07:44 Freq: Status: Active Protocol: Document 06/07/21 09:05 [facility] (Rec: 06/07/21 11:14 [facility] [id number]) Hip Strength Hip Manual Muscle Testing Right Flexion (L2) 4 Good Extension (S1) 4- Good- Abduction 4- Good- External Rotation 4 Good Internal Rotation 4 Good Comments pain at pubic symphysis Left Flexion (L2) 3+ Fair+ Extension (S1) 3+ Fair+ Abduction 3+ Fair+ External Rotation 3+ Fair+ Internal Rotation 3+ Fair+ Knee Strength Knee Manual Muscle Testing Right Flexion (S2) 5 Normal Extension (L3) 5 Normal Left Flexion (S2) 4- Good- Extension (L3) 4- Good- Ankle/Foot Strength Ankle and Foot Manual Muscle Testing Right Dorsiflexion (L4) 5 Normal Plantarflexion (S1) 5 Normal Left Dorsiflexion (L4) 5 Normal Plantarflexion (S1) 4 Good Comments pain w/DF; PF tested seated B PT-OP-Q Treatments Start: 06/06/21 07:44 Freq: Status: Active Protocol: Document 06/07/21 09:05 [facility] (Rec: 06/07/21 11:14 [facility] [id number]) Self-Care/Home Management Treatment Education Other Education edu to pt to consider trauma counseling and LEATHER BELT SHAPER and what those areas can help w/in order to improve her function. Edu that PT for head may be helpful and can ask MD for referal for this. Edu to pt that PT does have concern re: possible compression fracture or injury to LB d/t fall so will contact MD re: X-ray as we will be otherwise limited in treatment PT-OP-T Assessment and Plan Start: 06/06/21 07:44 Freq: Status: Active Protocol: Document 06/07/21 09:05 [facility] (Rec: 06/07/21 11:14 [facility] [id number]) Physical Therapy Assessment Rehab Potential Rehabilitation Potential Good Evaluation Complexity Number of Personal Factors/Comorbidities 3 or More Number of Body Systems Impaired 4 or More Clinical Presentation at Evaluation Stable Impairments Impairments Activity Tolerance,Balance, Functional Activities, Functional Mobility,Gait,Pain, Posture,ROM,Soft Tissue Mobility,Strength,Transfers Goals strength Short Term Goal (STG) Pt will be indep w/HEP STG Duration 07/07/21 Prison Goal (LTG) Pt will score at least 4+/5 on all LE MMT and 3/5 in all planes on LPM to show improved staiblity in order to allow pt to do typical activities easier. LTG Duration 08/07/21 activities Associate Media Director Goal (LTG) Pt will be able to garden and do typical house chores w/o difficulty or pain. LTG Duration 08/07/21 gait Short Term Goal (STG) Pt will show good gait pattern w/good push off when ambulating and showing dec instability in gait. STG Duration 07/07/21 Prison Goal (LTG) Pt will be able to go for long walks without inc pain or feeling off balance. LTG Duration 08/07/21 FELICIA Impairment 13/50 Short Term Goal (STG) Pt will report no greater than 8/50 to show improved function and return to typical activities. Associate Media Director Goal (LTG) Pt will report no greater than 2/50 to show improved function and return to typical activities. Assessment Summary Assessment Pt presents w/LBP and head pain after a fall from [address] [place] [address] when trying to get into her house. She has had noted also inc depression and memory issues since this fall and has not started any treatments re: these areas and was recommended counseling w/ trauma focus and LEATHER BELT SHAPER for memory. She is very receptive. At this time, pt appears more unstable during gait w/dec stride length and heavy foot slap and dec overall push off B. She is unable to do much gardening without significant pain and even simply bending to brass pickler her purse is difficult for her. 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 At this time, she has dec LE strength (L weaker than R) and has dec core stability and activation. Pt would benefit from skilled PT to address these deficits to improve her back pain and mobility to return her to her typical lifestyle w/o pain. MD was called re: asking for referral for back Xray, PT referral for head pain and LEATHER BELT SHAPER for memory. Physical Therapy Plan Frequency and Duration Frequency of Treatment 2x/Week Duration of Treatment 2 months Plan of Care Start Date 06/07/21 Plan of Care End Date 08/07/21 Therapeutic Interventions Therapeutic Interventions Aquatic Therapy,Balance Training,Gait Training,Home Exercise Program,Joint Mobilizations,Manual Therapy, Neuromuscular Re-education, Orthotic/Prosthetic Management ,Patient/Caregiver Education, Self-Care/Home Management,Soft Tissue Mobilization,Taping, Therapeutic Activities, Therapeutic Exercises Modalities Cold Pack/Ice Massage,Electric Stimulation,Hot Packs, Traction- Mechanical, Ultrasound Next Visit Focus/Plan Next Note Type Treatment Note Next Visit Plan start supine core stability HEP & teach gentle stretches piriformis, STM to LB
--- NOTE | 2021-06-07 11:15 | PT.OPPOC ---
Physical, Occupational & Speech Therapy At [facility] Current Diagnoses Low back pain, unspecified (06/07/21) Visit Care Team Role Provider Type Dewayne Lopez MD Attending Provider Physician Family Provider Primary Care Provider Referring Provider Specialty: Internal Medicine Address: [address] [place] [address], [address], [address] Email: [email or web address] Plan Of Care PT-OP-T Assessment and Plan Start: 06/06/21 07:44 Freq: Status: Active Protocol: Document 06/07/21 09:05 [facility] (Rec: 06/07/21 11:14 [facility] [id number]) Physical Therapy Assessment Rehab Potential Rehabilitation Potential Good Evaluation Complexity Number of Personal Factors/Comorbidities 3 or More Number of Body Systems Impaired 4 or More Clinical Presentation at Evaluation Stable Impairments Impairments Activity Tolerance,Balance, Functional Activities, Functional Mobility,Gait,Pain, Posture,ROM,Soft Tissue Mobility,Strength,Transfers Goals strength Short Term Goal (STG) Pt will be indep w/HEP STG Duration 07/07/21 Retirement Goal (LTG) Pt will score at least 4+/5 on all LE MMT and 3/5 in all planes on LPM to show improved staiblity in order to allow pt to do typical activities easier. LTG Duration 08/07/21 activities Shake Cutter Goal (LTG) Pt will be able to garden and do typical house chores w/o difficulty or pain. LTG Duration 08/07/21 gait Short Term Goal (STG) Pt will show good gait pattern w/good push off when ambulating and showing dec instability in gait. STG Duration 07/07/21 Retirement Goal (LTG) Pt will be able to go for long walks without inc pain or feeling off balance. LTG Duration 08/07/21 FELICIA Impairment 13/50 Short Term Goal (STG) Pt will report no greater than 8/50 to show improved function and return to typical activities. Retirement Goal (LTG) Pt will report no greater than 2/50 to show improved function and return to typical activities. Assessment Summary Assessment Pt presents w/LBP and head pain after a fall from [address] [place] [address] when trying to get into her house. She has had noted also inc depression and memory issues since this fall and has not started any treatments re: these areas and was recommended counseling w/ trauma focus and EDI DEVELOPER for memory. She is very receptive. At this time, pt appears more unstable during gait w/dec stride length and heavy foot slap and dec overall push off B. She is unable to do much gardening without significant pain and even simply bending to spanish moss picker her purse is difficult for her. 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 At this time, she has dec LE strength (L weaker than R) and has dec core stability and activation. Pt would benefit from skilled PT to address these deficits to improve her back pain and mobility to return her to her typical lifestyle w/o pain. MD was called re: asking for referral for back Xray, PT referral for head pain and EDI DEVELOPER for memory. Physical Therapy Plan Frequency and Duration Frequency of Treatment 2x/Week Duration of Treatment 2 months Plan of Care Start Date 06/07/21 Plan of Care End Date 08/07/21 Therapeutic Interventions Therapeutic Interventions Aquatic Therapy,Balance Training,Gait Training,Home Exercise Program,Joint Mobilizations,Manual Therapy, Neuromuscular Re-education, Orthotic/Prosthetic Management ,Patient/Caregiver Education, Self-Care/Home Management,Soft Tissue Mobilization,Taping, Therapeutic Activities, Therapeutic Exercises Modalities Cold Pack/Ice Massage,Electric Stimulation,Hot Packs, Traction- Mechanical, Ultrasound Next Visit Focus/Plan Next Note Type Treatment Note Next Visit Plan start supine core stability HEP & teach gentle stretches piriformis, STM to LB Plan of Care Dates Plan of Care Start Date 06/07/21 Plan of Care End Date 08/07/21 Electronically Signed by: Peg Belle, PT 06/07/21 1207 Please Sign and Return: I have reviewed this Plan of Care and certify that the skilled therapy services above are required to meet the patient?s needs. Physician Signature Date Printed Name and Credentials Clinical Instructor Signature Printed Name and Credentials
--- NOTE | 2021-06-12 14:48 | PT.OTN ---
Current Diagnoses Low back pain, unspecified (06/12/21) Physical Therapy Treatment Note PT-OP-A Visit Information Start: 06/06/21 07:44 Freq: Status: Active Protocol: Document 06/12/21 13:57 [facility] (Rec: 06/12/21 14:48 [facility] [id number]) Out-Patient Physical Therapy Visit Information Visit Information Visit Type Treatment Note Visit Note 04/13 Visit Start Time 13:51 Visit Stop Time 14:30 Total Visit Minutes 39 Visit Number 2 Number of POWER SHOVEL ENGINEER Visits 0 PT-OP-B Current Condition Start: 06/06/21 07:44 Freq: Status: Active Protocol: Document 06/07/21 09:05 [facility] (Rec: 06/07/21 11:14 [facility] [id number]) Current Condition History of Current Condition Onset Date 1 month ago Current Complaints LBP, head pain History of Current Condition Pt reports she fell off a radha and hit her head. It was dark and she had to go along side of her house to get in and got up to the area sloane wes[place] could climb into the garage and was about 10ft up. She was walking along the radha edge in the dark and fell on head and L hip and knees and slid down the rest of the radha. She went over to her neighbors and they brought her to the ER where they did a head CT and she didn't have a skull fracture or brain bleed. This was 1 month ago. She reports LBP is better but did garden and it inc pain. She has rested on her back by laying flat. She stopped doing her exercsies for balance d/t pain. She had no bruising to her back but has had a lot of pain. She had been seeing Cris in the fall for balance and after 6 weeks, she felt like a new person and had not had a fall until she had this fall. Pt reports her biggest problem right now is depression especially since the fall. She has slos lost 2 friends in hospice care in the past week. She has difficulty making herself get going. Pt does report memory was a problem prior to fall and she did a screen and was given tools to help but it is way worse since the fall. Pt reports she typically likes to make art, garden, cook, go for long walks, dosen at 2 art museums where she does tours, watch [employer]. She has only driven 3 times since this fall. She has been exhausted on days that she does outings like go to the store then visit friends. Pt reports she will be watching TV and she feels a little clammy and sweaty. Treatment Goals Patient/Caregiver Goals be able to garden, get backt o balance exercises PT-OP-C Subjective Start: 06/06/21 07:44 Freq: Status: Active Protocol: Document 06/12/21 13:57 [facility] (Rec: 06/12/21 14:48 [facility] [id number]) OP-PT Subjective Patient Comments Patient Comments Pt reports she got set up with a new MD to start in 1 month. She called clinic and got set up for Xray. Xray negative. Pt reports this info has made her feel better overall. Seh gardened for 1 hr on Sat and used a lidocane patch to help. PT-OP-G Mobility & Gait Start: 06/06/21 07:44 Freq: Status: Active Protocol: Document 06/07/21 09:05 [facility] (Rec: 06/07/21 11:14 [facility] [id number]) OP Gait Assessment Comments Gait Comments Pt amb w/evidence for imbalance w/dec DF and heavy foot slap during gait, dec stride length and no push off B and dec B wt acceptance PT-OP-J Posture/Palpation/Skin Start: 06/06/21 07:44 Freq: Status: Active Protocol: Document 06/07/21 09:05 [facility] (Rec: 06/07/21 11:14 [facility] [id number]) Posture Evaluation [facility] Postural Classification System [facility] Postural Classifications Posterior/Anterior Elbow Flexion Test 1 Lumbar Protective Mechanism Left AP 0 Lumbar Protective Mechanism Right AP 0 Lumbar Protective Mechanism Left PA 0 Lumbar Protective Mechanism Right PA 0 Comments Posture Comments inc kyphosis, R iliac crest higher, equal greater trochanters, L femoral IR PT-OP-K Range of Motion Start: 06/06/21 07:44 Freq: Status: Active Protocol: Document 06/07/21 09:05 [facility] (Rec: 06/07/21 11:14 [facility] [id number]) Lumbar Spine Range of Motion Lumbar Spine Active Percentage Flexion 40 Extension 50 Rotation Left 50 Rotation Right 80 Lateral Flexion Left 80 Lateral Flexion Right 80 Comments pain flex PT-OP-L Special Tests Start: 06/06/21 07:44 Freq: Status: Active Protocol: Document 06/07/21 09:05 [facility] (Rec: 06/07/21 11:14 [facility] [id number]) Special Tests Lumbar Spine Special Tests Slump Test Results positive PT-OP-M Strength Start: 06/06/21 07:44 Freq: Status: Active Protocol: Document 06/07/21 09:05 [facility] (Rec: 06/07/21 11:14 [facility] [id number]) Hip Strength Hip Manual Muscle Testing Right Flexion (L2) 4 Good Extension (S1) 4- Good- Abduction 4- Good- External Rotation 4 Good Internal Rotation 4 Good Comments pain at pubic symphysis Left Flexion (L2) 3+ Fair+ Extension (S1) 3+ Fair+ Abduction 3+ Fair+ External Rotation 3+ Fair+ Internal Rotation 3+ Fair+ Knee Strength Knee Manual Muscle Testing Right Flexion (S2) 5 Normal Extension (L3) 5 Normal Left Flexion (S2) 4- Good- Extension (L3) 4- Good- Ankle/Foot Strength Ankle and Foot Manual Muscle Testing Right Dorsiflexion (L4) 5 Normal Plantarflexion (S1) 5 Normal Left Dorsiflexion (L4) 5 Normal Plantarflexion (S1) 4 Good Comments pain w/DF; PF tested seated B PT-OP-Q Treatments Start: 06/06/21 07:44 Freq: Status: Active Protocol: Document 06/12/21 13:57 [facility] (Rec: 06/12/21 14:48 [facility] [id number]) Therapeutic Exercises Supine Exercises stretch Supine Exercise Name piriformis Side bilateral Reps/Minutes 30 sec TAbd Supine Exercise Name 1. alt may 2. BKFO Side bilateral Reps/Minutes 12 ea pelvic tilt Reps/Minutes 6 Comments stopped d/t thoracic pain Other Exercises cat/camel Reps/Minutes 15 nathaly pose Side bilateral Reps/Minutes 30 sec Manual Therapy Treatment Soft Tissue Mobilization glutes Body Location along L sacral border Mobilization Type Myofascial Release,Rolling, Strumming,Sustained Pressure Intensity/Depth Moderate Body Position Sidelying lumbar Body Location ES R>L & QL L>R Mobilization Type Myofascial Release,Rolling, Strumming,Sustained Pressure Intensity/Depth Moderate Body Position Sidelying Comments w/post dep/ant elevation Joint Mobilizations lumbar Comments 1. gapping FM w/post dep L4 & L5 2. transverse R L2-4 FM w/ant elevation PT-OP-T Assessment and Plan Start: 06/06/21 07:44 Freq: Status: Active Protocol: Document 06/12/21 13:57 [facility] (Rec: 06/12/21 14:48 [facility] [id number]) Physical Therapy Assessment Goals strength Short Term Goal (STG) Pt will be indep w/HEP STG Duration 07/07/21 Education Rn Goal (LTG) Pt will score at least 4+/5 on all LE MMT and 3/5 in all planes on LPM to show improved staiblity in order to allow pt to do typical activities easier. LTG Duration 08/07/21 activities Senior Living Goal (LTG) Pt will be able to garden and do typical house chores w/o difficulty or pain. LTG Duration 08/07/21 gait Short Term Goal (STG) Pt will show good gait pattern w/good push off when ambulating and showing dec instability in gait. STG Duration 07/07/21 Education Rn Goal (LTG) Pt will be able to go for long walks without inc pain or feeling off balance. LTG Duration 08/07/21 FELICIA Impairment 13/50 Short Term Goal (STG) Pt will report no greater than 8/50 to show improved function and return to typical activities. Education Rn Goal (LTG) Pt will report no greater than 2/50 to show improved function and return to typical activities. Assessment Summary Assessment Pt did well with exercises today with cues throughout for core activation. She had pain in thoracic w/pelvic tilts in supine likely d/t pt also trying to lift shoulders and engaging in tspine flex but tolerated well in quadruped. She felt good after manual Physical Therapy Plan Frequency and Duration Frequency of Treatment 2x/Week Duration of Treatment 2 months Plan of Care Start Date 06/07/21 Plan of Care End Date 08/07/21 Next Visit Focus/Plan Next Note Type Treatment Note Next Visit Plan review exercises, soft tissue and joint mobilizations
--- NOTE | 2021-06-15 15:18 | PT.OTN ---
Current Diagnoses Low back pain, unspecified (06/15/21) Physical Therapy Treatment Note PT-OP-A Visit Information Start: 06/06/21 07:44 Freq: Status: Active Protocol: Document 06/15/21 14:33 [facility] (Rec: 06/15/21 15:18 [facility] [id number]) Out-Patient Physical Therapy Visit Information Visit Information Visit Type Treatment Note Visit Note 05/11 Visit Start Time 14:34 Visit Stop Time 15:14 Total Visit Minutes 40 Visit Number 3 Number of AIR AND WATER FILLER Visits 0 PT-OP-B Current Condition Start: 06/06/21 07:44 Freq: Status: Active Protocol: Document 06/07/21 09:05 [facility] (Rec: 06/07/21 11:14 [facility] [id number]) Current Condition History of Current Condition Onset Date 1 month ago Current Complaints LBP, head pain History of Current Condition Pt reports she fell off a radha and hit her head. It was dark and she had to go along side of her house to get in and got up to the area [place] could climb into the garage and was about 10ft up. She was walking along the radha edge in the dark and fell on head and L hip and knees and slid down the rest of the radha. She went over to her neighbors and they brought her to the ER where they did a head CT and she didn't have a skull fracture or brain bleed. This was 1 month ago. She reports LBP is better but did garden and it inc pain. She has rested on her back by laying flat. She stopped doing her exercsies for balance d/t pain. She had no bruising to her back but has had a lot of pain. She had been seeing Cris in the fall for balance and after 6 weeks, she felt like a new person and had not had a fall until she had this fall. Pt reports her biggest problem right now is depression especially since the fall. She has slos lost 2 friends in hospice care in the past week. She has difficulty making herself get going. Pt does report memory was a problem prior to fall and she did a screen and was given tools to help but it is way worse since the fall. Pt reports she typically likes to make art, garden, cook, go for long walks, dosen at 2 art museums where she does tours, watch [employer]. She has only driven 3 times since this fall. She has been exhausted on days that she does outings like go to the store then visit friends. Pt reports she will be watching TV and she feels a little clammy and sweaty. Treatment Goals Patient/Caregiver Goals be able to garden, get backt o balance exercises PT-OP-C Subjective Start: 06/06/21 07:44 Freq: Status: Active Protocol: Document 06/15/21 14:33 [facility] (Rec: 06/15/21 15:18 [facility] [id number]) OP-PT Subjective Patient Comments Patient Comments Pt reports going into the garden on saturday and working for about 1 hour and pain was about 5/10 after. Has been feeling her balance problem this week. PT-OP-G Mobility & Gait Start: 06/06/21 07:44 Freq: Status: Active Protocol: Document 06/07/21 09:05 [facility] (Rec: 06/07/21 11:14 [facility] [id number]) OP Gait Assessment Comments Gait Comments Pt amb w/evidence for imbalance w/dec DF and heavy foot slap during gait, dec stride length and no push off B and dec B wt acceptance PT-OP-J Posture/Palpation/Skin Start: 06/06/21 07:44 Freq: Status: Active Protocol: Document 06/07/21 09:05 [facility] (Rec: 06/07/21 11:14 [facility] [id number]) Posture Evaluation [facility] Postural Classification System [facility] Postural Classifications Posterior/Anterior Elbow Flexion Test 1 Lumbar Protective Mechanism Left AP 0 Lumbar Protective Mechanism Right AP 0 Lumbar Protective Mechanism Left PA 0 Lumbar Protective Mechanism Right PA 0 Comments Posture Comments inc kyphosis, R iliac crest higher, equal greater trochanters, L femoral IR PT-OP-K Range of Motion Start: 06/06/21 07:44 Freq: Status: Active Protocol: Document 06/07/21 09:05 [facility] (Rec: 06/07/21 11:14 [facility] [id number]) Lumbar Spine Range of Motion Lumbar Spine Active Percentage Flexion 40 Extension 50 Rotation Left 50 Rotation Right 80 Lateral Flexion Left 80 Lateral Flexion Right 80 Comments pain flex PT-OP-L Special Tests Start: 06/06/21 07:44 Freq: Status: Active Protocol: Document 06/07/21 09:05 [facility]07[id number] Special Tests Lumbar Spine Special Tests Slump Test Results positive PT-OP-M Strength Start: 06/06/21 07:44 Freq: Status: Active Protocol: Document 06/07/21 09:05 [facility] (Rec: 06/07/21 11:14 [facility] [id number]) Hip Strength Hip Manual Muscle Testing Right Flexion (L2) 4 Good Extension (S1) 4- Good- Abduction 4- Good- External Rotation 4 Good Internal Rotation 4 Good Comments pain at pubic symphysis Left Flexion (L2) 3+ Fair+ Extension (S1) 3+ Fair+ Abduction 3+ Fair+ External Rotation 3+ Fair+ Internal Rotation 3+ Fair+ Knee Strength Knee Manual Muscle Testing Right Flexion (S2) 5 Normal Extension (L3) 5 Normal Left Flexion (S2) 4- Good- Extension (L3) 4- Good- Ankle/Foot Strength Ankle and Foot Manual Muscle Testing Right Dorsiflexion (L4) 5 Normal Plantarflexion (S1) 5 Normal Left Dorsiflexion (L4) 5 Normal Plantarflexion (S1) 4 Good Comments pain w/DF; PF tested seated B PT-OP-Q Treatments Start: 06/06/21 07:44 Freq: Status: Active Protocol: Document 06/15/21 14:33 [facility] (Rec: 06/15/21 15:18 [facility] [id number]) Gym Equipment Shuttle Balance red clips Comments fwd& side: WBOS & NBOS fwd: staggerd stance B Therapeutic Exercises Supine Exercises stretch Supine Exercise Name piriformis Side bilateral Reps/Minutes 30 sec TAbd Supine Exercise Name 1. alt may 2. BKFO Side bilateral Reps/Minutes 12 ea Sidelying Exercises clamshell Side bilateral Reps/Minutes 15 Other Exercises quadruped Other Exercise Name alt UE flex Side bilateral Reps/Minutes 10 cat/camel Reps/Minutes 15 nathaly pose Side bilateral Reps/Minutes 30 sec Manual Therapy Treatment Soft Tissue Mobilization lumbar Body Location L ES Mobilization Type Myofascial Release,Rolling, Strumming,Sustained Pressure Intensity/Depth Moderate Body Position Prone Comments w/knee flex Joint Mobilizations innominate Joint R Direction ER FM hip Joint R Direction on axis ER FM Neuro Re-Education Treatment Balance Activities SLS Details B trials w/1 finger tandem stance Comments 1. stagggered stance B w/EC 2. tandem stance B PT-OP-T Assessment and Plan Start: 06/06/21 07:44 Freq: Status: Active Protocol: Document 06/15/21 14:33 [facility] (Rec: 06/15/21 15:18 [facility] [id number]) Physical Therapy Assessment Goals strength Short Term Goal (STG) Pt will be indep w/HEP STG Duration 07/07/21 Skilled Nursing Goal (LTG) Pt will score at least 4+/5 on all LE MMT and 3/5 in all planes on LPM to show improved staiblity in order to allow pt to do typical activities easier. LTG Duration 08/07/21 activities Demolition Hammer Operator Goal (LTG) Pt will be able to garden and do typical house chores w/o difficulty or pain. LTG Duration 08/07/21 gait Short Term Goal (STG) Pt will show good gait pattern w/good push off when ambulating and showing dec instability in gait. STG Duration 07/07/21 Skilled Nursing Goal (LTG) Pt will be able to go for long walks without inc pain or feeling off balance. LTG Duration 08/07/21 FELICIA Impairment 13/50 Short Term Goal (STG) Pt will report no greater than 8/50 to show improved function and return to typical activities. Demolition Hammer Operator Goal (LTG) Pt will report no greater than 2/50 to show improved function and return to typical activities. Assessment Summary Assessment Pt did well with exerises and requried cues for supien core exercises but otherwise did well with exercise performance of HEP. She was challenged by all balance activities. Physical Therapy Plan Frequency and Duration Frequency of Treatment 2x/Week Duration of Treatment 2 months Plan of Care Start Date 06/07/21 Plan of Care End Date 08/07/21 Next Visit Focus/Plan Next Note Type Treatment Note Next Visit Plan review core and progress core and advance balance
--- NOTE | 2021-06-19 14:44 | PT.OTN ---
Current Diagnoses Low back pain, unspecified (06/19/21) Physical Therapy Treatment Note PT-OP-A Visit Information Start: 06/06/21 07:44 Freq: Status: Active Protocol: Document 06/19/21 13:26 [facility] (Rec: 06/19/21 14:44 [facility] [id number]) Out-Patient Physical Therapy Visit Information Visit Information Visit Type Treatment Note Visit Note 06/11 Visit Start Time 13:50 Visit Stop Time 14:33 Total Visit Minutes 43 Visit Number 4 Number of PHARMACEUTICAL OPERATOR Visits 0 PT-OP-B Current Condition Start: 06/06/21 07:44 Freq: Status: Active Protocol: Document 06/07/21 09:05 [facility] (Rec: 06/07/21 11:14 [facility] [id number]) Current Condition History of Current Condition Onset Date 1 month ago Current Complaints LBP, head pain History of Current Condition Pt reports she fell off a radha and hit her head. It was dark and she had to go along side of her house to get in and got up to the area sl[place] could climb into the garage and was about 10ft up. She was walking along the radha edge in the dark and fell on head and L hip and knees and slid down the rest of the radha. She went over to her neighbors and they brought her to the ER where they did a head CT and she didn't have a skull fracture or brain bleed. This was 1 month ago. She reports LBP is better but did garden and it inc pain. She has rested on her back by laying flat. She stopped doing her exercsies for balance d/t pain. She had no bruising to her back but has had a lot of pain. She had been seeing Cris in the fall for balance and after 6 weeks, she felt like a new person and had not had a fall until she had this fall. Pt reports her biggest problem right now is depression especially since the fall. She has slos lost 2 friends in hospice care in the past week. She has difficulty making herself get going. Pt does report memory was a problem prior to fall and she did a screen and was given tools to help but it is way worse since the fall. Pt reports she typically likes to make art, garden, cook, go for long walks, dosen at 2 art museums where she does tours, watch [employer]. She has only driven 3 times since this fall. She has been exhausted on days that she does outings like go to the store then visit friends. Pt reports she will be watching TV and she feels a little clammy and sweaty. Treatment Goals Patient/Caregiver Goals be able to garden, get backt o balance exercises PT-OP-C Subjective Start: 06/06/21 07:44 Freq: Status: Active Protocol: Document 06/19/21 13:26 [facility] (Rec: 06/19/21 14:44 [facility] [id number]) OP-PT Subjective Patient Comments Patient Comments Pt reports BRICENO after last session and took a nap after. She is feeling more enthusiastic for doing things but its not everyday she feels good. She did garden for an hour on saturday and do an hour walk. PT-OP-G Mobility & Gait Start: 06/06/21 07:44 Freq: Status: Active Protocol: Document 06/07/21 09:05 [facility] (Rec: 06/07/21 11:14 [facility] [id number]) OP Gait Assessment Comments Gait Comments Pt amb w/evidence for imbalance w/dec DF and heavy foot slap during gait, dec stride length and no push off B and dec B wt acceptance PT-OP-J Posture/Palpation/Skin Start: 06/06/21 07:44 Freq: Status: Active Protocol: Document 06/07/21 09:05 [facility] (Rec: 06/07/21 11:14 [facility] [id number]) Posture Evaluation Hoang Postural Classification System Hoang Postural Classifications Posterior/Anterior Elbow Flexion Test 1 Lumbar Protective Mechanism Left AP 0 Lumbar Protective Mechanism Right AP 0 Lumbar Protective Mechanism Left PA 0 Lumbar Protective Mechanism Right PA 0 Comments Posture Comments inc kyphosis, R iliac crest higher, equal greater trochanters, L femoral IR PT-OP-K Range of Motion Start: 06/06/21 07:44 Freq: Status: Active Protocol: Document 06/07/21 09:05 [facility] (Rec: 06/07/21 11:14 [facility] [id number]) Lumbar Spine Range of Motion Lumbar Spine Active Percentage Flexion 40 Extension 50 Rotation Left 50 Rotation Right 80 Lateral Flexion Left 80 Lateral Flexion Right 80 Comments pain flex PT-OP-L Special Tests Start: 06/06/21 07:44 Freq: Status: Active Protocol: Document 06/07/21 09:05 [facility] (Rec: 06/07/21 11:14 [facility] [id number]) Special Tests Lumbar Spine Special Tests Slump Test Results positive PT-OP-M Strength Start: 06/06/21 07:44 Freq: Status: Active Protocol: Document 06/07/21 09:05 [facility] (Rec: 06/07/21 11:14 [facility] [id number]) Hip Strength Hip Manual Muscle Testing Right Flexion (L2) 4 Good Extension (S1) 4- Good- Abduction 4- Good- External Rotation 4 Good Internal Rotation 4 Good Comments pain at pubic symphysis Left Flexion (L2) 3+ Fair+ Extension (S1) 3+ Fair+ Abduction 3+ Fair+ External Rotation 3+ Fair+ Internal Rotation 3+ Fair+ Knee Strength Knee Manual Muscle Testing Right Flexion (S2) 5 Normal Extension (L3) 5 Normal Left Flexion (S2) 4- Good- Extension (L3) 4- Good- Ankle/Foot Strength Ankle and Foot Manual Muscle Testing Right Dorsiflexion (L4) 5 Normal Plantarflexion (S1) 5 Normal Left Dorsiflexion (L4) 5 Normal Plantarflexion (S1) 4 Good Comments pain w/DF; PF tested seated B PT-OP-Q Treatments Start: 06/06/21 07:44 Freq: Status: Active Protocol: Document 06/19/21 13:26 [facility] (Rec: 06/19/21 14:44 [facility] [id number]) Gym Equipment Shuttle Balance red clips Comments fwd& side: WBOS & NBOS fwd: staggerd stance B Therapeutic Ball sitting Ball Size/Color 65 cm Body Position Sitting Reps/Duration 10 Comments march w/focus on core Therapeutic Exercises Supine Exercises TAbd Supine Exercise Name 1. alt march at same time 2. BKFO Side bilateral Reps/Minutes 10 ea Sidelying Exercises clamshell Side bilateral Reps/Minutes 10 Other Exercises sit to stand Other Exercise Name no hands; cues for control Side bilateral Reps/Minutes 12 Manual Therapy Treatment Soft Tissue Mobilization lumbar Body Location B ES Mobilization Type Myofascial Release,Rolling, Strumming,Sustained Pressure Intensity/Depth Moderate Comments prone L>R strumming; seated cervical to lumbar paraspinals rolling w/pt cervical, thoracic, lumbar sequential flex Joint Mobilizations innominate Joint R Direction ER FM hip Joint R Direction on axis ER FM lumbar Comments 1. L4 & L5 UPA L PT-OP-T Assessment and Plan Start: 06/06/21 07:44 Freq: Status: Active Protocol: Document 06/19/21 13:26 [facility] (Rec: 06/19/21 14:44 [facility] [id number]) Physical Therapy Assessment Goals strength Short Term Goal (STG) Pt will be indep w/HEP STG Duration 07/07/21 Correction Goal (LTG) Pt will score at least 4+/5 on all LE MMT and 3/5 in all planes on LPM to show improved staiblity in order to allow pt to do typical activities easier. LTG Duration 08/07/21 activities Correction Goal (LTG) Pt will be able to garden and do typical house chores w/o difficulty or pain. LTG Duration 08/07/21 gait Short Term Goal (STG) Pt will show good gait pattern w/good push off when ambulating and showing dec instability in gait. STG Duration 07/07/21 Correction Goal (LTG) Pt will be able to go for long walks without inc pain or feeling off balance. LTG Duration 08/07/21 FELICIA Impairment 13/50 Short Term Goal (STG) Pt will report no greater than 8/50 to show improved function and return to typical activities. Correction Goal (LTG) Pt will report no greater than 2/50 to show improved function and return to typical activities. Assessment Summary Assessment Pt had imrpoved flex after manual in seated w/flex w/STM to C-L spine rolling along paraspinals. Improved ER of R hip after manual. She did well with balance and was able to progress core exercises but did require cues. Physical Therapy Plan Frequency and Duration Frequency of Treatment 2x/Week Duration of Treatment 2 months Plan of Care Start Date 06/07/21 Plan of Care End Date 08/07/21 Next Visit Focus/Plan Next Note Type Treatment Note Next Visit Plan cont to progress core and balance
--- NOTE | 2021-06-21 16:01 | PT.OTN ---
Current Diagnoses Low back pain, unspecified (06/21/21) Physical Therapy Treatment Note PT-OP-A Visit Information Start: 06/06/21 07:44 Freq: Status: Active Protocol: Document 06/21/21 15:20 [facility] (Rec: 06/21/21 16:01 [facility] [id number]) Out-Patient Physical Therapy Visit Information Visit Information Visit Type Treatment Note Visit Note 07/11 Visit Start Time 15:20 Visit Stop Time 16:00 Total Visit Minutes 40 Visit Number 5 Number of STACK CLERK Visits 1 PT-OP-B Current Condition Start: 06/06/21 07:44 Freq: Status: Active Protocol: Document 06/07/21 09:05 [facility] (Rec: 06/07/21 11:14 [facility] [id number]) Current Condition History of Current Condition Onset Date 1 month ago Current Complaints LBP, head pain History of Current Condition Pt reports she fell off a radha and hit her head. It was dark and she had to go along side of her house to get in and got up to the area [place] could climb into the garage and was about 10ft up. She was walking along the radha edge in the dark and fell on head and L hip and knees and slid down the rest of the radha. She went over to her neighbors and they brought her to the ER where they did a head CT and she didn't have a skull fracture or brain bleed. This was 1 month ago. She reports LBP is better but did garden and it inc pain. She has rested on her back by laying flat. She stopped doing her exercsies for balance d/t pain. She had no bruising to her back but has had a lot of pain. She had been seeing Cris in the fall for balance and after 6 weeks, she felt like a new person and had not had a fall until she had this fall. Pt reports her biggest problem right now is depression especially since the fall. She has slos lost 2 friends in hospice care in the past week. She has difficulty making herself get going. Pt does report memory was a problem prior to fall and she did a screen and was given tools to help but it is way worse since the fall. Pt reports she typically likes to make art, garden, cook, go for long walks, dosen at 2 art museums where she does tours, watch [employer]. She has only driven 3 times since this fall. She has been exhausted on days that she does outings like go to the store then visit friends. Pt reports she will be watching TV and she feels a little clammy and sweaty. Treatment Goals Patient/Caregiver Goals be able to garden, get backt o balance exercises PT-OP-C Subjective Start: 06/06/21 07:44 Freq: Status: Active Protocol: Document 06/21/21 15:20 [facility] (Rec: 06/21/21 16:01 [facility] [id number]) OP-PT Subjective Patient Comments Patient Comments Amanda reports her pain is medium today. Not the worst but not the best today. PT-OP-G Mobility & Gait Start: 06/06/21 07:44 Freq: Status: Active Protocol: Document 06/07/21 09:05 [facility] (Rec: 06/07/21 11:14 [facility] [id number]) OP Gait Assessment Comments Gait Comments Pt amb w/evidence for imbalance w/dec DF and heavy foot slap during gait, dec stride length and no push off B and dec B wt acceptance PT-OP-J Posture/Palpation/Skin Start: 06/06/21 07:44 Freq: Status: Active Protocol: Document 06/07/21 09:05 [facility] (Rec: 06/07/21 11:14 [facility] [id number]) Posture Evaluation Hoang Postural Classification System Hoang Postural Classifications Posterior/Anterior Elbow Flexion Test 1 Lumbar Protective Mechanism Left AP 0 Lumbar Protective Mechanism Right AP 0 Lumbar Protective Mechanism Left PA 0 Lumbar Protective Mechanism Right PA 0 Comments Posture Comments inc kyphosis, R iliac crest higher, equal greater trochanters, L femoral IR PT-OP-K Range of Motion Start: 06/06/21 07:44 Freq: Status: Active Protocol: Document 06/07/21 09:05 [facility] (Rec: 06/07/21 11:14 [facility] [id number]) Lumbar Spine Range of Motion Lumbar Spine Active Percentage Flexion 40 Extension 50 Rotation Left 50 Rotation Right 80 Lateral Flexion Left 80 Lateral Flexion Right 80 Comments pain flex PT-OP-L Special Tests Start: 06/06/21 07:44 Freq: Status: Active Protocol: Document 06/07/21 09:05 [facility] (Rec: 06/07/21 11:14 [facility] [id number]) Special Tests Lumbar Spine Special Tests Slump Test Results positive PT-OP-M Strength Start: 06/06/21 07:44 Freq: Status: Active Protocol: Document 06/07/21 09:05 [facility] (Rec: 06/07/21 11:14 [facility] [id number]) Hip Strength Hip Manual Muscle Testing Right Flexion (L2) 4 Good Extension (S1) 4- Good- Abduction 4- Good- External Rotation 4 Good Internal Rotation 4 Good Comments pain at pubic symphysis Left Flexion (L2) 3+ Fair+ Extension (S1) 3+ Fair+ Abduction 3+ Fair+ External Rotation 3+ Fair+ Internal Rotation 3+ Fair+ Knee Strength Knee Manual Muscle Testing Right Flexion (S2) 5 Normal Extension (L3) 5 Normal Left Flexion (S2) 4- Good- Extension (L3) 4- Good- Ankle/Foot Strength Ankle and Foot Manual Muscle Testing Right Dorsiflexion (L4) 5 Normal Plantarflexion (S1) 5 Normal Left Dorsiflexion (L4) 5 Normal Plantarflexion (S1) 4 Good Comments pain w/DF; PF tested seated B PT-OP-Q Treatments Start: 06/06/21 07:44 Freq: Status: Active Protocol: Document 06/21/21 15:20 [facility] (Rec: 06/21/21 16:01 [facility] [id number]) Gym Equipment Therapeutic Ball sitting Ball Size/Color 65 cm Body Position Sitting Reps/Duration 10 Comments 1. pelvic circles 10x ea direction 2. marches w/focus on core 3. LAQ- d/c due to pt requiring mod a for balance Therapeutic Exercises Supine Exercises TAbd Supine Exercise Name 1. alt may at same time 2. BKFO Side bilateral Reps/Minutes 10 ea Other Exercises quadruped Other Exercise Name alt UE flex Side bilateral Reps/Minutes 10 Comments cues for core cat/camel Reps/Minutes 15 nathaly pose Side bilateral Reps/Minutes 30 sec Manual Therapy Treatment Soft Tissue Mobilization lumbar Body Location B lumbar ES Mobilization Type Myofascial Release,Rolling, Strumming,Sustained Pressure Intensity/Depth Moderate Comments prone L>R strumming; seated cervical to lumbar paraspinals rolling w/pt cervical, thoracic, lumbar sequential flex Neuro Re-Education Treatment Balance Activities SLS Details B trials CGA Comments Eo/EC trials more difficulty on R>L tandem stance Comments 1. stagggered stance B w/EC 2. tandem stance B Eo/EC PT-OP-T Assessment and Plan Start: 06/06/21 07:44 Freq: Status: Active Protocol: Document 06/21/21 15:20 [facility] (Rec: 06/21/21 16:01 [facility] [id number]) Physical Therapy Assessment Goals strength Short Term Goal (STG) Pt will be indep w/HEP STG Duration 07/07/21 Residential Goal (LTG) Pt will score at least 4+/5 on all LE MMT and 3/5 in all planes on LPM to show improved staiblity in order to allow pt to do typical activities easier. LTG Duration 08/07/21 activities Pre Sales Architect Goal (LTG) Pt will be able to garden and do typical house chores w/o difficulty or pain. LTG Duration 08/07/21 gait Short Term Goal (STG) Pt will show good gait pattern w/good push off when ambulating and showing dec instability in gait. STG Duration 07/07/21 Residential Goal (LTG) Pt will be able to go for long walks without inc pain or feeling off balance. LTG Duration 08/07/21 FELICIA Impairment 13/50 Short Term Goal (STG) Pt will report no greater than 8/50 to show improved function and return to typical activities. Residential Goal (LTG) Pt will report no greater than 2/50 to show improved function and return to typical activities. Assessment Summary Assessment Pt was able to balance SLS this session bilaterally with eyes open. She requires CGA- Min A with EC and has more difficulty balancing R>L. She is challenged by balance exercises while seated and is unable to perform LAQ seated on ball without Mod A to maintain balance. Physical Therapy Plan Frequency and Duration Frequency of Treatment 2x/Week Duration of Treatment 2 months Plan of Care Start Date 06/07/21 Plan of Care End Date 08/07/21 Therapeutic Interventions Therapeutic Interventions Aquatic Therapy,Balance Training,Gait Training,Home Exercise Program,Joint Mobilizations,Manual Therapy, Neuromuscular Re-education, Orthotic/Prosthetic Management ,Patient/Caregiver Education, Self-Care/Home Management,Soft Tissue Mobilization,Taping, Therapeutic Activities, Therapeutic Exercises Modalities Cold Pack/Ice Massage,Electric Stimulation,Hot Packs, Traction- Mechanical, Ultrasound Next Visit Focus/Plan Next Note Type Treatment Note Next Visit Plan cont to progress core and balance
--- NOTE | 2021-06-26 11:10 | PT.OTN ---
Current Diagnoses Low back pain, unspecified (06/26/21) Physical Therapy Treatment Note PT-OP-A Visit Information Start: 06/06/21 07:44 Freq: Status: Active Protocol: Document 06/26/21 09:15 [facility] (Rec: 06/26/21 11:10 [facility] [id number]) Out-Patient Physical Therapy Visit Information Visit Information Visit Type Treatment Note Visit Note 08/11 Visit Start Time 09:51 Visit Stop Time 10:31 Total Visit Minutes 40 Visit Number 6 Number of NUT DEHYDRATOR OPERATOR Visits 0 PT-OP-B Current Condition Start: 06/06/21 07:44 Freq: Status: Active Protocol: Document 06/07/21 09:05 [facility] (Rec: 06/07/21 11:14 [facility] [id number]) Current Condition History of Current Condition Onset Date 1 month ago Current Complaints LBP, head pain History of Current Condition Pt reports she fell off a radha and hit her head. It was dark and she had to go along side of her house to get in and got up to the area slo[place] could climb into the garage and was about 10ft up. She was walking along the radha edge in the dark and fell on head and L hip and knees and slid down the rest of the radha. She went over to her neighbors and they brought her to the ER where they did a head CT and she didn't have a skull fracture or brain bleed. This was 1 month ago. She reports LBP is better but did garden and it inc pain. She has rested on her back by laying flat. She stopped doing her exercsies for balance d/t pain. She had no bruising to her back but has had a lot of pain. She had been seeing Cris in the fall for balance and after 6 weeks, she felt like a new person and had not had a fall until she had this fall. Pt reports her biggest problem right now is depression especially since the fall. She has slos lost 2 friends in hospice care in the past week. She has difficulty making herself get going. Pt does report memory was a problem prior to fall and she did a screen and was given tools to help but it is way worse since the fall. Pt reports she typically likes to make art, garden, cook, go for long walks, dosen at 2 art museums where she does tours, watch [employer]. She has only driven 3 times since this fall. She has been exhausted on days that she does outings like go to the store then visit friends. Pt reports she will be watching TV and she feels a little clammy and sweaty. Treatment Goals Patient/Caregiver Goals be able to garden, get backt o balance exercises PT-OP-C Subjective Start: 06/06/21 07:44 Freq: Status: Active Protocol: Document 06/26/21 09:15 [facility] (Rec: 06/26/21 11:10 [facility] [id number]) OP-PT Subjective Patient Comments Patient Comments Pt reprots spending 1.5 hrs in garden yesterday and backw as sore but she showered and took at nap and back felt fine after. Notes she feels like her stamina is limiting her PT-OP-G Mobility & Gait Start: 06/06/21 07:44 Freq: Status: Active Protocol: Document 06/07/21 09:05 [facility] (Rec: 06/07/21 11:14 [facility] [id number]) OP Gait Assessment Comments Gait Comments Pt amb w/evidence for imbalance w/dec DF and heavy foot slap during gait, dec stride length and no push off B and dec B wt acceptance PT-OP-J Posture/Palpation/Skin Start: 06/06/21 07:44 Freq: Status: Active Protocol: Document 06/07/21 09:05 [facility] (Rec: 06/07/21 11:14 [facility] [id number]) Posture Evaluation Hoang Postural Classification System Hoang Postural Classifications Posterior/Anterior Elbow Flexion Test 1 Lumbar Protective Mechanism Left AP 0 Lumbar Protective Mechanism Right AP 0 Lumbar Protective Mechanism Left PA 0 Lumbar Protective Mechanism Right PA 0 Comments Posture Comments inc kyphosis, R iliac crest higher, equal greater trochanters, L femoral IR PT-OP-K Range of Motion Start: 06/06/21 07:44 Freq: Status: Active Protocol: Document 06/07/21 09:05 [facility] (Rec: 06/07/21 11:14 [facility] [id number]) Lumbar Spine Range of Motion Lumbar Spine Active Percentage Flexion 40 Extension 50 Rotation Left 50 Rotation Right 80 Lateral Flexion Left 80 Lateral Flexion Right 80 Comments pain flex PT-OP-L Special Tests Start: 06/06/21 07:44 Freq: Status: Active Protocol: Document 06/07/21 09:05 [facility] (Rec: 06/07/21 11:14 [facility] [id number]) Special Tests Lumbar Spine Special Tests Slump Test Results positive PT-OP-M Strength Start: 06/06/21 07:44 Freq: Status: Active Protocol: Document 06/07/21 09:05 [facility] (Rec: 06/07/21 11:14 [facility] [id number]) Hip Strength Hip Manual Muscle Testing Right Flexion (L2) 4 Good Extension (S1) 4- Good- Abduction 4- Good- External Rotation 4 Good Internal Rotation 4 Good Comments pain at pubic symphysis Left Flexion (L2) 3+ Fair+ Extension (S1) 3+ Fair+ Abduction 3+ Fair+ External Rotation 3+ Fair+ Internal Rotation 3+ Fair+ Knee Strength Knee Manual Muscle Testing Right Flexion (S2) 5 Normal Extension (L3) 5 Normal Left Flexion (S2) 4- Good- Extension (L3) 4- Good- Ankle/Foot Strength Ankle and Foot Manual Muscle Testing Right Dorsiflexion (L4) 5 Normal Plantarflexion (S1) 5 Normal Left Dorsiflexion (L4) 5 Normal Plantarflexion (S1) 4 Good Comments pain w/DF; PF tested seated B PT-OP-Q Treatments Start: 06/06/21 07:44 Freq: Status: Active Protocol: Document 06/26/21 09:15 [facility] (Rec: 06/26/21 11:10 [facility] [id number]) Gym Equipment Shuttle Balance red clips Comments fwd& side: WBOS & NBOS fwd: staggerd stance B Therapeutic Ball sitting Ball Size/Color 65 cm Body Position Sitting Reps/Duration 10 ea Comments 1. pelvic circles 10x ea direction 2. marches w/focus on core 3. LAQ w/finger on rail Therapeutic Exercises Standing Exercises side step Standing Exercise Name multifidi walk outs Side bilateral Equipment Used L1 Reps/Minutes 10x Manual Therapy Treatment Soft Tissue Mobilization lumbar Body Location B lumbar ES & L QL Mobilization Type Myofascial Release,Rolling, Strumming,Sustained Pressure Intensity/Depth Moderate Body Position Sidelying Comments w/ant elevation/post dep Joint Mobilizations lumbar Comments 1. gapping T12-L1 FM 2. sideglide L3-4 R FM 3. sideglide L T12, L1 FM Neuro Re-Education Treatment Other Activities PNF Details 1. ant elevation L pelvis 2. post dep L pelvis Comments 1. rhythmic initiation L 2. sustained holds L 3. COI L PT-OP-T Assessment and Plan Start: 06/06/21 07:44 Freq: Status: Active Protocol: Document 06/26/21 09:15 [facility] (Rec: 06/26/21 11:10 [facility] [id number]) Physical Therapy Assessment Goals strength Short Term Goal (STG) Pt will be indep w/HEP STG Duration 07/07/21 [place] Goal (LTG) Pt will score at least 4+/5 on all LE MMT and 3/5 in all planes on LPM to show improved staiblity in order to allow pt to do typical activities easier. LTG Duration 08/07/21 activities Group Home Goal (LTG) Pt will be able to garden and do typical house chores w/o difficulty or pain. LTG Duration 08/07/21 gait Short Term Goal (STG) Pt will show good gait pattern w/good push off when ambulating and showing dec instability in gait. STG Duration 07/07/21 [place] Hand Goal (LTG) Pt will be able to go for long walks without inc pain or feeling off balance. LTG Duration 08/07/21 FELICIA Impairment 13/50 Short Term Goal (STG) Pt will report no greater than 8/50 to show improved function and return to typical activities. [place] Hand Goal (LTG) Pt will report no greater than 2/50 to show improved function and return to typical activities. Physical Therapy Plan Frequency and Duration Frequency of Treatment 2x/Week Duration of Treatment 2 months Plan of Care Start Date 06/07/21 Plan of Care End Date 08/07/21 Next Visit Focus/Plan Next Note Type Treatment Note Next Visit Plan cont to progress core and balance
--- NOTE | 2021-06-28 13:00 | PT.OTN ---
Current Diagnoses Low back pain, unspecified (06/28/21) Physical Therapy Treatment Note PT-OP-A Visit Information Start: 06/06/21 07:44 Freq: Status: Active Protocol: Document 06/28/21 12:15 [facility] (Rec: 06/28/21 13:03 [facility] [id number]) Out-Patient Physical Therapy Visit Information Visit Information Visit Type Treatment Note Visit Note 09/10 Visit Start Time 12:15 Visit Stop Time 13:00 Total Visit Minutes 45 Visit Number 7 Number of DIRECT MARKETING REPRESENTATIVE Visits 1 PT-OP-B Current Condition Start: 06/06/21 07:44 Freq: Status: Active Protocol: Document 06/07/21 09:05 [facility] (Rec: 06/07/21 11:14 [facility] [id number]) Current Condition History of Current Condition Onset Date 1 month ago Current Complaints LBP, head pain History of Current Condition Pt reports she fell off a radha and hit her head. It was dark and she had to go along side of her house to get in and got up to the area [place] could climb into the garage and was about 10ft up. She was walking along the radha edge in the dark and fell on head and L hip and knees and slid down the rest of the radha. She went over to her neighbors and they brought her to the ER where they did a head CT and she didn't have a skull fracture or brain bleed. This was 1 month ago. She reports LBP is better but did garden and it inc pain. She has rested on her back by laying flat. She stopped doing her exercsies for balance d/t pain. She had no bruising to her back but has had a lot of pain. She had been seeing Cris in the fall for balance and after 6 weeks, she felt like a new person and had not had a fall until she had this fall. Pt reports her biggest problem right now is depression especially since the fall. She has slos lost 2 friends in hospice care in the past week. She has difficulty making herself get going. Pt does report memory was a problem prior to fall and she did a screen and was given tools to help but it is way worse since the fall. Pt reports she typically likes to make art, garden, cook, go for long walks, dosen at 2 art museums where she does tours, watch [employer]. She has only driven 3 times since this fall. She has been exhausted on days that she does outings like go to the store then visit friends. Pt reports she will be watching TV and she feels a little clammy and sweaty. Treatment Goals Patient/Caregiver Goals be able to garden, get backt o balance exercises PT-OP-C Subjective Start: 06/06/21 07:44 Freq: Status: Active Protocol: Document 06/28/21 12:15 [facility] (Rec: 06/28/21 13:03 [facility] [id number]) OP-PT Subjective Patient Comments Patient Comments Pt stated wants to get back to gardening but off balance on uneven surfaces at this time. PT-OP-G Mobility & Gait Start: 06/06/21 07:44 Freq: Status: Active Protocol: Document 06/07/21 09:05 [facility] (Rec: 06/07/21 11:14 [facility] [id number]) OP Gait Assessment Comments Gait Comments Pt amb w/evidence for imbalance w/dec DF and heavy foot slap during gait, dec stride length and no push off B and dec B wt acceptance PT-OP-J Posture/Palpation/Skin Start: 06/06/21 07:44 Freq: Status: Active Protocol: Document 06/07/21 09:05 [facility] (Rec: 06/07/21 11:14 [facility] [id number]) Posture Evaluation Hoang Postural Classification System Hoang Postural Classifications Posterior/Anterior Elbow Flexion Test 1 Lumbar Protective Mechanism Left AP 0 Lumbar Protective Mechanism Right AP 0 Lumbar Protective Mechanism Left PA 0 Lumbar Protective Mechanism Right PA 0 Comments Posture Comments inc kyphosis, R iliac crest higher, equal greater trochanters, L femoral IR PT-OP-K Range of Motion Start: 06/06/21 07:44 Freq: Status: Active Protocol: Document 06/07/21 09:05 [facility] (Rec: 06/07/21 11:14 [facility] [id number]) Lumbar Spine Range of Motion Lumbar Spine Active Percentage Flexion 40 Extension 50 Rotation Left 50 Rotation Right 80 Lateral Flexion Left 80 Lateral Flexion Right 80 Comments pain flex PT-OP-L Special Tests Start: 06/06/21 07:44 Freq: Status: Active Protocol: Document 06/07/21 09:05 [facility] (Rec: 06/07/21 11:14 [facility] [id number]) Special Tests Lumbar Spine Special Tests Slump Test Results positive PT-OP-M Strength Start: 06/06/21 07:44 Freq: Status: Active Protocol: Document 06/07/21 09:05 [facility] (Rec: 06/07/21 11:14 [facility] [id number]) Hip Strength Hip Manual Muscle Testing Right Flexion (L2) 4 Good Extension (S1) 4- Good- Abduction 4- Good- External Rotation 4 Good Internal Rotation 4 Good Comments pain at pubic symphysis Left Flexion (L2) 3+ Fair+ Extension (S1) 3+ Fair+ Abduction 3+ Fair+ External Rotation 3+ Fair+ Internal Rotation 3+ Fair+ Knee Strength Knee Manual Muscle Testing Right Flexion (S2) 5 Normal Extension (L3) 5 Normal Left Flexion (S2) 4- Good- Extension (L3) 4- Good- Ankle/Foot Strength Ankle and Foot Manual Muscle Testing Right Dorsiflexion (L4) 5 Normal Plantarflexion (S1) 5 Normal Left Dorsiflexion (L4) 5 Normal Plantarflexion (S1) 4 Good Comments pain w/DF; PF tested seated B PT-OP-Q Treatments Start: 06/06/21 07:44 Freq: Status: Active Protocol: Document 06/28/21 12:15 [facility] (Rec: 06/28/21 13:03 [facility] [id number]) Gym Equipment Shuttle Balance red clips Details f/b wt shift, stationary bal, head turn Comments fwd& side: WBOS fwd: staggerd stance B more stable RLE foward Cued wt between BLE . Min A Therapeutic Ball sitting Ball Size/Color 65 cm Body Position Sitting Reps/Duration 10 ea Comments 1. pelvic f/b/lateral/circles 10x ea direction 2. marches w/focus on core 3. LAQ w/finger on rail Therapeutic Exercises Standing Exercises side step Standing Exercise Name multifidi and core walk outs Side bilateral Equipment Used L!> L2 TB loop Reps/Minutes 10 ft rail x2 laps each direction Comments cued elevate ribcage, forward trunk wt shift pelvis under, decr TFL recruit Neuro Re-Education Treatment Other Activities PNF Details 1. ant elevation L pelvis 2. post dep L pelvis Comments 1. rhythmic initiation L 2. sustained holds L 3. COI L Self-Care/Home Management Treatment Education Patient Education Body Mechanics,Posture Other Education DIRECT MARKETING REPRESENTATIVE discussed use of trek pole in garden for balance recovery support at this time, why didn't I think of that. PT-OP-T Assessment and Plan Start: 06/06/21 07:44 Freq: Status: Active Protocol: Document 06/28/21 12:15 [facility] (Rec: 06/28/21 13:03 [facility] [id number]) Physical Therapy Assessment Goals strength Short Term Goal (STG) Pt will be indep w/HEP STG Duration 07/07/21 Mcc Goal (LTG) Pt will score at least 4+/5 on all LE MMT and 3/5 in all planes on LPM to show improved staiblity in order to allow pt to do typical activities easier. LTG Duration 08/07/21 activities Mcc Goal (LTG) Pt will be able to garden and do typical house chores w/o difficulty or pain. LTG Duration 08/07/21 gait Short Term Goal (STG) Pt will show good gait pattern w/good push off when ambulating and showing dec instability in gait. STG Duration 07/07/21 Mcc Goal (LTG) Pt will be able to go for long walks without inc pain or feeling off balance. LTG Duration 08/07/21 FELICIA Impairment 13/50 Short Term Goal (STG) Pt will report no greater than 8/50 to show improved function and return to typical activities. Mcc Goal (LTG) Pt will report no greater than 2/50 to show improved function and return to typical activities. Assessment Summary Assessment Pt improved corrections with ed and cuing for anterior tilt , elevated posture over pelvis and wt shift forward, improved correction understanding during repeated side stepping, able increase resistance. Pt able improve core and better AT alignmetn during seated march/ LE lift. Pt better trunk/ pelvic alignment leaving. Physical Therapy Plan Frequency and Duration Frequency of Treatment 2x/Week Duration of Treatment 2 months Plan of Care Start Date 06/07/21 Plan of Care End Date 08/07/21 Therapeutic Interventions Therapeutic Interventions Aquatic Therapy,Balance Training,Gait Training,Home Exercise Program,Joint Mobilizations,Manual Therapy, Neuromuscular Re-education, Orthotic/Prosthetic Management ,Patient/Caregiver Education, Self-Care/Home Management,Soft Tissue Mobilization,Taping, Therapeutic Activities, Therapeutic Exercises Modalities Cold Pack/Ice Massage,Electric Stimulation,Hot Packs, Traction- Mechanical, Ultrasound Next Visit Focus/Plan Next Note Type Treatment Note Next Visit Plan Continue pelvis/ postural corrections with uneven surface sit/ side stepping. Next tx: on/off floor ( activity performed in past). POC: cont to progress core and balance
--- NOTE | 2021-07-03 10:34 | PT.OTN ---
Current Diagnoses Low back pain, unspecified (07/03/21) Physical Therapy Treatment Note PT-OP-A Visit Information Start: 06/06/21 07:44 Freq: Status: Active Protocol: Document 07/03/21 09:48 [facility] (Rec: 07/03/21 10:34 [facility] [id number]) Out-Patient Physical Therapy Visit Information Visit Information Visit Type Treatment Note Visit Note 10/11 Visit Start Time 09:49 Visit Stop Time 10:29 Total Visit Minutes 40 Visit Number 8 Number of EDITOR PRODUCER Visits 0 PT-OP-B Current Condition Start: 06/06/21 07:44 Freq: Status: Active Protocol: Document 06/07/21 09:05 [facility] (Rec: 06/07/21 11:14 [facility] [id number]) Current Condition History of Current Condition Onset Date 1 month ago Current Complaints LBP, head pain History of Current Condition Pt reports she fell off a radha and hit her head. It was dark and she had to go along side of her house to get in and got up to the area sloane wesley could climb into the garage and was about 10ft up. She was walking along the radha edge in the dark and fell on head and L hip and knees and slid down the rest of the radha. She went over to her neighbors and they brought her to the ER where they did a head CT and she didn't have a skull fracture or brain bleed. This was 1 month ago. She reports LBP is better but did garden and it inc pain. She has rested on her back by laying flat. She stopped doing her exercsies for balance d/t pain. She had no bruising to her back but has had a lot of pain. She had been seeing Cris in the fall for balance and after 6 weeks, she felt like a new person and had not had a fall until she had this fall. Pt reports her biggest problem right now is depression especially since the fall. She has slos lost 2 friends in hospice care in the past week. She has difficulty making herself get going. Pt does report memory was a problem prior to fall and she did a screen and was given tools to help but it is way worse since the fall. Pt reports she typically likes to make art, garden, cook, go for long walks, dosen at 2 art museums where she does tours, watch [employer]. She has only driven 3 times since this fall. She has been exhausted on days that she does outings like go to the store then visit friends. Pt reports she will be watching TV and she feels a little clammy and sweaty. Treatment Goals Patient/Caregiver Goals be able to garden, get backt o balance exercises PT-OP-C Subjective Start: 06/06/21 07:44 Freq: Status: Active Protocol: Document 07/03/21 09:48 [facility] (Rec: 07/03/21 10:34 [facility] [id number]) OP-PT Subjective Patient Comments Patient Comments Pt had a tough day wed. She came to PT and felt okay but then drove down to and back form [place] and stood for 2 hours at a reunion. Next day wore a patch and that helped. PT-OP-G Mobility & Gait Start: 06/06/21 07:44 Freq: Status: Active Protocol: Document 06/07/21 09:05 [facility] (Rec: 06/07/21 11:14 [facility] [id number]) OP Gait Assessment Comments Gait Comments Pt amb w/evidence for imbalance w/dec DF and heavy foot slap during gait, dec stride length and no push off B and dec B wt acceptance PT-OP-J Posture/Palpation/Skin Start: 06/06/21 07:44 Freq: Status: Active Protocol: Document 06/07/21 09:05 [facility] (Rec: 06/07/21 11:14 [facility] [id number]) Posture Evaluation [facility] Postural Classification System [facility] Postural Classifications Posterior/Anterior Elbow Flexion Test 1 Lumbar Protective Mechanism Left AP 0 Lumbar Protective Mechanism Right AP 0 Lumbar Protective Mechanism Left PA 0 Lumbar Protective Mechanism Right PA 0 Comments Posture Comments inc kyphosis, R iliac crest higher, equal greater trochanters, L femoral IR PT-OP-K Range of Motion Start: 06/06/21 07:44 Freq: Status: Active Protocol: Document 06/07/21 09:05 [facility] (Rec: 06/07/21 11:14 [facility] [id number]) Lumbar Spine Range of Motion Lumbar Spine Active Percentage Flexion 40 Extension 50 Rotation Left 50 Rotation Right 80 Lateral Flexion Left 80 Lateral Flexion Right 80 Comments pain flex PT-OP-L Special Tests Start: 06/06/21 07:44 Freq: Status: Active Protocol: Document 06/07/21 09:05 [facility] (Rec: 06/07/21 11:14 [facility] [id number]) Special Tests Lumbar Spine Special Tests Slump Test Results positive PT-OP-M Strength Start: 06/06/21 07:44 Freq: Status: Active Protocol: Document 06/07/21 09:05 [facility] (Rec: 06/07/21 11:14 [facility] [id number]) Hip Strength Hip Manual Muscle Testing Right Flexion (L2) 4 Good Extension (S1) 4- Good- Abduction 4- Good- External Rotation 4 Good Internal Rotation 4 Good Comments pain at pubic symphysis Left Flexion (L2) 3+ Fair+ Extension (S1) 3+ Fair+ Abduction 3+ Fair+ External Rotation 3+ Fair+ Internal Rotation 3+ Fair+ Knee Strength Knee Manual Muscle Testing Right Flexion (S2) 5 Normal Extension (L3) 5 Normal Left Flexion (S2) 4- Good- Extension (L3) 4- Good- Ankle/Foot Strength Ankle and Foot Manual Muscle Testing Right Dorsiflexion (L4) 5 Normal Plantarflexion (S1) 5 Normal Left Dorsiflexion (L4) 5 Normal Plantarflexion (S1) 4 Good Comments pain w/DF; PF tested seated B PT-OP-Q Treatments Start: 06/06/21 07:44 Freq: Status: Active Protocol: Document 07/03/21 09:48 [facility] (Rec: 07/03/21 10:34 [facility] [id number]) Gym Equipment Shuttle Balance red clips Details stationary bal, head turn ( fwd Wbos) Comments fwd& side: WBOS & NBOS fwd: staggerd stance B Cued wt between BLE . Therapeutic Exercises Standing Exercises fwd/back Side bilateral Equipment Used L2 Reps/Minutes 20ft squat Side bilateral Reps/Minutes 10 hip abd Side bilateral Equipment Used L2 Reps/Minutes 20ft side step Standing Exercise Name multifidi and core walk outs Side bilateral Equipment Used L1 both bands Reps/Minutes 10 ea Manual Therapy Treatment Soft Tissue Mobilization lumbar Body Location L QL/ colon Mobilization Type Myofascial Release,Rolling, Strumming,Sustained Pressure Intensity/Depth Moderate Body Position Sidelying Comments w/ant elevation/post dep Joint Mobilizations innominate Joint L Direction gapping FM lumbar Comments 1. L 5 transverse L 2. L2 transverse L FM Neuro Re-Education Treatment Balance Activities EC Comments 1. firm:NBOS & staggered stance B 2.foam: WBOS & NBOS SLS Comments 16 in step toe taps x12 B PT-OP-T Assessment and Plan Start: 06/06/21 07:44 Freq: Status: Active Protocol: Document 07/03/21 09:48 [facility] (Rec: 07/03/21 10:34 [facility] [id number]) Physical Therapy Assessment Goals strength Short Term Goal (STG) Pt will be indep w/HEP STG Duration 07/07/21 Web Applications Programmer Goal (LTG) Pt will score at least 4+/5 on all LE MMT and 3/5 in all planes on LPM to show improved staiblity in order to allow pt to do typical activities easier. LTG Duration 08/07/21 activities Web Applications Programmer Goal (LTG) Pt will be able to garden and do typical house chores w/o difficulty or pain. LTG Duration 08/07/21 gait Short Term Goal (STG) Pt will show good gait pattern w/good push off when ambulating and showing dec instability in gait. STG Duration 07/07/21 Longterm Goal (LTG) Pt will be able to go for long walks without inc pain or feeling off balance. LTG Duration 08/07/21 FELICIA Impairment 13/50 Short Term Goal (STG) Pt will report no greater than 8/50 to show improved function and return to typical activities. Longterm Goal (LTG) Pt will report no greater than 2/50 to show improved function and return to typical activities. Assessment Summary Assessment Pt did well with balance exercises today but still was challenged by blaance board w/ cues to use LEs to help stabilize vs grabbign w/hands. She had imrpoved ability to go into ant elevation after manual Physical Therapy Plan Frequency and Duration Frequency of Treatment 2x/Week Duration of Treatment 2 months Plan of Care Start Date 06/07/21 Plan of Care End Date 08/07/21 Next Visit Focus/Plan Next Note Type Treatment Note Next Visit Plan cont to progress core and balance
--- NOTE | 2021-07-05 10:36 | PT.OTN ---
Current Diagnoses Low back pain, unspecified (07/05/21) Physical Therapy Treatment Note PT-OP-A Visit Information Start: 06/06/21 07:44 Freq: Status: Active Protocol: Document 07/05/21 09:48 [facility] (Rec: 07/05/21 10:36 [facility] [id number]) Out-Patient Physical Therapy Visit Information Visit Information Visit Type Treatment Note Visit Note 11/11 Visit Start Time 09:49 Visit Stop Time 10:29 Total Visit Minutes 40 Visit Number 9 Number of BUGGY DRIVER Visits 0 PT-OP-B Current Condition Start: 06/06/21 07:44 Freq: Status: Active Protocol: Document 06/07/21 09:05 [facility] (Rec: 06/07/21 11:14 [facility] [id number]) Current Condition History of Current Condition Onset Date 1 month ago Current Complaints LBP, head pain History of Current Condition Pt reports she fell off a radha and hit her head. It was dark and she had to go along side of her house to get in and got up to the area slo[place] could climb into the garage and was about 10ft up. She was walking along the radha edge in the dark and fell on head and L hip and knees and slid down the rest of the radha. She went over to her neighbors and they brought her to the ER where they did a head CT and she didn't have a skull fracture or brain bleed. This was 1 month ago. She reports LBP is better but did garden and it inc pain. She has rested on her back by laying flat. She stopped doing her exercsies for balance d/t pain. She had no bruising to her back but has had a lot of pain. She had been seeing Cris in the fall for balance and after 6 weeks, she felt like a new person and had not had a fall until she had this fall. Pt reports her biggest problem right now is depression especially since the fall. She has slos lost 2 friends in hospice care in the past week. She has difficulty making herself get going. Pt does report memory was a problem prior to fall and she did a screen and was given tools to help but it is way worse since the fall. Pt reports she typically likes to make art, garden, cook, go for long walks, dosen at 2 art museums where she does tours, watch [employer]. She has only driven 3 times since this fall. She has been exhausted on days that she does outings like go to the store then visit friends. Pt reports she will be watching TV and she feels a little clammy and sweaty. Treatment Goals Patient/Caregiver Goals be able to garden, get backt o balance exercises PT-OP-C Subjective Start: 06/06/21 07:44 Freq: Status: Active Protocol: Document 07/05/21 09:48 [facility] (Rec: 07/05/21 10:36 [facility] [id number]) OP-PT Subjective Patient Comments Patient Comments Pt reports drivign down to [email or web address] and it was tough on her back w/the standing also. She wonders if its her car seat PT-OP-G Mobility & Gait Start: 06/06/21 07:44 Freq: Status: Active Protocol: Document 06/07/21 09:05 [facility] (Rec: 06/07/21 11:14 [facility] [id number]) OP Gait Assessment Comments Gait Comments Pt amb w/evidence for imbalance w/dec DF and heavy foot slap during gait, dec stride length and no push off B and dec B wt acceptance PT-OP-J Posture/Palpation/Skin Start: 06/06/21 07:44 Freq: Status: Active Protocol: Document 06/07/21 09:05 [facility] (Rec: 06/07/21 11:14 [facility] [id number]) Posture Evaluation [facility] Postural Classification System [facility] Postural Classifications Posterior/Anterior Elbow Flexion Test 1 Lumbar Protective Mechanism Left AP 0 Lumbar Protective Mechanism Right AP 0 Lumbar Protective Mechanism Left PA 0 Lumbar Protective Mechanism Right PA 0 Comments Posture Comments inc kyphosis, R iliac crest higher, equal greater trochanters, L femoral IR PT-OP-K Range of Motion Start: 06/06/21 07:44 Freq: Status: Active Protocol: Document 06/07/21 09:05 [facility] (Rec: 06/07/21 11:14 [facility] [id number]) Lumbar Spine Range of Motion Lumbar Spine Active Percentage Flexion 40 Extension 50 Rotation Left 50 Rotation Right 80 Lateral Flexion Left 80 Lateral Flexion Right 80 Comments pain flex PT-OP-L Special Tests Start: 06/06/21 07:44 Freq: Status: Active Protocol: Document 06/07/21 09:05 [facility] (Rec: 06/07/21 11:14 [facility] [id number]) Special Tests Lumbar Spine Special Tests Slump Test Results positive PT-OP-M Strength Start: 06/06/21 07:44 Freq: Status: Active Protocol: Document 06/07/21 09:05 [facility] (Rec: 06/07/21 11:14 [facility] [id number]) Hip Strength Hip Manual Muscle Testing Right Flexion (L2) 4 Good Extension (S1) 4- Good- Abduction 4- Good- External Rotation 4 Good Internal Rotation 4 Good Comments pain at pubic symphysis Left Flexion (L2) 3+ Fair+ Extension (S1) 3+ Fair+ Abduction 3+ Fair+ External Rotation 3+ Fair+ Internal Rotation 3+ Fair+ Knee Strength Knee Manual Muscle Testing Right Flexion (S2) 5 Normal Extension (L3) 5 Normal Left Flexion (S2) 4- Good- Extension (L3) 4- Good- Ankle/Foot Strength Ankle and Foot Manual Muscle Testing Right Dorsiflexion (L4) 5 Normal Plantarflexion (S1) 5 Normal Left Dorsiflexion (L4) 5 Normal Plantarflexion (S1) 4 Good Comments pain w/DF; PF tested seated B PT-OP-Q Treatments Start: 06/06/21 07:44 Freq: Status: Active Protocol: Document 07/05/21 09:48 [facility] (Rec: 07/05/21 10:36 [facility] [id number]) Gym Equipment Shuttle Balance red clips Details stationary bal, head turn ( fwd Wbos) Comments fwd& side: WBOS & NBOS fwd: staggerd stance B Cued wt between BLE . Therapeutic Activity Therapeutic Activity ground transfers Comments pt able to get up/down w/o rail posture Comments set up w/car seat (elvated seat height, moved it fwd and tilted back fwd Manual Therapy Treatment Soft Tissue Mobilization glutes Body Location along L sacral border Mobilization Type Myofascial Release,Rolling, Strumming,Sustained Pressure Intensity/Depth Moderate Body Position Sidelying Joint Mobilizations sacrum Joint caudal L & UPA L FM innominate Joint L Direction ER FM hip Joint L Direction on axis ER FM Comments w/neuro re edu after Neuro Re-Education Treatment Balance Activities bosu Comments 1. step ups x8 B 2. standing balance B PT-OP-T Assessment and Plan Start: 06/06/21 07:44 Freq: Status: Active Protocol: Document 07/05/21 09:48 [facility] (Rec: 07/05/21 10:36 [facility] [id number]) Physical Therapy Assessment Goals strength Short Term Goal (STG) Pt will be indep w/HEP STG Duration 07/07/21 Tree Driller Goal (LTG) Pt will score at least 4+/5 on all LE MMT and 3/5 in all planes on LPM to show improved staiblity in order to allow pt to do typical activities easier. LTG Duration 08/07/21 activities Tree Driller Goal (LTG) Pt will be able to garden and do typical house chores w/o difficulty or pain. LTG Duration 08/07/21 gait Short Term Goal (STG) Pt will show good gait pattern w/good push off when ambulating and showing dec instability in gait. STG Duration 07/07/21 Tree Driller Goal (LTG) Pt will be able to go for long walks without inc pain or feeling off balance. LTG Duration 08/07/21 FELICIA Impairment 13/50 Short Term Goal (STG) Pt will report no greater than 8/50 to show improved function and return to typical activities. Tree Driller Goal (LTG) Pt will report no greater than 2/50 to show improved function and return to typical activities. Assessment Summary Assessment Pt did well with balance today and got progressively better w/step ups w/bosu initiatlly requirign rail use but improved to not needing it after mult reps. Pt felt more comfortable in seat after PT adjustment and pt had imrpoved ER in L hip after manual. Physical Therapy Plan Frequency and Duration Frequency of Treatment 2x/Week Duration of Treatment 2 months Plan of Care Start Date 06/07/21 Plan of Care End Date 08/07/21 Next Visit Focus/Plan Next Note Type Progress Note Next Visit Plan cont to progress core and balance
--- NOTE | 2021-07-11 18:06 | PT.OTN ---
Current Diagnoses Low back pain, unspecified (07/11/21) Physical Therapy Treatment Note PT-OP-A Visit Information Start: 06/06/21 07:44 Freq: Status: Active Protocol: Document 07/11/21 16:54 [facility] (Rec: 07/11/21 18:06 [facility] [id number]) Out-Patient Physical Therapy Visit Information Visit Information Visit Type Progress Note Visit Note 03/13 Visit Start Time 16:53 Visit Stop Time 17:33 Total Visit Minutes 40 Visit Number 10 Number of CRANE RIGGER Visits 0 PT-OP-B Current Condition Start: 06/06/21 07:44 Freq: Status: Active Protocol: Document 06/07/21 09:05 [facility] (Rec: 06/07/21 11:14 [facility] [id number]) Current Condition History of Current Condition Onset Date 1 month ago Current Complaints LBP, head pain History of Current Condition Pt reports she fell off a radha and hit her head. It was dark and she had to go along side of her house to get in and got up to the area sloane [place]es[place] could climb into the garage and was about 10ft up. She was walking along the radha edge in the dark and fell on head and L hip and knees and slid down the rest of the radha. She went over to her neighbors and they brought her to the ER where they did a head CT and she didn't have a skull fracture or brain bleed. This was 1 month ago. She reports LBP is better but did garden and it inc pain. She has rested on her back by laying flat. She stopped doing her exercsies for balance d/t pain. She had no bruising to her back but has had a lot of pain. She had been seeing Cris in the fall for balance and after 6 weeks, she felt like a new person and had not had a fall until she had this fall. Pt reports her biggest problem right now is depression especially since the fall. She has slos lost 2 friends in hospice care in the past week. She has difficulty making herself get going. Pt does report memory was a problem prior to fall and she did a screen and was given tools to help but it is way worse since the fall. Pt reports she typically likes to make art, garden, cook, go for long walks, dosen at 2 art museums where she does tours, watch [employer]. She has only driven 3 times since this fall. She has been exhausted on days that she does outings like go to the store then visit friends. Pt reports she will be watching TV and she feels a little clammy and sweaty. 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 She did much better w/ driving after change in seat. PT-OP-G Mobility & Gait Start: 06/06/21 07:44 Freq: Status: Active Protocol: Document 06/07/21 09:05 [facility] (Rec: 06/07/21 11:14 [facility] [id number]) OP Gait Assessment Comments Gait Comments Pt amb w/evidence for imbalance w/dec DF and heavy foot slap during gait, dec stride length and no push off B and dec B wt acceptance PT-OP-J Posture/Palpation/Skin Start: 06/06/21 07:44 Freq: Status: Active Protocol: Document 07/11/21 16:54 [facility] (Rec: 07/11/21 18:06 [facility] [id number]) Posture Evaluation [facility] Postural Classification System Lumbar Protective Mechanism Left AP 2 Lumbar Protective Mechanism Right AP 2 Lumbar Protective Mechanism Left PA 2 Lumbar Protective Mechanism Right PA 2 PT-OP-K Range of Motion Start: 06/06/21 07:44 Freq: Status: Active Protocol: Document 06/07/21 09:05 [facility] (Rec: 06/07/21 11:14 [facility] [id number]) Lumbar Spine Range of Motion Lumbar Spine Active Percentage Flexion 40 Extension 50 Rotation Left 50 Rotation Right 80 Lateral Flexion Left 80 Lateral Flexion Right 80 Comments pain flex PT-OP-L Special Tests Start: 06/06/21 07:44 Freq: Status: Active Protocol: Document 06/07/21 09:05 [facility] (Rec: 06/07/21 11:14 [facility] [id number]) Special Tests Lumbar Spine Special Tests Slump Test Results positive PT-OP-M Strength Start: 06/06/21 07:44 Freq: Status: Active Protocol: Document 07/11/21 16:54 [facility] (Rec: 07/11/21 18:06 [facility] [id number]) Hip Strength Hip Manual Muscle Testing Right Flexion (L2) 4 Good Extension (S1) 4+ Good+ Abduction 4+ Good+ Adduction 4 Good External Rotation 4+ Good+ Internal Rotation 4+ Good+ Left Flexion (L2) 4 Good Extension (S1) 4+ Good+ Abduction 4 Good Adduction 4 Good External Rotation 4+ Good+ Internal Rotation 4+ Good+ Knee Strength Knee Manual Muscle Testing Right Flexion (S2) 5 Normal Extension (L3) 5 Normal Left Flexion (S2) 5 Normal Extension (L3) 5 Normal Ankle/Foot Strength Ankle and Foot Manual Muscle Testing Right Dorsiflexion (L4) 5 Normal Plantarflexion (S1) 5 Normal Left Dorsiflexion (L4) 5 Normal Plantarflexion (S1) 5 Normal Comments PF tested seatd PT-OP-Q Treatments Start: 06/06/21 07:44 Freq: Status: Active Protocol: Document 07/11/21 16:54 [facility] (Rec: 07/11/21 18:06 [facility] [id number]) Gym Equipment Shuttle Balance red clips Comments fwd& side: WBOS & NBOS fwd: staggerd stance B fwd WBOS w/wt shifts Neuro Re-Education Treatment Balance Activities head turns Comments vertical and horizonal head turns w/fast walk 2x50ft ea bosu Comments 1. step ups x10 B 2. standing balance trials 3. lat step ups x10 B EC Comments fwd/back walk in hallways x50ft ea SLS Comments 16 in step toe taps x12 B PT-OP-T Assessment and Plan Start: 06/06/21 07:44 Freq: Status: Active Protocol: Document 07/11/21 16:54 [facility] (Rec: 07/11/21 18:06 [facility] [id number]) Physical Therapy Assessment Goals strength Short Term Goal (STG) Pt will be indep w/HEP STG Duration achieved and progressing as able Senior Living Goal (LTG) Pt will score at least 4+/5 on all LE MMT and 3/5 in all planes on LPM to show improved staiblity in order to allow pt to do typical activities easier. 510-much improved LTG Duration 08/07/21 activities Senior Living Goal (LTG) Pt will be able to garden and do typical house chores w/o difficulty or pain. LTG Duration achieved 510 gait Short Term Goal (STG) Pt will show good gait pattern w/good push off when ambulating and showing dec instability in gait. STG Duration achieved 510 Senior Living Goal (LTG) Pt will be able to go for long walks without inc pain or feeling off balance. 510-no back pain, still feels a little ricketty LTG Duration 08/07/21 FELICIA Impairment 13/50 Short Term Goal (STG) Pt will report no greater than 8/50 to show improved function and return to typical activities. 510-no change Senior Living Goal (LTG) Pt will report no greater than 2/50 to show improved function and return to typical activities. LTG Duration 08/07/21 Assessment Summary Assessment Pt is making excellent progress w/PT and shows a signficiant increase in balance, functional ability per her report and strength w/ dec overall back pain. She still does have some limits w/ her back but does feel like she is progressing well. Cont PT to focus on balance, core and functional mobility. Physical Therapy Plan Frequency and Duration Frequency of Treatment 2x/Week Duration of Treatment 2 months Plan of Care Start Date 06/07/21 Plan of Care End Date 08/07/21 Next Visit Focus/Plan Next Note Type Treatment Note Next Visit Plan cont to progress core and balance
--- NOTE | 2021-07-13 16:07 | PT.OTN ---
Current Diagnoses Low back pain, unspecified (07/13/21) Physical Therapy Treatment Note PT-OP-A Visit Information Start: 06/06/21 07:44 Freq: Status: Active Protocol: Document 07/13/21 15:16 [facility] (Rec: 07/13/21 16:07 [facility] [id number]) Out-Patient Physical Therapy Visit Information Visit Information Visit Type Treatment Note Visit Note 04/13 Visit Start Time 15:20 Visit Stop Time 16:02 Total Visit Minutes 42 Visit Number 11 Number of CHILDRENS CL[employer] ATTENDANT Visits 0 PT-OP-B Current Condition Start: 06/06/21 07:44 Freq: Status: Active Protocol: Document 06/07/21 09:05 [facility] (Rec: 06/07/21 11:14 [facility] [id number]) Current Condition History of Current Condition Onset Date 1 month ago Current Complaints LBP, head pain History of Current Condition Pt reports she fell off a radha and hit her head. It was dark and she had to go along side of her house to get in and got up to the area [place] could climb into the garage and was about 10ft up. She was walking along the radha edge in the dark and fell on head and L hip and knees and slid down the rest of the radha. She went over to her neighbors and they brought her to the ER where they did a head CT and she didn't have a skull fracture or brain bleed. This was 1 month ago. She reports LBP is better but did garden and it inc pain. She has rested on her back by laying flat. She stopped doing her exercsies for balance d/t pain. She had no bruising to her back but has had a lot of pain. She had been seeing Cris in the fall for balance and after 6 weeks, she felt like a new person and had not had a fall until she had this fall. Pt reports her biggest problem right now is depression especially since the fall. She has slos lost 2 friends in hospice care in the past week. She has difficulty making herself get going. Pt does report memory was a problem prior to fall and she did a screen and was given tools to help but it is way worse since the fall. Pt reports she typically likes to make art, garden, cook, go for long walks, dosen at 2 art museums where she does tours, watch [employer]. She has only driven 3 times since this fall. She has been exhausted on days that she does outings like go to the store then visit friends. Pt reports she will be watching TV and she feels a little clammy and sweaty. Treatment Goals Patient/Caregiver Goals be able to garden, get backt o balance exercises PT-OP-C Subjective Start: 06/06/21 07:44 Freq: Status: Active Protocol: Document 07/13/21 15:16 [facility] (Rec: 07/13/21 16:07 [facility] [id number]) OP-PT Subjective Patient Comments Patient Comments Pt reports doing well today PT-OP-G Mobility & Gait Start: 06/06/21 07:44 Freq: Status: Active Protocol: Document 06/07/21 09:05 [facility] (Rec: 06/07/21 11:14 [facility] [id number]) OP Gait Assessment Comments Gait Comments Pt amb w/evidence for imbalance w/dec DF and heavy foot slap during gait, dec stride length and no push off B and dec B wt acceptance PT-OP-J Posture/Palpation/Skin Start: 06/06/21 07:44 Freq: Status: Active Protocol: Document 07/11/21 16:54 [facility] (Rec: 07/11/21 18:06 [facility] [id number]) Posture Evaluation [facility] Postural Classification System Lumbar Protective Mechanism Left AP 2 Lumbar Protective Mechanism Right AP 2 Lumbar Protective Mechanism Left PA 2 Lumbar Protective Mechanism Right PA 2 PT-OP-K Range of Motion Start: 06/06/21 07:44 Freq: Status: Active Protocol: Document 06/07/21 09:05 [facility] (Rec: 06/07/21 11:14 [facility] [id number]) Lumbar Spine Range of Motion Lumbar Spine Active Percentage Flexion 40 Extension 50 Rotation Left 50 Rotation Right 80 Lateral Flexion Left 80 Lateral Flexion Right 80 Comments pain flex PT-OP-L Special Tests Start: 06/06/21 07:44 Freq: Status: Active Protocol: Document 06/07/21 09:05 [facility] (Rec: 06/07/21 11:14 [facility] [id number]) Special Tests Lumbar Spine Special Tests Slump Test Results positive PT-OP-M Strength Start: 06/06/21 07:44 Freq: Status: Active Protocol: Document 07/11/21 16:54 [facility] (Rec: 07/11/21 18:06 [facility] [id number]) Hip Strength Hip Manual Muscle Testing Right Flexion (L2) 4 Good Extension (S1) 4+ Good+ Abduction 4+ Good+ Adduction 4 Good External Rotation 4+ Good+ Internal Rotation 4+ Good+ Left Flexion (L2) 4 Good Extension (S1) 4+ Good+ Abduction 4 Good Adduction 4 Good External Rotation 4+ Good+ Internal Rotation 4+ Good+ Knee Strength Knee Manual Muscle Testing Right Flexion (S2) 5 Normal Extension (L3) 5 Normal Left Flexion (S2) 5 Normal Extension (L3) 5 Normal Ankle/Foot Strength Ankle and Foot Manual Muscle Testing Right Dorsiflexion (L4) 5 Normal Plantarflexion (S1) 5 Normal Left Dorsiflexion (L4) 5 Normal Plantarflexion (S1) 5 Normal Comments PF tested seatd PT-OP-Q Treatments Start: 06/06/21 07:44 Freq: Status: Active Protocol: Document 07/13/21 15:16 [facility] (Rec: 07/13/21 16:07 [facility] [id number]) Gym Equipment Shuttle Balance red clips Comments fwd& side: WBOS & NBOS fwd: staggerd stance B fwd & side WBOS w/wt shifts Sport Cord step ups Exercise Details 8 in step Comments green x5 B, red x10 B Neuro Re-Education Treatment Balance Activities head turns Comments vertical and horizonal head turns w/fast walk 2x50ft ea bosu Comments 1. step ups x10 B 2. standing balance trials 3. lat step ups x8B 4. standing squats blue side x10 EC Comments fwd/back walk in hallways x50ft ea SLS Comments 16 in step toe taps x12 B tandem stance Comments 1. tandem stance trials B 2. fwd/back line walk 20ft x2 3. tandem walk fwd 20ft x2 PT-OP-T Assessment and Plan Start: 06/06/21 07:44 Freq: Status: Active Protocol: Document 07/13/21 15:16 [facility] (Rec: 07/13/21 16:07 [facility] [id number]) Physical Therapy Assessment Goals strength Short Term Goal (STG) Pt will be indep w/HEP STG Duration achieved and progressing as able Detention Goal (LTG) Pt will score at least 4+/5 on all LE MMT and 3/5 in all planes on LPM to show improved staiblity in order to allow pt to do typical activities easier. 5/10-much improved LTG Duration 08/07/21 activities Entomology Teacher Goal (LTG) Pt will be able to garden and do typical house chores w/o difficulty or pain. LTG Duration achieved 5/10 gait Short Term Goal (STG) Pt will show good gait pattern w/good push off when ambulating and showing dec instability in gait. STG Duration achieved 5/10 Entomology Teacher Goal (LTG) Pt will be able to go for long walks without inc pain or feeling off balance. 5/10-no back pain, still feels a little ricketty LTG Duration 08/07/21 FELICIA Impairment 13/50 Short Term Goal (STG) Pt will report no greater than 8/50 to show improved function and return to typical activities. 5/10-no change Detention Goal (LTG) Pt will report no greater than 2/50 to show improved function and return to typical activities. LTG Duration 08/07/21 Assessment Summary Assessment Pt did well with balance exercises today and was able to improve form when doing exercises. She had no c/o pain . Physical Therapy Plan Frequency and Duration Frequency of Treatment 2x/Week Duration of Treatment 2 months Plan of Care Start Date 06/07/21 Plan of Care End Date 08/07/21 Next Visit Focus/Plan Next Note Type Treatment Note Next Visit Plan cont to progress core and balance
--- NOTE | 2021-07-17 17:59 | PT.OTN ---
Current Diagnoses Low back pain, unspecified (07/17/21) Physical Therapy Treatment Note PT-OP-A Visit Information Start: 06/06/21 07:44 Freq: Status: Active Protocol: Document 07/17/21 17:55 [facility] (Rec: 07/17/21 17:59 [facility] [id number]) Out-Patient Physical Therapy Visit Information Visit Information Visit Type Treatment Note Visit Note 05/11 Visit Start Time 16:50 Visit Stop Time 17:32 Total Visit Minutes 42 Visit Number 12 Number of WIPER BLENDER Visits 0 PT-OP-B Current Condition Start: 06/06/21 07:44 Freq: Status: Active Protocol: Document 06/07/21 09:05 [facility] (Rec: 06/07/21 11:14 [facility] [id number]) Current Condition History of Current Condition Onset Date 1 month ago Current Complaints LBP, head pain History of Current Condition Pt reports she fell off a radha and hit her head. It was dark and she had to go along side of her house to get in and got up to the area [place] could climb into the garage and was about 10ft up. She was walking along the radha edge in the dark and fell on head and L hip and knees and slid down the rest of the radha. She went over to her neighbors and they brought her to the ER where they did a head CT and she didn't have a skull fracture or brain bleed. This was 1 month ago. She reports LBP is better but did garden and it inc pain. She has rested on her back by laying flat. She stopped doing her exercsies for balance d/t pain. She had no bruising to her back but has had a lot of pain. She had been seeing Cris in the fall for balance and after 6 weeks, she felt like a new person and had not had a fall until she had this fall. Pt reports her biggest problem right now is depression especially since the fall. She has slos lost 2 friends in hospice care in the past week. She has difficulty making herself get going. Pt does report memory was a problem prior to fall and she did a screen and was given tools to help but it is way worse since the fall. Pt reports she typically likes to make art, garden, cook, go for long walks, dosen at 2 art museums where she does tours, watch [employer]. She has only driven 3 times since this fall. She has been exhausted on days that she does outings like go to the store then visit friends. Pt reports she will be watching TV and she feels a little clammy and sweaty. Treatment Goals Patient/Caregiver Goals be able to garden, get backt o balance exercises PT-OP-C Subjective Start: 06/06/21 07:44 Freq: Status: Active Protocol: Document 07/17/21 17:55 [facility] (Rec: 07/17/21 17:59 [facility] [id number]) OP-PT Subjective Patient Comments Patient Comments Pt reports bending over is the only thing bothering her back for the most part. She was stiff after sitting for a long time in car d/t coming too early for appt. Notes feels like evan is getting better . Patient Reported Progress Improving PT-OP-G Mobility & Gait Start: 06/06/21 07:44 Freq: Status: Active Protocol: Document 06/07/21 09:05 [facility] (Rec: 06/07/21 11:14 [facility] [id number]) OP Gait Assessment Comments Gait Comments Pt amb w/evidence for imbalance w/dec DF and heavy foot slap during gait, dec stride length and no push off B and dec B wt acceptance PT-OP-J Posture/Palpation/Skin Start: 06/06/21 07:44 Freq: Status: Active Protocol: Document 07/11/21 16:54 [facility] (Rec: 07/11/21 18:06 [facility] [id number]) Posture Evaluation [facility] Postural Classification System Lumbar Protective Mechanism Left AP 2 Lumbar Protective Mechanism Right AP 2 Lumbar Protective Mechanism Left PA 2 Lumbar Protective Mechanism Right PA 2 PT-OP-K Range of Motion Start: 06/06/21 07:44 Freq: Status: Active Protocol: Document 06/07/21 09:05 [facility] (Rec: 06/07/21 11:14 [facility] [id number]) Lumbar Spine Range of Motion Lumbar Spine Active Percentage Flexion 40 Extension 50 Rotation Left 50 Rotation Right 80 Lateral Flexion Left 80 Lateral Flexion Right 80 Comments pain flex PT-OP-L Special Tests Start: 06/06/21 07:44 Freq: Status: Active Protocol: Document 06/07/21 09:05 [facility] (Rec: 06/07/21 11:14 [facility] [id number]) Special Tests Lumbar Spine Special Tests Slump Test Results positive PT-OP-M Strength Start: 06/06/21 07:44 Freq: Status: Active Protocol: Document 07/11/21 16:54 [facility] (Rec: 07/11/21 18:[id number] Hip Strength Hip Manual Muscle Testing Right Flexion (L2) 4 Good Extension (S1) 4+ Good+ Abduction 4+ Good+ Adduction 4 Good External Rotation 4+ Good+ Internal Rotation 4+ Good+ Left Flexion (L2) 4 Good Extension (S1) 4+ Good+ Abduction 4 Good Adduction 4 Good External Rotation 4+ Good+ Internal Rotation 4+ Good+ Knee Strength Knee Manual Muscle Testing Right Flexion (S2) 5 Normal Extension (L3) 5 Normal Left Flexion (S2) 5 Normal Extension (L3) 5 Normal Ankle/Foot Strength Ankle and Foot Manual Muscle Testing Right Dorsiflexion (L4) 5 Normal Plantarflexion (S1) 5 Normal Left Dorsiflexion (L4) 5 Normal Plantarflexion (S1) 5 Normal Comments PF tested seatd PT-OP-Q Treatments Start: 06/06/21 07:44 Freq: Status: Active Protocol: Document 07/17/21 17:55 [facility] (Rec: 07/17/21 17:59 [facility] [id number]) Gym Equipment Shuttle Balance red clips Comments fwd& side: WBOS & NBOS fwd: staggerd stance B fwd & side WBOS w/wt shifts Manual Therapy Treatment Soft Tissue Mobilization lumbar Body Location B ES Mobilization Type Myofascial Release,Rolling, Strumming,Sustained Pressure Intensity/Depth Moderate Body Position Sitting Comments w/flex Joint Mobilizations sacrum Joint caudal FM L Neuro Re-Education Treatment Balance Activities head turns Comments vertical and horizonal head turns w/fast walk 4x50ft bosu Comments 1. step ups x10 B 2. standing balance trials 3. lat step ups x8B 4. standing squats blue side x10 EC Comments fwd/back walk in hallways x50ft ea PT-OP-T Assessment and Plan Start: 06/06/21 07:44 Freq: Status: Active Protocol: Document 07/17/21 17:55 [facility] (Rec: 07/17/21 17:59 [facility] [id number]) Physical Therapy Assessment Goals strength Short Term Goal (STG) Pt will be indep w/HEP STG Duration achieved and progressing as able Assignment Editor Goal (LTG) Pt will score at least 4+/5 on all LE MMT and 3/5 in all planes on LPM to show improved staiblity in order to allow pt to do typical activities easier. 510-much improved LTG Duration 08/07/21 activities Skilled Nursing Goal (LTG) Pt will be able to garden and do typical house chores w/o difficulty or pain. LTG Duration achieved 510 gait Short Term Goal (STG) Pt will show good gait pattern w/good push off when ambulating and showing dec instability in gait. STG Duration achieved 5 Skilled Nursing Goal (LTG) Pt will be able to go for long walks without inc pain or feeling off balance. 510-no back pain, still feels a little ricketty LTG Duration 08/07/21 FELICIA Impairment 13/50 Short Term Goal (STG) Pt will report no greater than 8/50 to show improved function and return to typical activities. 10-no change Skilled Nursing Goal (LTG) Pt will report no greater than 2/50 to show improved function and return to typical activities. LTG Duration 08/07/21 Assessment Summary Assessment Pt ramsay dimproved ability to bend forward by about 2 in after manual and had less pain w/coming back to standing after. Physical Therapy Plan Frequency and Duration Frequency of Treatment 2x/Week Duration of Treatment 2 months Plan of Care Start Date 06/07/21 Plan of Care End Date 08/07/21 Next Visit Focus/Plan Next Note Type Treatment Note Next Visit Plan cont to progress core and balance; manual to improve back limits
--- NOTE | 2021-07-19 18:38 | PT.OTN ---
Current Diagnoses Low back pain, unspecified (07/19/21) Physical Therapy Treatment Note PT-OP-A Visit Information Start: 06/06/21 07:44 Freq: Status: Active Protocol: Document 07/19/21 18:35 [facility] (Rec: 07/19/21 18:38 [facility] [id number]) Out-Patient Physical Therapy Visit Information Visit Information Visit Type Treatment Note Visit Note 06/11 Visit Start Time 16:05 Visit Stop Time 16:45 Total Visit Minutes 40 Visit Number 13 Number of PRINTS AND DRAWINGS CURATOR Visits 0 PT-OP-B Current Condition Start: 06/06/21 07:44 Freq: Status: Active Protocol: Document 06/07/21 09:05 [facility] (Rec: 06/07/21 11:14 [facility] [id number]) Current Condition History of Current Condition Onset Date 1 month ago Current Complaints LBP, head pain History of Current Condition Pt reports she fell off a radha and hit her head. It was dark and she had to go along side of her house to get in and got up to the area sloane [place] could climb into the garage and was about 10ft up. She was walking along the radha edge in the dark and fell on head and L hip and knees and slid down the rest of the radha. She went over to her neighbors and they brought her to the ER where they did a head CT and she didn't have a skull fracture or brain bleed. This was 1 month ago. She reports LBP is better but did garden and it inc pain. She has rested on her back by laying flat. She stopped doing her exercsies for balance d/t pain. She had no bruising to her back but has had a lot of pain. She had been seeing Cris in the fall for balance and after 6 weeks, she felt like a new person and had not had a fall until she had this fall. Pt reports her biggest problem right now is depression especially since the fall. She has slos lost 2 friends in hospice care in the past week. She has difficulty making herself get going. Pt does report memory was a problem prior to fall and she did a screen and was given tools to help but it is way worse since the fall. Pt reports she typically likes to make art, garden, cook, go for long walks, dosen at 2 art museums where she does tours, watch [employer]. She has only driven 3 times since this fall. She has been exhausted on days that she does outings like go to the store then visit friends. Pt reports she will be watching TV and she feels a little clammy and sweaty. Treatment Goals Patient/Caregiver Goals be able to garden, get backt o balance exercises PT-OP-C Subjective Start: 06/06/21 07:44 Freq: Status: Active Protocol: Document 07/19/21 18:35 [facility] (Rec: 07/19/21 18:38 [facility] [id number]) OP-PT Subjective Patient Comments Patient Comments Pt reprots she feels like she is doign well and doens't have a lot of concerns at this time. feels flex is improved from last time PT-OP-G Mobility & Gait Start: 06/06/21 07:44 Freq: Status: Active Protocol: Document 06/07/21 09:05 [facility] (Rec: 06/07/21 11:14 [facility] [id number]) OP Gait Assessment Comments Gait Comments Pt amb w/evidence for imbalance w/dec DF and heavy foot slap during gait, dec stride length and no push off B and dec B wt acceptance PT-OP-J Posture/Palpation/Skin Start: 06/06/21 07:44 Freq: Status: Active Protocol: Document 07/11/21 16:54 [facility] (Rec: 07/11/21 18:06 [facility] [id number]) Posture Evaluation [facility] Postural Classification System Lumbar Protective Mechanism Left AP 2 Lumbar Protective Mechanism Right AP 2 Lumbar Protective Mechanism Left PA 2 Lumbar Protective Mechanism Right PA 2 PT-OP-K Range of Motion Start: 06/06/21 07:44 Freq: Status: Active Protocol: Document 06/07/21 09:05 [facility] (Rec: 06/07/21 11:14 [facility] [id number]) Lumbar Spine Range of Motion Lumbar Spine Active Percentage Flexion 40 Extension 50 Rotation Left 50 Rotation Right 80 Lateral Flexion Left 80 Lateral Flexion Right 80 Comments pain flex PT-OP-L Special Tests Start: 06/06/21 07:44 Freq: Status: Active Protocol: Document 06/07/21 09:05 [facility] (Rec: 06/07/21 11:14 [facility] [id number]) Special Tests Lumbar Spine Special Tests Slump Test Results positive PT-OP-M Strength Start: 06/06/21 07:44 Freq: Status: Active Protocol: Document 07/11/21 16:54 [facility] (Rec: 07/11/21 18:06 [facility] [id number]) Hip Strength Hip Manual Muscle Testing Right Flexion (L2) 4 Good Extension (S1) 4+ Good+ Abduction 4+ Good+ Adduction 4 Good External Rotation 4+ Good+ Internal Rotation 4+ Good+ Left Flexion (L2) 4 Good Extension (S1) 4+ Good+ Abduction 4 Good Adduction 4 Good External Rotation 4+ Good+ Internal Rotation 4+ Good+ Knee Strength Knee Manual Muscle Testing Right Flexion (S2) 5 Normal Extension (L3) 5 Normal Left Flexion (S2) 5 Normal Extension (L3) 5 Normal Ankle/Foot Strength Ankle and Foot Manual Muscle Testing Right Dorsiflexion (L4) 5 Normal Plantarflexion (S1) 5 Normal Left Dorsiflexion (L4) 5 Normal Plantarflexion (S1) 5 Normal Comments PF tested seatd PT-OP-Q Treatments Start: 06/06/21 07:44 Freq: Status: Active Protocol: Document 07/19/21 18:35 [facility] (Rec: 07/19/21 18:38 [facility] [id number]) Gym Equipment Shuttle Balance red clips Comments fwd& side: WBOS & NBOS fwd: staggerd stance B ballon toss fwd WBOS & NBOS & side WBOS Manual Therapy Treatment Joint Mobilizations hip Joint B flex FM Neuro Re-Education Treatment Balance Activities head turns Comments vertical and horizonal head diagonal turns w/fast walk 4x50ft bosu Comments 1. step ups x10 B 2. standing balance trials 3. lat step ups x8B 4. standing squats blue side x10 EC Comments fwd/back walk in hallways then fwd/back may x50ft ea PT-OP-T Assessment and Plan Start: 06/06/21 07:44 Freq: Status: Active Protocol: Document 07/19/21 18:35 [facility] (Rec: 07/19/21 18:38 [facility] [id number]) Physical Therapy Assessment Goals strength Short Term Goal (STG) Pt will be indep w/HEP STG Duration achieved and progressing as able Prison Goal (LTG) Pt will score at least 4+/5 on all LE MMT and 3/5 in all planes on LPM to show improved staiblity in order to allow pt to do typical activities easier. 5/10-much improved LTG Duration 08/07/21 activities Nursing Clinical Director Goal (LTG) Pt will be able to garden and do typical house chores w/o difficulty or pain. LTG Duration achieved 510 gait Short Term Goal (STG) Pt will show good gait pattern w/good push off when ambulating and showing dec instability in gait. STG Duration achieved 510 Nursing Clinical Director Goal (LTG) Pt will be able to go for long walks without inc pain or feeling off balance. 5/10-no back pain, still feels a little ricketty LTG Duration 08/07/21 FELICIA Impairment 13/50 Short Term Goal (STG) Pt will report no greater than 8/50 to show improved function and return to typical activities. 10-no change Prison Goal (LTG) Pt will report no greater than 2/50 to show improved function and return to typical activities. LTG Duration 08/07/21 Assessment Summary Assessment Pt did well with balance activities w/improved performance even w/difficult activtiies. she ahd imrpoved ease of flex after manual today Physical Therapy Plan Frequency and Duration Frequency of Treatment 2x/Week Duration of Treatment 2 months Plan of Care Start Date 06/07/21 Plan of Care End Date 08/07/21 Next Visit Focus/Plan Next Note Type Treatment Note Next Visit Plan cont to progress core and balance; manual to improve back limits
--- NOTE | 2021-08-03 13:45 | PT.OTN ---
Current Diagnoses Low back pain, unspecified (08/03/21) Physical Therapy Treatment Note PT-OP-A Visit Information Start: 06/06/21 07:44 Freq: Status: Active Protocol: Document 08/03/21 13:00 [facility] (Rec: 08/03/21 13:45 [facility] [id number]) Out-Patient Physical Therapy Visit Information Visit Information Visit Type Progress Note Visit Start Time 13:00 Visit Stop Time 13:40 Total Visit Minutes 40 Visit Number 14 Number of NURSING CARE ATTENDANT Visits 0 PT-OP-B Current Condition Start: 06/06/21 07:44 Freq: Status: Active Protocol: Document 06/07/21 09:05 [facility] (Rec: 06/07/21 11:14 [facility] [id number]) Current Condition History of Current Condition Onset Date 1 month ago Current Complaints LBP, head pain History of Current Condition Pt reports she fell off a radha and hit her head. It was dark and she had to go along side of her house to get in and got up to the area [place] could climb into the garage and was about 10ft up. She was walking along the radha edge in the dark and fell on head and L hip and knees and slid down the rest of the radha. She went over to her neighbors and they brought her to the ER where they did a head CT and she didn't have a skull fracture or brain bleed. This was 1 month ago. She reports LBP is better but did garden and it inc pain. She has rested on her back by laying flat. She stopped doing her exercsies for balance d/t pain. She had no bruising to her back but has had a lot of pain. She had been seeing Cris in the fall for balance and after 6 weeks, she felt like a new person and had not had a fall until she had this fall. Pt reports her biggest problem right now is depression especially since the fall. She has slos lost 2 friends in hospice care in the past week. She has difficulty making herself get going. Pt does report memory was a problem prior to fall and she did a screen and was given tools to help but it is way worse since the fall. Pt reports she typically likes to make art, garden, cook, go for long walks, dosen at 2 art museums where she does tours, watch [employer]. She has only driven 3 times since this fall. She has been exhausted on days that she does outings like go to the store then visit friends. Pt reports she will be watching TV and she feels a little clammy and sweaty. Treatment Goals Patient/Caregiver Goals be able to garden, get backt o balance exercises PT-OP-C Subjective Start: 06/06/21 07:44 Freq: Status: Active Protocol: Document 08/03/21 13:00 [facility] (Rec: 08/03/21 13:45 [facility] [id number]) OP-PT Subjective Patient Comments Patient Comments Pt reprots she is doing well. No issues PT-OP-E Functional Tests Start: 06/06/21 07:44 Freq: Status: Active Protocol: Document 08/03/21 13:00 [facility] (Rec: 08/03/21 13:45 [facility] [id number]) Functional Tests Dynamic Gait Index (DGI) Score 24 Functional Gait Assessment Score 28 PT-OP-G Mobility & Gait Start: 06/06/21 07:44 Freq: Status: Active Protocol: Document 06/07/21 09:05 [facility] (Rec: 06/07/21 11:14 [facility] [id number]) OP Gait Assessment Comments Gait Comments Pt amb w/evidence for imbalance w/dec DF and heavy foot slap during gait, dec stride length and no push off B and dec B wt acceptance PT-OP-J Posture/Palpation/Skin Start: 06/06/21 07:44 Freq: Status: Active Protocol: Document 08/03/21 13:00 [facility] (Rec: 08/03/21 13:45 [facility] [id number]) Posture Evaluation [facility] Postural Classification System Lumbar Protective Mechanism Left AP 3 Lumbar Protective Mechanism Right AP 3 Lumbar Protective Mechanism Left PA 3 Lumbar Protective Mechanism Right PA 3 PT-OP-K Range of Motion Start: 06/06/21 07:44 Freq: Status: Active Protocol: Document 06/07/21 09:05 [facility] (Rec: 06/07/21 11:14 [facility] [id number]) Lumbar Spine Range of Motion Lumbar Spine Active Percentage Flexion 40 Extension 50 Rotation Left 50 Rotation Right 80 Lateral Flexion Left 80 Lateral Flexion Right 80 Comments pain flex PT-OP-L Special Tests Start: 06/06/21 07:44 Freq: Status: Active Protocol: Document 06/07/21 09:05 [facility] (Rec: 06/07/21 11:14 [facility] [id number]) Special Tests Lumbar Spine Special Tests Slump Test Results positive PT-OP-M Strength Start: 06/06/21 07:44 Freq: Status: Active Protocol: Document 08/03/21 13:00 [facility] (Rec: 08/03/21 13:45 [facility] [id number]) Hip Strength Hip Manual Muscle Testing Right Flexion (L2) 5 Normal Extension (S1) 5 Normal Abduction 5 Normal Adduction 4+ Good+ External Rotation 5 Normal Internal Rotation 5 Normal Left Flexion (L2) 4+ Good+ Extension (S1) 5 Normal Abduction 5 Normal Adduction 5 Normal External Rotation 5 Normal Internal Rotation 5 Normal Knee Strength Knee Manual Muscle Testing Right Flexion (S2) 5 Normal Extension (L3) 5 Normal Left Flexion (S2) 5 Normal Extension (L3) 5 Normal Ankle/Foot Strength Ankle and Foot Manual Muscle Testing Right Dorsiflexion (L4) 5 Normal Plantarflexion (S1) 5 Normal Left Dorsiflexion (L4) 5 Normal Plantarflexion (S1) 5 Normal Comments PF tested seatd PT-OP-Q Treatments Start: 06/06/21 07:44 Freq: Status: Active Protocol: Document 08/03/21 13:00 [facility] (Rec: 08/03/21 13:45 [facility] [id number]) Gym Equipment Therapeutic Ball sitting Ball Size/Color 75 cm w/biking on erg x2 minrail prn Therapeutic Exercises Standing Exercises stretch Standing Exercise Name flex fwd stretched progressed to bottoms up Side bilateral Reps/Minutes 3 min wall posture Standing Exercise Name on door jam Side bilateral Reps/Minutes 1 min Other Exercises cat/camel Reps/Minutes 8 Neuro Re-Education Treatment Balance Activities SLS Comments trials B tandem stance Details trials B Self-Care/Home Management Treatment Education Other Education discussion of HEP and working on verbal review. Discussed options for other workouts like going for walks, gardening, vianey chi or beginners yoga. Discussed if tries bike do w/kid there to help her as needed. PT-OP-T Assessment and Plan Start: 06/06/21 07:44 Freq: Status: Active Protocol: Document 08/03/21 13:00 [facility] (Rec: 08/03/21 13:45 [facility] [id number]) Physical Therapy Assessment Goals strength Short Term Goal (STG) Pt will be indep w/HEP STG Duration achieved and progressing as able Customer Service Representative Teacher Goal (LTG) Pt will score at least 4+/5 on all LE MMT and 3/5 in all planes on LPM to show improved staiblity in order to allow pt to do typical activities easier. 510-much improved LTG Duration achieved activities Senior Living Goal (LTG) Pt will be able to garden and do typical house chores w/o difficulty or pain. LTG Duration achieved 07/11 gait Short Term Goal (STG) Pt will show good gait pattern w/good push off when ambulating and showing dec instability in gait. STG Duration achieved 07/11 Senior Living Goal (LTG) Pt will be able to go for long walks without inc pain or feeling off balance. 510-no back pain, still feels a little ricketty LTG Duration achieved FELICIA Impairment 13/50 Short Term Goal (STG) Pt will report no greater than 8/50 to show improved function and return to typical activities. 07/11-no change Customer Service Representative Teacher Goal (LTG) Pt will report no greater than 2/50 to show improved function and return to typical activities. LTG Duration 450 Assessment Summary Assessment Pt has made excellent progress w/therapy and is rarely limited by her back and her balance is much improved. She is back to her typical activities. Physical Therapy Plan Discharge Physical Therapy Discharge Reasons Goals Met
== END 2021-08-04 13:25 | disposition home or self-care (01) ==
LOC: PHYS 13:00
PROVIDERS: Family Provider Internal Medicine; PCP Internal Medicine; Referring Provider Internal Medicine; Visit Provider Internal Medicine
DX: M54.50 Low back pain, unspecified (principal)
CPT/HCPCS: 97110; 97112; 97140; 97161; 97530; 97535; 97750

== ENCOUNTER → 2022-01-12 11:56 | Outpatient (CLI) | payer MEDICARE, SELFPAY ==
[2022-01-12 13:15] LABS: Hematocrit 42.1 % (36-46); Hemoglobin 13.9 g/dL (12.0-16.0); Mean Corpuscular HGB Conc 33.1 % (30-36); Mean Corpuscular Hemoglobin 28.4 PG (26-34); Mean Corpuscular Volume 85.9 fL (80-100); Platelet Count 171 X10^3/uL (150-400); Red Cell Distribution Width 14.5 % (11.6-14.8); White Blood Cell Count 5.6 X10^3/uL (4.5-11.0)
[2022-01-12 15:41] LABS: Alanine Aminotransferase 29 IU/L (<35); Albumin Globulin Ratio 1.5 (1.0-2.8); Alkaline Phosphatase 54 U/L (38-126); Aspartate Aminotransferase 28 IU/L (14-36); BUN Creatinine Ratio 26.3 (6-22); Bilirubin Total 0.4 mg/dL (0.2-1.3); Blood Urea Nitrogen 21 mg/dL (7-17); Calcium 9.4 mg/dL (8.4-10.2); Carbon Dioxide 30 mmol/L (22-32); Chloride 103 mmol/L (98-107); Cholesterol 212 mg/dL (140-199); Estimated Glomerular Filt Rate > 60 mL/min (>60); Globulin 2.7 g/dL (1.7-4.1); Glucose 98 mg/dL (80-110); HDL Cholesterol 70 mg/dL (40-60); HEMOLYSIS < 15 (0-50); LDL Cholesterol Calculated 110 mg/dL (<100); Potassium 4.5 mmol/L (3.4-5.1); Sodium 139 mmol/L (137-145); Total Protein 6.7 g/dL (6.3-8.2); Triglycerides 159 mg/dL (35-150)
[2022-01-12 15:48] LABS: Vitamin D 25 Hydroxy (D3) 37.2 ng/mL (30.0-100.0)
[2022-01-12 16:01] LABS: TSH w/ Reflex to FT4 2.56 uIU/mL (0.47-4.68)
== END ==
PROVIDERS: Family Provider Internal Medicine; PCP Internal Medicine; Referring Provider Internal Medicine; Visit Provider Internal Medicine
DX: E55.9 Vitamin D deficiency, unspecified (principal); E78.2 Mixed hyperlipidemia; G47.33 Obstructive sleep apnea (adult) (pediatric); M85.89 Other specified disorders of bone density and structure, multiple sites; Z99.89 Dependence on other enabling machines and devices
CPT/HCPCS: 36415; 80053; 80061; 82306; 84443; 85027

== ENCOUNTER → 2022-01-23 10:24 | Outpatient (CLI) | payer MEDICARE, SELFPAY | PROVIDERS: Family Provider Internal Medicine; PCP Internal Medicine; Referring Provider Internal Medicine; Visit Provider Internal Medicine | DX: M85.851 Other specified disorders of bone density and structure, right thigh (principal); Z13.820 Encounter for screening for osteoporosis; Z78.0 Asymptomatic menopausal state | CPT/HCPCS: 77080 ==

== ENCOUNTER → 2022-12-20 12:31 | Outpatient (CLI) | payer MEDICARE, SELFPAY ==
--- NOTE | 2022-12-20 | DI.MG.S_ITS ---
BILATERAL DIGITAL SCREENING MAMMOGRAM 3D/2D WITH CAD: 12/20/2022 CLINICAL: Routine screening. Family history of breast cancer. Comparison is made to exams dated: 02/21/2021 mammogram, 02/13/2017 mammogram, and 02/19/2014 mammogram - [facility]. There are scattered areas of fibroglandular density in both breasts (category b / 25%-50% glandular tissue). Current study was also evaluated with a Computer Aided Detection (CAD) system. No significant masses, calcifications, or other findings are seen in either breast. There has been no significant interval change. IMPRESSION: NEGATIVE There is no mammographic evidence of malignancy. A 1 year screening mammogram is recommended. Based on the Tyrer Cuzick model (a risk assessment model) the patient's lifetime risk is 5.1% and her 10 year risk is 0.0%. According to the ACR, ACS, and NCCN guidelines, an annual breast MRI exam along with mammogram is recommended if the patient's lifetime risk is 20% or greater. This exam was interpreted at Station ID: [id number]. NOTE: For mammograms, a report in lay terms will be sent to the patient. Approximately 15% of breast malignancies will not be visualized mammographically. In the management of a palpable breast mass, a negative mammogram must not discourage biopsy of a clinically suspicious lesion. Electronically Signed By: Stephanie fraser/al:12/20/2022 17:20:21 letter sent: Normal Exam ACR BI-RADS Category 1: Negative [id number]
== END ==
PROVIDERS: Family Provider Internal Medicine; PCP Internal Medicine; Referring Provider Internal Medicine; Visit Provider Internal Medicine
DX: Z12.31 Encounter for screening mammogram for malignant neoplasm of breast (principal); Z80.3 Family history of malignant neoplasm of breast
CPT/HCPCS: 77063; 77067

== ENCOUNTER → 2023-01-14 14:13 | Outpatient (CLI) | payer MEDICARE, SELFPAY ==
[2023-01-14 15:34] LABS: Aspartate Aminotransferase 28 IU/L (14-36); BUN Creatinine Ratio 32.1 (6-22); Blood Urea Nitrogen 27 mg/dL (7-17); Calcium 9.6 mg/dL (8.4-10.2); Carbon Dioxide 29 mmol/L (22-32); Chloride 103 mmol/L (98-107); Cholesterol 219 mg/dL (140-199); Estimated Glomerular Filt Rate > 60 mL/min (>60); Glucose 96 mg/dL (80-110); HDL Cholesterol 66 mg/dL (40-60); HEMOLYSIS < 15 (0-50); LDL Cholesterol Calculated 97 mg/dL (<100); Potassium 4.4 mmol/L (3.4-5.1); Sodium 137 mmol/L (137-145); Triglycerides 279 mg/dL (35-150)
== END ==
PROVIDERS: Family Provider Internal Medicine; PCP Internal Medicine; Referring Provider Internal Medicine; Visit Provider Internal Medicine
DX: E78.2 Mixed hyperlipidemia (principal); G47.33 Obstructive sleep apnea (adult) (pediatric); Z99.89 Dependence on other enabling machines and devices
CPT/HCPCS: 36415; 80048; 80061; 84450

== ENCOUNTER → 2024-02-14 10:11 | Outpatient (CLI) | payer MEDICARE, SELFPAY ==
[2024-02-14 11:02] LABS: Add Manual Diff / Slide Review NO; Basophils Absolute Auto 0 /uL (0-100); Basophils Percent Auto 0.9 % (0-2); Eosinophils Absolute Auto 300 /uL (0-450); Eosinophils Percent Auto 5.4 % (2-4); Hematocrit 40.1 % (36-46); Hemoglobin 13.2 g/dL (12.0-16.0); Lymphocytes Absolute Auto 1600 /uL (1100-4500); Lymphocytes Percent Auto 33.1 % (25-40); Mean Corpuscular HGB Conc 32.9 % (30-36); Mean Corpuscular Hemoglobin 29.1 PG (26-34); Mean Corpuscular Volume 88.4 fL (80-100); Monocytes Absolute Auto 400 /uL (0-900); Monocytes Percent Auto 7.3 % (3-14); Neutrophils Absolute Auto 2600 /uL (1500-7000); Neutrophils Percent Auto 53.3 % (50-75); Platelet Count 180 X10^3/uL (150-400); Red Blood Cell Count 4.53 X10^6/uL (4.0-5.2); Red Cell Distribution Width 14.6 % (11.6-14.8); White Blood Cell Count 4.9 X10^3/uL (4.5-11.0)
[2024-02-14 11:25] LABS: Alanine Aminotransferase 24 IU/L (<35); Albumin 3.6 g/dL (3.5-5.0); Albumin Globulin Ratio 1.6 (1.0-2.8); Alkaline Phosphatase 47 U/L (38-126); Aspartate Aminotransferase 34 IU/L (14-36); BUN Creatinine Ratio 22.9 (6-22); Bilirubin Total 0.5 mg/dL (0.2-1.3); Blood Urea Nitrogen 16 mg/dL (7-17); Calcium 9.2 mg/dL (8.4-10.2); Carbon Dioxide 29 mmol/L (22-32); Chloride 107 mmol/L (98-107); Cholesterol 182 mg/dL (140-199); Estimated Glomerular Filt Rate > 60 mL/min (>60); Globulin 2.3 g/dL (1.7-4.1); Glucose 94 mg/dL (80-110); HDL Cholesterol 72 mg/dL (40-60); HEMOLYSIS 17 (0-50); LDL Cholesterol Calculated 86 mg/dL (<100); Potassium 4.2 mmol/L (3.4-5.1); Sodium 136 mmol/L (137-145); Total Protein 5.9 g/dL (6.3-8.2); Triglycerides 119 mg/dL (35-150)
[2024-02-14 11:54] LABS: TSH w/ Reflex to FT4 1.81 uIU/mL (0.47-4.68)
== END ==
PROVIDERS: Family Provider Internal Medicine; PCP Internal Medicine; Referring Provider Internal Medicine; Visit Provider Internal Medicine
DX: E78.2 Mixed hyperlipidemia (principal); M85.80 Other specified disorders of bone density and structure, unspecified site; G62.9 Polyneuropathy, unspecified
CPT/HCPCS: 36415; 80053; 80061; 84443; 85025

== ENCOUNTER → 2024-08-07 12:39 | Outpatient (CLI) | payer MEDICARE, SELFPAY ==
--- NOTE | 2024-08-07 12:40 | DI.MG.S_ITS ---
MM screening mammo BI: 08/07/2024. BI-RADS: 1 CLINICAL: 78-year old female for bilateral screening mammogram. Tyrer-Cuzick lifetime risk of 6.1%. Current reported family history of breast cancer: mother. PRIOR EXAMS 12/20/2022, 02/21/2021, 02/13/2017. MAMMOGRAPHY TECHNIQUE: 2D and 3D (tomosynthesis) digital mammographic views obtained, with additional images as needed for full coverage. Current study was also evaluated with a Computer Aided Detection (CAD) system. DENSITY C. The breasts are heterogeneously dense, which may obscure small masses. MAMMOGRAPHY FINDINGS Bilateral: No suspicious mass, asymmetry, microcalcification, or other abnormality seen. IMPRESSION: * No evidence of malignancy. RECOMMENDATIONS Bilateral * Annual screening mammography. OVERALL ASSESSMENT CATEGORY BI-RADS-1: Negative. The [employer] recommends annual screening mammography beginning at age 40 for women with average risk of breast cancer. ELECTRONICALLY SIGNED: Jason Landaverde M.D. on 08/07/2024 at 11:00:03 PM PT Interpreting Station ID: [id number]
== END ==
LOC: MAMMO 12:39
PROVIDERS: Family Provider Internal Medicine; PCP Internal Medicine; Referring Provider Internal Medicine; Visit Provider Internal Medicine
DX: Z12.31 Encounter for screening mammogram for malignant neoplasm of breast (principal); Z80.3 Family history of malignant neoplasm of breast; R92.333 Mammographic heterogeneous density, bilateral breasts
CPT/HCPCS: 77063; 77067

== ENCOUNTER → 2025-02-22 11:48 | Outpatient (CLI) | payer MEDICARE, SELFPAY ==
[2025-02-22 12:24] LABS: Hematocrit 42.0 % (36-46); Hemoglobin 14.1 g/dL (12.0-16.0); Mean Corpuscular HGB Conc 33.6 % (30-36); Mean Corpuscular Hemoglobin 29.2 PG (26-34); Mean Corpuscular Volume 86.7 fL (80-100); Platelet Count 191 X10^3/uL (150-400)
[2025-02-22 12:33] LABS: Hemoglobin A1C% w Est Avg Glu 5.5 % (4.0-6.0)
[2025-02-22 12:44] LABS: Alanine Aminotransferase 23 IU/L (<35); Albumin 4.0 g/dL (3.5-5.0); Albumin Globulin Ratio 1.6 (1.0-2.8); Alkaline Phosphatase 54 U/L (38-126); Blood Urea Nitrogen 15 mg/dL (7-17); Calcium 9.3 mg/dL (8.4-10.2); Carbon Dioxide 27 mmol/L (22-32); Chloride 106 mmol/L (98-107); Cholesterol 218 mg/dL (140-199); Estimated Glomerular Filt Rate > 60 mL/min (>60); Globulin 2.5 g/dL (1.7-4.1); Glucose 98 mg/dL (70-99); HDL Cholesterol 68 mg/dL (40-60); HEMOLYSIS < 15 (0-50); Potassium 4.3 mmol/L (3.4-5.1); Sodium 137 mmol/L (137-145); Total Protein 6.5 g/dL (6.3-8.2); Triglycerides 367 mg/dL (35-150)
[2025-02-22 13:14] LABS: TSH w/ Reflex to FT4 2.24 uIU/mL (0.47-4.68)
== END ==
PROVIDERS: PCP Internal Medicine; Referring Provider Internal Medicine; Visit Provider Internal Medicine
DX: E78.2 Mixed hyperlipidemia (principal); R73.01 Impaired fasting glucose; R53.83 Other fatigue
CPT/HCPCS: 36415; 80053; 80061; 83036; 84443; 85027